=== PATIENT | male | born 1945 | race Caucasian/White ===

== ENCOUNTER → 2016-10-18 | Outpatient (CLI) | payer MEDICARE, OTHER ==
--- NOTE | 2016-10-18 14:56 | RADIOLOGY REPORT (SQ) ---
EXAM DESCRIPTION: CHEST PA/LATERAL COMPLETED DATE/TIME: 10/18/2016 2:32 pm REASON FOR STUDY: APHONIA,PRE OP COMPARISON: None. EXAM PARAMETERS: NUMBER OF VIEWS: two views TECHNIQUE: Digital Frontal and Lateral radiographic views of the chest acquired. RADIATION DOSE: NA LIMITATIONS: none FINDINGS: LUNGS AND PLEURA: Mild chronic interstitial changes are present in the lung bases. MEDIASTINUM AND HILAR STRUCTURES: No masses or contour abnormalities. HEART AND VASCULAR STRUCTURES: Heart normal size. No evidence for failure. BONES: No acute findings. HARDWARE: None in the chest. OTHER: No other significant finding. IMPRESSION: Mild chronic lung changes with no acute cardiopulmonary disease. TECHNICAL DOCUMENTATION: JOB ID: [id number] [employer]- All Rights Reserved
[2016-10-18 14:57] LABS: HEMATOCRIT 43.2 % (37.9-51.0); HEMOGLOBIN 14.9 g/dL (13.5-17.0); HGB HCT DIFFERENCE 1.5; MEAN CORPUSCULAR HEMOGLOBIN 32.4 pg (27.0-33.4); MEAN CORPUSCULAR HGB CONC 34.4 g/dL (32.0-36.0); MEAN CORPUSCULAR VOLUME 94 fl (80-97); RED BLOOD COUNT 4.59 10^6/uL (4.35-5.55); WHITE BLOOD COUNT 4.4 10^3/uL (4.0-10.5)
[2016-10-18 15:25] LABS: ANION GAP 12 (5-19); BLOOD UREA NITROGEN 9 mg/dL (7-20); CALCIUM 9.7 mg/dL (8.4-10.2); CARBON DIOXIDE 26 mmol/L (22-30); CHLORIDE 102 mmol/L (98-107); CREATININE RESULT 0.74 mg/dL (0.52-1.25); GLUCOSE 85 mg/dL (75-110); POTASSIUM 4.2 mmol/L (3.6-5.0); SODIUM 139.7 mmol/L (137-145)
--- NOTE | 2016-10-18 20:33 | EKG REPORT ---
SEVERITY:- ABNORMAL ECG - SINUS RHYTHM BORDERLINE INFERIOR Q WAVES : Confirmed by: Darrell Gudino 18-Oct-2016 20:32:00
== END ==
LOC: OD 13:30
PROVIDERS: ATTEND Otolaryngology
DX: R49.1 Aphonia (principal)
CPT/HCPCS: 36415; 71020; 80048; 85027; 93005; 93010

== ENCOUNTER → 2017-03-23 | Outpatient (CLI) | payer MEDICARE, OTHER ==
--- NOTE | 2017-03-23 08:59 | RADIOLOGY REPORT (SQ) ---
EXAM DESCRIPTION: U/S ABD AORTIC SCREENING COMPLETED DATE/TIME: 03/23/2017 8:12 am REASON FOR STUDY: ENCOUNTER FOR SCREENING FOR CARDIOVASCULAR DISORDERS (Z13.6) Z72.0 TOBACCO USE Z8 7.891 PERSONAL HISTORY OF NICOTINE DEPENDENCE Z13.6 ENCOUNTER FOR SCREENING FOR CARDIOVASCULAR DISO RDERS COMPARISON: None. TECHNIQUE: Static and dynamic grayscale images acquired of the aorta and stored on PACs. Selected co bisi Doppler and spectral images recorded. LIMITATIONS: Limited evaluation due to bowel gas. FINDINGS: AORTIC CALIBER MAXIMAL PROXIMAL: 3.2 cm. MID: 2.53 cm. DISTAL: 1.8 cm. ILIAC DIAMETER RIGHT: Nonvisualized. LEFT nonvisualized. IMPRESSION: Limited examination due to bowel gas. 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 COMMENT: Aorta screening examinations categories: Negative - less than 3 cm. TECHNICAL DOCUMENTATION: JOB ID: [id number] [employer]- All Rights Reserved
--- NOTE | 2017-03-23 10:03 | RADIOLOGY REPORT (SQ) ---
EXAM DESCRIPTION: CT LUNG CANCER SCREENING COMPLETED DATE/TIME: 03/23/2017 7:49 am REASON FOR STUDY: TOBACCO USE (Z72.0), HX OF NICOTINE DEPENDENCE (Z87.891), ENC FOR SCRN CARD Z72.0 TOBACCO USE Z87.891 PERSONAL HISTORY OF NICOTINE DEPENDENCE Z13.6 ENCOUNTER FOR SCREENING FOR CARD IOVASCULAR DISORDERS Has the patient had a Chest CT scan within the past year? No Was the patient offered tobacco cessation counseling? Yes Was the patient engaged in shared decision making for this test? Yes Does the patient have signs or symptoms of Lung Cancer? No Is the patient a smoker? Yes How many packs per year? 365. 1 pack per day. How many years since quitting smoking? NA Patients age: 71 COMPARISON: None. TECHNIQUE: Low Dose CT scan performed of the chest without intravenous contrast for purposes of scre ening for lung cancer. Images reviewed with lung, soft tissue and bone windows. Reconstructed coron al and sagittal MPR images reviewed. All images stored on PACS. All CT scanners at this facility use dose modulation, iterative reconstruction, and/or weight based d osing when appropriate to reduce radiation dose to as low as reasonably achievable (ALARA). [facility]: Dose Right [facility]: CareDose [facility]: Dose Right [facility]: Teradose 4D [facility]: [employer] RADIATION DOSE: CT Rad equipment meets quality standard of care and radiation dose reduction techniq ues were employed. CTDIvol: 2.1 mGy. DLP: 79 mGy-cm. mGy. . LIMITATIONS: None FINDINGS: LUNGS AND PLEURA: Centrilobular emphysema. Bullous disease noted right lower lobe. Fibr otic scarring both lower lobes and lingula. No pulmonary nodules identified. HILAR AND MEDIASTINAL STRUCTURES: No mediastinal or hilar adenopathy. HEART AND VASCULAR STRUCTURES: No aortic aneurysm. No pericardial effusion. No cardiac devices. CORONARY ARTERY CALCIFICATIONS: Atherosclerotic coronary artery calcification. UPPER ABDOMEN, THYROID, BONES, OTHER SOFT TISSUES: Eventration left hemidiaphragm. IMPRESSION: NO SIGNIFICANT FINDING IN THE LUNGS ON NON-CONTRASTED CHEST CT. NO OTHER CLINICALLY SIGNIFICANT/POTENTIALLY CLINICALLY SIGNIFICANT FINDINGS LUNGRADS: LUNGRADS: 1 NEGATIVE. NO NODULES, OR DEFINITELY BENIGN NODULES MODIFIER: NONE RECOMMENDATION: Continue annual screening with LDCT in 12 months. COMMENT: CRITERIA: No lung nodules. Nodules with specific calcifications: Complete, central, popcorn, concentric rings and fat containin g nodules. TECHNICAL DOCUMENTATION: JOB ID: [id number] Quality ID # [id number]: Final reports with documentation of one or more dose reduction techniques (e.g., Au tomated exposure control, adjustment of the mA and/or kV according to patient size, use of iterative reconstruction technique) 2010 [facility]
== END ==
LOC: RAD 07:31
PROVIDERS: ATTEND Family Medicine
DX: Z87.891 Personal history of nicotine dependence (principal); Z13.6 Encounter for screening for cardiovascular disorders
CPT/HCPCS: 76706; G0297

== ENCOUNTER 2017-06-03 15:12 | Inpatient (IN) | payer MEDICARE, OTHER ==
[2017-06-03] MEDS ORDERED: ACETAMINOPHEN 325 MG TABLET PO ONE ×2 (15:20→21:00)
[2017-06-03] MEDS ORDERED: CEFTRIAXONE 1 GM/D5W RTU 50 ML IV ONE ×2 (15:26→16:53)
[2017-06-03] MEDS ORDERED: CEFTRIAXONE SODIUM 1,000 MG in DEXTROSE 5%-WATER 100 ML IV ONE ×2 (16:00→17:45)
--- NOTE | 2017-06-03 16:16 | ER Document Report ---
ED Medical Screen (RME) - General Chief Complaint: Shortness Of Breath Stated Complaint: CHEST PAIN,FEVER,DIFFICULTY BRREATHING Time Seen by Provider: 06/03/17 15:25 Mode of Arrival: Ambulatory Information source: Patient, Dr. Office Notes: 72-year-old male history of trach presents with concern for pneumonia from primary care office, patient noted to be febrile in the office, he denies any new productivity to cough but admits to chest pain. I have greeted and performed a rapid initial assessment of this patient. A comprehensive ED assessment and evaluation of the patient, analysis of test results and completion of the medical decision making process will be conducted by additional ED providers. PHYSICAL EXAMINATION: GENERAL: Well-appearing, well-nourished and in no acute distress. Febrile HEAD: Atraumatic, normocephalic. EYES: Pupils equal round extraocular movements intact, conjunctiva are normal. ENT: Nares patent stoma from trach in place NECK: Normal range of motion LUNGS: No respiratory distress Musculoskeletal: Normal range of motion NEUROLOGICAL: Normal speech, normal gait. PSYCH: Normal mood, normal affect. SKIN: Warm, Dry, normal turgor, no rashes or lesions noted. TRAVEL OUTSIDE OF THE [place] IN LAST 30 DAYS: No - Related Data Allergies/Adverse Reactions: No Known Allergies Allergy (Verified 06/03/17 15:14) Past Medical History - Past Medical History Cardiac Medical History: Reports: Hx Coronary Artery Disease Denies: Hx Heart Attack, Hx Hypertension Pulmonary Medical History: Reports: Hx Asthma, Hx Bronchitis, Hx COPD Denies: Hx Pneumonia Neurological Medical History: Denies: Hx Cerebrovascular Accident, Hx Seizures Musculoskeltal Medical History: Denies Hx Arthritis Past Surgical History: Reports: Hx Oral Surgery - laynectomy 2010 - Immunizations Hx Diphtheria, Pertussis, Tetanus Vaccination: Yes Physical Exam - Vital signs Vitals: Temp Pulse Resp BP Pulse Ox 102.7 F H 94 16 132/76 H 96 06/03/17 15:21 06/03/17 15:21 06/03/17 15:21 06/03/17 15:21 06/03/17 15:21 Course - Vital Signs Vital signs: Temp Pulse Resp BP Pulse Ox 102.7 F H 94 16 132/76 H 96 06/03/17 15:21 06/03/17 15:21 06/03/17 15:21 06/03/17 15:21 06/03/17 15:21
[2017-06-03 16:53] LABS: VENOUS BLOOD BASE EXCESS -0.2 mmol/L; VENOUS BLOOD HCO3 23.6 mmol/L (20-32); VENOUS BLOOD PH 7.43 (7.30-7.42)
[2017-06-03 16:57] LABS: ABSOLUTE BASOPHILS # (AUTO) 0.1 10^3/uL (0.0-0.2); ABSOLUTE LYMPHOCYTES (AUTO) 1.8 10^3/uL (0.5-4.7); ABSOLUTE MONOCYTES (AUTO) 1.1 10^3/uL (0.1-1.4); ABSOLUTE NEUT (AUTO) 11.6 10^3/uL (1.7-8.2); BASOPHILS % (AUTO) 0.5 % (0-2); EOSINOPHILS % (AUTO) 0.2 % (0-6); HEMATOCRIT 42.1 % (37.9-51.0); HEMOGLOBIN 14.8 g/dL (13.5-17.0); LYMPHOCYTES % (AUTO) 12.3 % (13-45); MEAN CORPUSCULAR HGB CONC 35.2 g/dL (32.0-36.0); MEAN CORPUSCULAR VOLUME 91 fl (80-97); MONOCYTES % (AUTO) 7.4 % (3-13); PLATELET COUNT 233 10^3/uL (150-450); RED BLOOD COUNT 4.63 10^6/uL (4.35-5.55); RED CELL DISTRIBUTION WIDTH 12.8 % (11.5-14.0); SEGMENTED NEUTROPHILS % (AUTO) 79.6 % (42-78); TOTAL CELLS COUNTED % (AUTO) 100 %; WHITE BLOOD COUNT 14.6 10^3/uL (4.0-10.5)
[2017-06-03 17:00] LABS: INTERNATIONAL RATION (INR) 1.12
[2017-06-03] MEDS: NORMAL SALINE 1000 ML 1,000 ML IV PRN ×2 (17:08→17:09)
[2017-06-03 17:11] LABS: ALANINE AMINOTRANSFERASE 34 U/L (21-72); ALBUMIN 4.1 g/dL (3.5-5.0); ALKALINE PHOSPHATASE 83 U/L (38-126); ANION GAP 16 (5-19); ASPARTATE AMINO TRANSFERASE 24 U/L (17-59); BILIRUBIN,DIRECT 0.4 mg/dL (0.0-0.4); BILIRUBIN,TOTAL 1.9 mg/dL (0.2-1.3); BLOOD UREA NITROGEN 12 mg/dL (7-20); CALCIUM 9.3 mg/dL (8.4-10.2); CARBON DIOXIDE 22 mmol/L (22-30); CHLORIDE 103 mmol/L (98-107); GLUCOSE 111 mg/dL (75-110); POTASSIUM 4.1 mmol/L (3.6-5.0); SODIUM 140.5 mmol/L (137-145); TOTAL PROTEIN 7.2 g/dL (6.3-8.2)
[2017-06-03 17:15] LABS: APPEARANCE,URINE SLIGHTLY-CLOUDY; BILIRUBIN,URINE NEGATIVE (NEGATIVE); GLUCOSE, URINE NEGATIVE (NEGATIVE); KETONES,URINE TRACE mg/dL (NEGATIVE); LEUKOCYTE ESTERASE,URINE NEGATIVE (NEGATIVE); NITRITE,URINE NEGATIVE (NEGATIVE); PROTEIN,URINE 30 mg/dL (NEGATIVE); URINE SPECIFIC GRAVITY 1.025; UROBILINOGEN,URINE NEGATIVE mg/dL (<2.0)
[2017-06-03 17:16] LABS: COLOR,URINE YELLOW
--- NOTE | 2017-06-03 17:27 | ER Document Report ---
ED General - General Chief Complaint: Shortness Of Breath Stated Complaint: CHEST PAIN,FEVER,DIFFICULTY BRREATHING Time Seen by Provider: 06/03/17 15:25 Mode of Arrival: Ambulatory Information source: Patient, [facility] Records Notes: 72-year-old male with a history of COPD, laryngeal cancer presents with complaint of chest pain and worsening shortness of breath. Patient states chest pain started 3 days prior to arrival. He describes it as intermittent, pressure that is worse with deep breathing. Patient was sent in from his primary care physician after being found febrile. Patient states that he did not know that he had a fever. He denies any worsening cough or sputum production. 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 This was placed approximately 8 months ago. His last admission was at that time. He denies any sick contacts. Patient intermittently wears oxygen when needed. TRAVEL OUTSIDE OF THE [place] IN LAST 30 DAYS: No - HPI Onset: Other Onset/Duration: Gradual, Persistent Quality of pain: Pressure Severity: Mild Associated symptoms: Chest pain, Nonproductive cough, Fever, Hurts to breath. denies: Leg swelling, Nausea, Vomiting, Shortness of breath Exacerbated by: Movement Relieved by: Denies Similar symptoms previously: No Recently seen / treated by doctor: No - Related Data Allergies/Adverse Reactions: No Known Allergies Allergy (Verified 06/03/17 15:14) Past Medical History - General Information source: Patient, Office - Social History Smoking Status: Current Every Day Smoker Chew tobacco use (# tins/day): No Frequency of alcohol use: None Drug Abuse: None Lives with: Spouse/Significant other Family History: Reviewed & Not Pertinent Patient has suicidal ideation: No Patient has homicidal ideation: No - Past Medical History Cardiac Medical History: Reports: Hx Coronary Artery Disease Denies: Hx Heart Attack, Hx Hypertension Pulmonary Medical History: Reports: Hx Asthma, Hx Bronchitis, Hx COPD Denies: Hx Pneumonia Neurological Medical History: Denies: Hx Cerebrovascular Accident, Hx Seizures Renal/ Medical History: Denies: Hx Peritoneal Dialysis Malignancy Medical History: Reports Other - Laryngeal cancer Musculoskeltal Medical History: Denies Hx Arthritis Past Surgical History: Reports: Hx Oral Surgery - laynectomy 2010 - Immunizations Hx Diphtheria, Pertussis, Tetanus Vaccination: Yes Hx Pneumococcal Vaccination: 02/07/09 Review of Systems - Review of Systems Notes: Patient denies fever, chills, nausea, vomiting, headache, ear pain, sore throat , worsening cough, abdominal pain, back pain, dysuria, hematuria, rash, denies sick contacts. Physical Exam - Vital signs Vitals: Temp Pulse Resp BP Pulse Ox 102.7 F H 94 16 132/76 H 96 06/03/17 15:21 06/03/17 15:21 06/03/17 15:21 06/03/17 15:21 06/03/17 15:21 Interpretation: Febrile - Notes Notes: PHYSICAL EXAMINATION: GENERAL: Well-appearing, well-nourished and in no acute distress. HEAD: Atraumatic, normocephalic. EYES: Pupils equal round and reactive to light, extraocular movements intact, sclera anicteric, conjunctiva are normal. ENT: Nares patent, oropharynx clear without exudates. Moist mucous membranes. trach in place. NECK: Normal range of motion, supple without lymphadenopathy LUNGS: No Respiratory distress. Rhonchi LLL field. No accessory muscle use. HEART: Regular rate and rhythm without murmurs ABDOMEN: Soft, nontender, nondistended abdomen. No guarding, no rebound. No masses appreciated. Musculoskeletal: Normal range of motion, no pitting or edema. No cyanosis. NEUROLOGICAL: Cranial nerves grossly intact. Normal speech, normal gait. Normal sensory, motor exams PSYCH: Normal mood, normal affect. SKIN: Warm, Dry, normal turgor, no rashes or lesions noted. Course - Re-evaluation Re-evalutation: Laboratory 06/03/17 06/03/17 06/03/17 16:30 16:30 16:30 WBC 14.6 H RBC 4.63 Hgb 14.8 Hct 42.1 MCV 91 MCH 32.0 MCHC 35.2 RDW 12.8 Plt Count 233 Seg Neutrophils % 79.6 H Lymphocytes % 12.3 L Monocytes % 7.4 Eosinophils % 0.2 Basophils % 0.5 Absolute Neutrophils 11.6 H Absolute Lymphocytes 1.8 Absolute Monocytes 1.1 Absolute Eosinophils 0.0 Absolute Basophils 0.1 PT 15.0 INR 1.12 Carbonic Acid HCO3/H2CO3 Ratio ABG pH ABG pCO2 ABG pO2 ABG HCO3 ABG Total CO2 ABG O2 Saturation ABG Base Excess VBG pH VBG pCO2 VBG HCO3 VBG Base Excess FiO2 Sodium 140.5 Potassium 4.1 Chloride 103 Carbon Dioxide 22 Anion Gap 16 BUN 12 Creatinine 0.71 Est GFR ( Amer) > 60 Est GFR (Non-Af Amer) > 60 Glucose 111 H POC Glucose Lactic Acid Calcium 9.3 Total Bilirubin 1.9 H Direct Bilirubin 0.4 Neonat Total Bilirubin Not Reportable Neonat Direct Bilirubin Not Reportable Neonat Indirect Bili Not Reportable AST 24 ALT 34 Alkaline Phosphatase 83 NT-Pro-B Natriuret Pep Total Protein 7.2 Albumin 4.1 Urine Color Urine Appearance Urine pH Ur Specific [place] Urine Protein Urine Glucose (UA) Urine Ketones Urine Blood Urine Nitrite Urine Bilirubin Urine Urobilinogen Ur Leukocyte Esterase Urine WBC (Auto) Urine RBC (Auto) Squamous Epi Cells Auto Urine Mucus (Auto) Urine Ascorbic Acid 06/03/17 06/03/17 06/03/17 16:30 16:30 16:30 WBC RBC Hgb Hct MCV MCH MCHC RDW Plt Count Seg Neutrophils % Lymphocytes % Monocytes % Eosinophils % Basophils % Absolute Neutrophils Absolute Lymphocytes Absolute Monocytes Absolute Eosinophils Absolute Basophils PT INR Carbonic Acid HCO3/H2CO3 Ratio ABG pH ABG pCO2 ABG pO2 ABG HCO3 ABG Total CO2 ABG O2 Saturation ABG Base Excess VBG pH 7.43 H VBG pCO2 36.0 VBG HCO3 23.6 VBG Base Excess -0.2 FiO2 Sodium Potassium Chloride Carbon Dioxide Anion Gap BUN Creatinine Est GFR ( Amer) Est GFR (Non-Af Amer) Glucose POC Glucose Lactic Acid 0.9 Calcium Total Bilirubin Direct Bilirubin Neonat Total Bilirubin Neonat Direct Bilirubin Neonat Indirect Bili AST ALT Alkaline Phosphatase NT-Pro-B Natriuret Pep 229 Total Protein Albumin Urine Color Urine Appearance Urine pH Ur Specific [place] Urine Protein Urine Glucose (UA) Urine Ketones Urine Blood Urine Nitrite Urine Bilirubin Urine Urobilinogen Ur Leukocyte Esterase Urine WBC (Auto) Urine RBC (Auto) Squamous Epi Cells Auto Urine Mucus (Auto) Urine Ascorbic Acid 06/03/17 06/03/17 06/03/17 16:47 16:49 22:11 WBC RBC Hgb Hct MCV MCH MCHC RDW Plt Count Seg Neutrophils % Lymphocytes % Monocytes % Eosinophils % Basophils % Absolute Neutrophils Absolute Lymphocytes Absolute Monocytes Absolute Eosinophils Absolute Basophils PT INR Carbonic Acid 0.96 L HCO3/H2CO3 Ratio 22:1 ABG pH 7.44 ABG pCO2 31.9 L ABG pO2 61.2 L ABG HCO3 21.2 ABG Total CO2 22.2 L ABG O2 Saturation 92.6 L ABG Base Excess -2.0 VBG pH VBG pCO2 VBG HCO3 VBG Base Excess FiO2 21% Sodium Potassium Chloride Carbon Dioxide Anion Gap BUN Creatinine Est GFR ( Amer) Est GFR (Non-Af Amer) Glucose POC Glucose 108 Lactic Acid Calcium Total Bilirubin Direct Bilirubin Neonat Total Bilirubin Neonat Direct Bilirubin Neonat Indirect Bili AST ALT Alkaline Phosphatase NT-Pro-B Natriuret Pep Total Protein Albumin Urine Color YELLOW Urine Appearance SLIGHTLY-CLOUDY Urine pH 5.0 Ur Specific [place] 1.025 Urine Protein 30 H Urine Glucose (UA) NEGATIVE Urine Ketones TRACE H Urine Blood SMALL H Urine Nitrite NEGATIVE Urine Bilirubin NEGATIVE Urine Urobilinogen NEGATIVE Ur Leukocyte Esterase NEGATIVE Urine WBC (Auto) 2 Urine RBC (Auto) 3 Squamous Epi Cells Auto 1 Urine Mucus (Auto) MANY Urine Ascorbic Acid NEGATIVE Chest/Abdomen CTA 06/03/17 15:26 IMPRESSION: 1. There is no evidence of pulmonary emboli. 2. Multicentric pneumonia involving the right middle lobe, lower lobe, and left lower lobe. 3. Moderate centrilobular pulmonary emphysema. 4. Lower thoracic and lumbar degenerative disc changes and spondylosis. 06/03/17 18:34 Message left for covering physician. 06/03/17 19:14 Second attempt to contact covering physician for Dr. Cassidy 06/03/17 22:27 72-year-old male with history of COPD, laryngeal cancer currently in remission presents with complaint of chest pain, shortness of breath that started 3 days prior to arrival. Upon arrival patient was placed on telescope maintenance and EKG was obtained. Vital signs are reviewed and patient is febrile, not tachycardic and mildly hypertensive. Patient was seen by myself upon arrival. Patient does not appear toxic or dehydrated. They are in no acute distress. Previous medical records and nursing notes reviewed. Significant findings include CTA which shows multi lobar pneumonia. Patient received Rocephin, doxycycline. He is resting comfortably on reevaluation. He is agreeable with admission. Patient was accepted by Dr. Pierson. 06/03/17 23:03 - Vital Signs Vital signs: Temp Pulse Resp BP Pulse Ox 101.6 F H 89 20 145/67 H 95 06/03/17 22:00 06/03/17 22:00 06/03/17 22:00 06/03/17 22:00 06/03/17 22:00 - Laboratory Result Diagrams: 06/03/17 16:30 06/03/17 16:30 Laboratory results interpreted by me: 06/03/17 06/03/17 06/03/17 16:30 16:30 16:30 WBC 14.6 H Seg Neutrophils % 79.6 H Lymphocytes % 12.3 L Absolute Neutrophils 11.6 H VBG pH 7.43 H Glucose 111 H Total Bilirubin 1.9 H Urine Protein Urine Ketones Urine Blood 06/03/17 16:49 WBC Seg Neutrophils % Lymphocytes % Absolute Neutrophils VBG pH Glucose Total Bilirubin Urine Protein 30 H Urine Ketones TRACE H Urine Blood SMALL H - Diagnostic Test Radiology reviewed: Image reviewed, Reports reviewed - EKG Interpretation by Me EKG shows normal: Sinus rhythm, ST-T Waves - depression-ant Rate: Normal Rhythm: NSR Discharge - Discharge Clinical Impression: Multifocal pneumonia, Laryngeal cancer, SOB (shortness of breath) Leukocytosis Qualifiers: Leukocytosis type: unspecified Qualified Code(s): D72.829 - Elevated white blood cell count, unspecified COPD (chronic obstructive pulmonary disease) Qualifiers: COPD type: COPD with acute lower respiratory infection Qualified Code(s): J44.0 - Chronic obstructive pulmonary disease with acute lower respiratory infection Hematuria Qualifiers: Hematuria type: gross Qualified Code(s): R31.0 - Gross hematuria Condition: Good Disposition: ADMITTED INPATIENT Admitting Provider: [facility] Unit Admitted: Medical Floor
[2017-06-03] MEDS ORDERED: IPRATROPIUM/ALBUTEROL 0.5-2.5 MG/3 ML AMPUL NEB ONE (17:28)
--- NOTE | 2017-06-03 18:07 | RADIOLOGY REPORT (SQ) ---
EXAM DESCRIPTION: CTA CHEST COMPLETED DATE/TIME: 06/03/2017 5:42 pm REASON FOR STUDY: cough , fever copd COMPARISON: CT lung cancer screening 03/23/2017 TECHNIQUE: CT scan of the chest performed using helical scanning technique with dynamic intravenous contrast injection. Images reviewed with lung, soft tissue and bone windows. Reconstructed coronal and sagittal MPR images reviewed. Additional 3 dimensional post-processing performed to develop Maximal Intensity Projection images (VA P). All images stored on PACS. All CT scanners at this facility use dose modulation, iterative reconstruction, and/or weight based d osing when appropriate to reduce radiation dose to as low as reasonably achievable (ALARA). [facility]: Dose Right [facility]: CareDose [facility]: Dose Right [facility]: Teradose 4D [facility]: [employer] CONTRAST TYPE AND DOSE: contrast/concentration: Isovue 370.00 mg/ml; Total Contrast Delivered: 74.0 ml; Total Saline Delivered: 80.0 ml Contrast bolus optimized for the pulmonary arteries. Not diagnostic for the aorta. RENAL FUNCTION: BUN 12 creatinine 0.71 RADIATION DOSE: CT Rad equipment meets quality standard of care and radiation dose reduction techniq ues were employed. CTDIvol: 19.2 - 33.1 mGy. DLP: 829 mGy-cm. . LIMITATIONS: None. FINDINGS: LUNGS AND PLEURA: Moderate centrilobular emphysematous changes are present. There is patc hy opacification in the right lower lobe and left lower lobe. There is limited involvement of the ri ght middle lobe medially. AORTA AND GREAT VESSELS: No aneurysm. Contrast bolus not optimized for the aorta. HEART: No pericardial effusion. Moderate to marked coronary artery calcifications. PULMONARY ARTERIES: No emboli visualized in the main pulmonary arteries or the segmental branches. HILAR AND MEDIASTINAL STRUCTURES: No identified masses or abnormal nodes. HARDWARE: None in the chest. UPPER ABDOMEN: No significant findings. Limited exam. THYROID AND OTHER SOFT TISSUES: No masses. No adenopathy. BONES: Lower thoracic and lumbar degenerative disc changes and spondylosis. 3D MIPS: Confirm above findings. OTHER: No other significant finding. IMPRESSION: 1. There is no evidence of pulmonary emboli. 2. Multicentric pneumonia involving the right middle lobe, lower lobe, and left lower lobe. 3. Moderate centrilobular pulmonary emphysema. 4. Lower thoracic and lumbar degenerative disc changes and spondylosis. COMMENT: Quality ID # [id number]: Final reports with documentation of one or more dose reduction techniques (e.g., Automated exposure control, adjustment of the mA and/or kV according to patient size, use of iterative reconstruction technique) TECHNICAL DOCUMENTATION: JOB ID: [id number] [employer]- All Rights Reserved Reading location - IP/workstation name: [email or web address]
--- NOTE | 2017-06-03 18:22 | EKG REPORT ---
SEVERITY:- BORDERLINE ECG - SINUS RHYTHM BORDERLINE INFERIOR Q WAVES MINIMAL ST DEPRESSION, ANTEROLATERAL LEADS : Confirmed by: Rakesh uLna MD 03-Jun-2017 18:21:11
[2017-06-03] MEDS ORDERED: DOXYCYCLINE HYCLATE INJ 100 MG VIAL IV ONE (18:31)
[2017-06-03] MEDS ORDERED: ALBUTEROL SULFATE 0.083% NEB 2.5 MG/3 ML AMPUL NEB PRN (21:33)
[2017-06-03] MEDS ORDERED: ALBUTEROL SULFATE HFA (90 MCG/PUFF) 8 GM MDI (1 MDI/ER DISP) IH PRN (21:33)
[2017-06-03] MEDS ORDERED: NORMAL SALINE 1000 ML 1,000 ML IV PRN (21:34)
[2017-06-03] MEDS ORDERED: CEFEPIME 2 GM/D5W RTU 50 ML IV SCH (22:00)
[2017-06-03] MEDS ORDERED: TIOTROPIUM BROMIDE DPI 5 CAP/KIT (18 MCG/CAP) IH ONE (22:15)
[2017-06-03 22:21] LABS: ARTERIAL BLOOD H2CO3 0.96 mmol/L (1.05-1.35); ARTERIAL BLOOD HCO3 21.2 mmol/L (20-26); ARTERIAL BLOOD O2 SATURATION 92.6 % (94-98); ARTERIAL BLOOD PCO2 31.9 mmHg (35-45); ARTERIAL BLOOD PH 7.44 (7.35-7.45); ARTERIAL BLOOD PO2 61.2 mmHg (80-100); ARTERIAL BLOOD TOTAL CO2 22.2 mmol/L (23-27)
[2017-06-03 22:23] LABS: ARTERIAL BLOOD FIO2 21%
[2017-06-03] MEDS ORDERED: CEFEPIME HCL 2 GM in DEXTROSE 5%-WATER 50 ML IV ONE (22:30)
[2017-06-03] MEDS: IPRATROPIUM BROMIDE HFA 17 MCG/PUFF 200 PUFF/12.9 GM MDI IH SCH (23:14)
[2017-06-03] MEDS: FLUTICASONE/SALMETEROL DISKUS 100-50 MCG/DOSE IH SCH (23:15)
[2017-06-04 07:23] LABS: TROPONIN I < 0.012 ng/mL
[2017-06-04] MEDS: LEVOFLOXACIN 750 MG/D5W RTU 750 MG/150 ML RTUPB IV SCH (11:59)
[2017-06-04] MEDS: FLUTICASONE/SALMETEROL DISKUS 100-50 MCG/DOSE IH SCH ×2 (12:02→22:27)
[2017-06-04] MEDS: IPRATROPIUM BROMIDE HFA 17 MCG/PUFF 200 PUFF/12.9 GM MDI IH SCH ×2 (12:02→22:28)
[2017-06-04] MEDS: TIOTROPIUM BROMIDE DPI 5 CAP/KIT (18 MCG/CAP) IH SCH (12:08)
[2017-06-04] MEDS: ENOXAPARIN SODIUM INJ 40 MG/0.4 ML DISP.SYRIN SUBCUT SCH (12:10)
[2017-06-04] MEDS: CEFEPIME HCL 2 GM in DEXTROSE 5%-WATER 50 ML IV SCH ×2 (12:14→22:30)
[2017-06-04] MEDS: IPRATROPIUM/ALBUTEROL 0.5-2.5 MG/3 ML AMPUL NEB PRN ×2 (14:44→20:29)
--- NOTE | 2017-06-04 16:20 | PDOC H&P ---
History of Present Illness Admission Date/PCP: 06/03/17 19:22 MANUEL SIMS MD History of Present Illness: KAYODE DUNN is a 72 year old male, He has a history of laryngeal cancer status post laryngectomy he has a tracheostoma ,he was referred from Dr. Sims' s office to the emergency room for evaluation of fever, shortness of breath and chest pain. In the emergency room he was evaluated CTA chest was done, it showed moderate centrilobular emphysematous changes, patchy opacification in the right lower lobe and left lower lobe. There was no emboli visualized in the main pulmonary arteries, there is leukocytosis, ABG on room air pH 7.4 PCO2 61.2 bicarbonate 21 CO2 31.9 Past Medical History Cardiac Medical History: Reports: Coronary Artery Disease Pulmonary Medical History: Reports: Asthma, Bronchitis, Chronic Obstructive Pulmonary Disease (COPD) Malignancy Medical History: Reports: Other - Laryngeal cancer Musculoskeltal Medical History: Denies: Arthritis Hematology: Denies: Anemia Social History Lives with: Spouse/Significant other Smoking Status: Current Every Day Smoker Family History Family History: Reviewed & Not Pertinent Parental Family History Reviewed: Yes Children Family History Reviewed: Yes Sibling(s) Family History Reviewed.: Yes Medication/Allergy Home Medications: Albuterol Sulfate [Albuterol Sulfate 2.5mg/3 mL] 1 vial IH Q4HP PRN 06/03/17 Albuterol Sulfate [Ventolin Hfa] 2 puff IH Q4HP PRN 06/03/17 Fluticasone/Salmeterol [Advair 100-50 Diskus 14 Dose/Diskus] 1 inh IH Q12 Ipratropium [place] [Atrovent Hfa] 2 puff IH Q12 06/03/17 Tiotropium [place] [Spiriva Handihaler 5 Cap/Kit (18 Mcg/Cap)] 1 cap IH DAILY Allergies/Adverse Reactions: No Known Allergies Allergy (Verified 06/03/17 15:14) Review of Systems Constitutional: PRESENT: chills Eyes: ABSENT: visual disturbances Ears: ABSENT: hearing changes Cardiovascular: ABSENT: chest pain, dyspnea on exertion, edema, orthropnea, palpitations Respiratory: PRESENT: cough, dyspnea, sputum Gastrointestinal: ABSENT: abdominal pain, constipation, diarrhea, hematemesis, hematochezia, nausea, vomiting Genitourinary: ABSENT: dysuria, hematuria Musculoskeletal: ABSENT: joint swelling Integumentary: ABSENT: rash, wounds Neurological: ABSENT: abnormal gait, abnormal speech, confusion, dizziness, focal weakness, syncope Psychiatric: ABSENT: anxiety, depression, homidical ideation, suicidal ideation Endocrine: ABSENT: cold intolerance, heat intolerance, menstrual abnormalities, polydipsia, polyuria Hematologic/Lymphatic: ABSENT: easy bleeding, easy bruising, lymphadenopathy Physical Exam Vital Signs: Temp Pulse Resp BP Pulse Ox 99.0 F 88 20 134/67 H 98 06/04/17 11:20 06/04/17 14:47 06/04/17 14:47 06/04/17 11:20 06/04/17 14:47 Intake & Output 06/03/17 06/04/17 06/05/17 06:59 06:59 06:59 Intake Total 0 709 Output Total 0 Balance 0 709 Weight 87.2 kg General appearance: PRESENT: mild distress Head exam: PRESENT: atraumatic, normocephalic Eye exam: PRESENT: conjunctiva pink, EOMI, PERRLA Ear exam: PRESENT: normal external ear exam Mouth exam: PRESENT: moist, tongue midline Neck exam: PRESENT: full ROM, tracheostomy Respiratory exam: PRESENT: crackles, rhonchi Cardiovascular exam: PRESENT: RRR, +S1, +S2 Vascular exam: PRESENT: normal capillary refill GI/Abdominal exam: PRESENT: normal bowel sounds, soft Rectal exam: PRESENT: deferred Neurological exam: PRESENT: alert, awake, oriented to person, oriented to place , oriented to time, oriented to situation, CN II-XII grossly intact Psychiatric exam: PRESENT: appropriate affect, normal mood Skin exam: PRESENT: dry, intact, warm Results Laboratory Results: 06/03/17 22:11 Carbonic Acid 0.96 L HCO3/H2CO3 Ratio 22:1 ABG pH 7.44 ABG pCO2 31.9 L ABG pO2 61.2 L ABG HCO3 21.2 ABG O2 Saturation 92.6 L ABG Base Excess -2.0 FiO2 21% 06/04/17 06/04/17 06:06 06:06 Creatine Kinase 56 CK-MB (CK-2) 1.90 Troponin I < 0.012 Impressions: Chest/Abdomen CTA 06/03/17 15:26 IMPRESSION: 1. There is no evidence of pulmonary emboli. 2. Multicentric pneumonia involving the right middle lobe, lower lobe, and left lower lobe. 3. Moderate centrilobular pulmonary emphysema. 4. Lower thoracic and lumbar degenerative disc changes and spondylosis. Assessment & Plan - Diagnosis (1) Bilateral pneumonia Qualifiers: Pneumonia type: due to unspecified organism Lung location: unspecified part of lung Qualified Code(s): J18.9 - Pneumonia, unspecified organism Is this a current diagnosis for this admission?: Yes Plan: Patient is admitted, treated empirically with IV antibiotic, cefepime and Levaquin (2) Laryngeal cancer Is this a current diagnosis for this admission?: Yes Plan: History of laryngeal cancer diagnosis it mostly goal unfortunately, patient still continues to smoke cigarettes (3) Acute hypoxemic respiratory failure Is this a current diagnosis for this admission?: Yes Plan: Continue nasal cannula (4) COPD (chronic obstructive pulmonary disease) Qualifiers: COPD type: COPD with acute lower respiratory infection Qualified Code(s): J44.0 - Chronic obstructive pulmonary disease with acute lower respiratory infection Is this a current diagnosis for this admission?: Yes Plan: Continue DuoNeb nebulizer treatment
[2017-06-04 18:26] LABS: APPEARANCE,URINE CLEAR; BILIRUBIN,URINE NEGATIVE (NEGATIVE); COLOR,URINE YELLOW; GLUCOSE, URINE 50 mg/dL (NEGATIVE); KETONES,URINE TRACE mg/dL (NEGATIVE); LEUKOCYTE ESTERASE,URINE NEGATIVE (NEGATIVE); NITRITE,URINE NEGATIVE (NEGATIVE); PROTEIN,URINE 30 mg/dL (NEGATIVE)
[2017-06-05] MEDS: IPRATROPIUM/ALBUTEROL 0.5-2.5 MG/3 ML AMPUL NEB PRN (09:34)
[2017-06-05] MEDS: LEVOFLOXACIN 750 MG/D5W RTU 750 MG/150 ML RTUPB IV SCH (10:33)
[2017-06-05] MEDS: CEFEPIME HCL 2 GM in DEXTROSE 5%-WATER 50 ML IV SCH ×2 (10:33→22:28)
[2017-06-05] MEDS: ENOXAPARIN SODIUM INJ 40 MG/0.4 ML DISP.SYRIN SUBCUT SCH (10:34)
[2017-06-05] MEDS: IPRATROPIUM BROMIDE HFA 17 MCG/PUFF 200 PUFF/12.9 GM MDI IH SCH ×2 (10:35→22:25)
[2017-06-05] MEDS: TIOTROPIUM BROMIDE DPI 5 CAP/KIT (18 MCG/CAP) IH SCH (10:36)
[2017-06-05] MEDS: FLUTICASONE/SALMETEROL DISKUS 100-50 MCG/DOSE IH SCH ×2 (10:36→22:25)
--- NOTE | 2017-06-05 16:14 | PDOC PROGRESS REPORT ---
Subjective Progress Note for:: 06/05/17 Subjective:: He was admitted yesterday for pneumonia associated with acute hypoxemic respiratory failure seen by the bedside today, He seems to be responding to treatment Reason For Visit: PNEUMONIA Physical Exam Vital Signs: Temp Pulse Resp BP Pulse Ox 99.0 F 78 22 H 127/65 H 99 06/05/17 11:23 06/05/17 11:23 06/05/17 11:23 06/05/17 11:23 06/05/17 12:30 Intake & Output 06/04/17 06/05/17 06/06/17 06:59 06:59 06:59 Intake Total 0 2659 Output Total 0 200 Balance 0 2459 Weight 87.2 kg 86.5 kg General appearance: PRESENT: no acute distress Eye exam: PRESENT: PERRLA Respiratory exam: PRESENT: clear to auscultation jm Cardiovascular exam: PRESENT: +S1, +S2 GI/Abdominal exam: PRESENT: soft Neurological exam: PRESENT: alert Results Laboratory Results: 06/04/17 17:58 Urine Color YELLOW Urine Appearance CLEAR Urine pH 5.0 Ur Specific [place] 1.030 Urine Protein 30 H Urine Glucose (UA) 50 H Urine Ketones TRACE H Urine Blood SMALL H Urine Nitrite NEGATIVE Ur Leukocyte Esterase NEGATIVE Urine WBC (Auto) 2 Urine RBC (Auto) 5 06/04/17 06/04/17 06:06 06:06 Creatine Kinase 56 CK-MB (CK-2) 1.90 Troponin I < 0.012 Impressions: Chest/Abdomen CTA 06/03/17 15:26 IMPRESSION: 1. There is no evidence of pulmonary emboli. 2. Multicentric pneumonia involving the right middle lobe, lower lobe, and left lower lobe. 3. Moderate centrilobular pulmonary emphysema. 4. Lower thoracic and lumbar degenerative disc changes and spondylosis. Assessment & Plan - Diagnosis (1) Bilateral pneumonia Qualifiers: Pneumonia type: due to unspecified organism Lung location: unspecified part of lung Qualified Code(s): J18.9 - Pneumonia, unspecified organism Is this a current diagnosis for this admission?: Yes (2) Laryngeal cancer Is this a current diagnosis for this admission?: Yes (3) Acute hypoxemic respiratory failure Is this a current diagnosis for this admission?: Yes (4) COPD (chronic obstructive pulmonary disease) Qualifiers: COPD type: COPD with acute lower respiratory infection Qualified Code(s): J44.0 - Chronic obstructive pulmonary disease with acute lower respiratory infection Is this a current diagnosis for this admission?: Yes - Plan Summary Plan Summary: Continue antibiotic
[2017-06-06] MEDS ORDERED: ALBUTEROL SULFATE 0.083% NEB 2.5 MG/3 ML AMPUL NEB PRN (07:51)
[2017-06-06] MEDS: ENOXAPARIN SODIUM INJ 40 MG/0.4 ML DISP.SYRIN SUBCUT SCH (09:44)
[2017-06-06] MEDS: LEVOFLOXACIN 750 MG/D5W RTU 750 MG/150 ML RTUPB IV SCH (09:45)
[2017-06-06] MEDS: CEFEPIME HCL 2 GM in DEXTROSE 5%-WATER 50 ML IV SCH ×2 (09:45→20:33)
[2017-06-06] MEDS: TIOTROPIUM BROMIDE DPI 5 CAP/KIT (18 MCG/CAP) IH SCH (10:20)
[2017-06-06] MEDS: FLUTICASONE/SALMETEROL DISKUS 100-50 MCG/DOSE IH SCH ×2 (10:20→20:37)
[2017-06-06] MEDS: IPRATROPIUM BROMIDE HFA 17 MCG/PUFF 200 PUFF/12.9 GM MDI IH SCH ×2 (10:20→20:37)
--- NOTE | 2017-06-06 14:07 | PDOC PROGRESS REPORT ---
Subjective Progress Note for:: 06/06/17 Subjective:: Patient is currently doing well And was admitted for the chest pain and COPD and a pneumonia and feeling much better Reason For Visit: PNEUMONIA Physical Exam Vital Signs: Temp Pulse Resp BP Pulse Ox 98.8 F 74 18 135/74 H 97 06/06/17 12:00 06/06/17 12:00 06/06/17 12:00 06/06/17 12:00 06/06/17 12:00 Intake & Output 06/05/17 06/06/17 06/07/17 06:59 06:59 06:59 Intake Total 2659 2110 Output Total 200 500 Balance 2459 1610 Weight 86.5 kg 89.5 kg General appearance: PRESENT: no acute distress, well-developed, well-nourished Head exam: PRESENT: atraumatic, normocephalic Eye exam: PRESENT: conjunctiva pink, EOMI, PERRLA. ABSENT: scleral icterus Ear exam: PRESENT: normal external ear exam Mouth exam: PRESENT: moist, tongue midline Additional comments: Patient tracheostomy site is intact Neck exam: PRESENT: full ROM. ABSENT: carotid bruit, JVD, lymphadenopathy, thyromegaly Respiratory exam: PRESENT: clear to auscultation jm Cardiovascular exam: PRESENT: RRR. ABSENT: diastolic murmur, rubs, systolic murmur Pulses: PRESENT: normal dorsalis pedis pul, +2 pedal pulses bilateral Vascular exam: PRESENT: normal capillary refill GI/Abdominal exam: PRESENT: normal bowel sounds, soft. ABSENT: distended, guarding, mass, organolmegaly, rebound, tenderness Rectal exam: PRESENT: deferred Musculoskeletal exam: PRESENT: ambulatory Neurological exam: PRESENT: alert, awake, oriented to person, oriented to place , oriented to time, oriented to situation, CN II-XII grossly intact. ABSENT: motor sensory deficit Psychiatric exam: PRESENT: appropriate affect, normal mood. ABSENT: homicidal ideation, suicidal ideation Skin exam: PRESENT: dry, intact, warm. ABSENT: cyanosis, rash Results Laboratory Results: 06/04/17 06/04/17 06:06 06:06 Creatine Kinase 56 CK-MB (CK-2) 1.90 Troponin I < 0.012 Impressions: Chest/Abdomen CTA 06/03/17 15:26 IMPRESSION: 1. There is no evidence of pulmonary emboli. 2. Multicentric pneumonia involving the right middle lobe, lower lobe, and left lower lobe. 3. Moderate centrilobular pulmonary emphysema. 4. Lower thoracic and lumbar degenerative disc changes and spondylosis. Assessment & Plan - Diagnosis (1) Acute hypoxemic respiratory failure Is this a current diagnosis for this admission?: Yes Plan: Currently all resolving (2) Bilateral pneumonia Qualifiers: Pneumonia type: due to unspecified organism Lung location: unspecified part of lung Qualified Code(s): J18.9 - Pneumonia, unspecified organism Is this a current diagnosis for this admission?: Yes Plan: Continues IV antibiotic repeat the chest x-ray (3) COPD (chronic obstructive pulmonary disease) Qualifiers: COPD type: COPD with acute lower respiratory infection Qualified Code(s): J44.0 - Chronic obstructive pulmonary disease with acute lower respiratory infection Is this a current diagnosis for this admission?: Yes (4) Laryngeal cancer Is this a current diagnosis for this admission?: Yes - Time Time Spent with patient: 15-24 minutes Medications reviewed and adjusted accordingly: Yes Anticipated discharge: Home, Home with Homehealth Within: Other - Inpatient Certification Medical Necessity: Need Close Monitoring Due to Risk of Patient Decompensation, Need for IV Antibiotics Post Hospital Care: D/C Sound Cutter Documentation - Plan Summary Plan Summary: Continues to IV antibiotic repeat the chest x-ray
--- NOTE | 2017-06-06 16:15 | RADIOLOGY REPORT (SQ) ---
EXAM DESCRIPTION: CHEST 2 VIEWS COMPLETED DATE/TIME: 06/06/2017 3:13 pm REASON FOR STUDY: Copd/pneumonia COMPARISON: 12/02/2015 EXAM PARAMETERS: NUMBER OF VIEWS: two views TECHNIQUE: Digital Frontal and Lateral radiographic views of the chest acquired. RADIATION DOSE: NA LIMITATIONS: none FINDINGS: LUNGS AND PLEURA: Mild chronic interstitial changes are present. There is no infiltrate o r effusion. No mass is seen. MEDIASTINUM AND HILAR STRUCTURES: No masses or contour abnormalities. HEART AND VASCULAR STRUCTURES: Heart normal size. No evidence for failure. BONES: No acute findings. HARDWARE: None in the chest. OTHER: No other significant finding. IMPRESSION: Chronic lung changes with no acute cardiopulmonary disease. TECHNICAL DOCUMENTATION: JOB ID: [id number] [employer]- All Rights Reserved Reading location - IP/workstation name: [email or web address]
[2017-06-07] MEDS: IPRATROPIUM/ALBUTEROL 0.5-2.5 MG/3 ML AMPUL NEB PRN (09:26)
[2017-06-07] MEDS: CEFEPIME HCL 2 GM in DEXTROSE 5%-WATER 50 ML IV SCH (10:16)
[2017-06-07] MEDS: TIOTROPIUM BROMIDE DPI 5 CAP/KIT (18 MCG/CAP) IH SCH (10:20)
[2017-06-07] MEDS: FLUTICASONE/SALMETEROL DISKUS 100-50 MCG/DOSE IH SCH (10:21)
[2017-06-07] MEDS: IPRATROPIUM BROMIDE HFA 17 MCG/PUFF 200 PUFF/12.9 GM MDI IH SCH (10:31)
[2017-06-07] MEDS: ENOXAPARIN SODIUM INJ 40 MG/0.4 ML DISP.SYRIN SUBCUT SCH (10:32)
[2017-06-07] MEDS: LEVOFLOXACIN 750 MG/D5W RTU 750 MG/150 ML RTUPB IV SCH (11:44)
--- NOTE | 2017-06-07 12:47 | PDOC DISCHARGE SUMMARY ---
General - Admit/Disc Date/PCP Admission Date/Primary Care Provider: 06/03/17 19:22 MANUEL SIMS MD Discharge Date: 06/07/17 - Discharge Diagnosis (1) Acute hypoxemic respiratory failure Is this a current diagnosis for this admission?: Yes Summary: Currently all resolved (2) Bilateral pneumonia Is this a current diagnosis for this admission?: Yes Summary: Currently all get better continues to Levaquin for another 7 days (3) COPD (chronic obstructive pulmonary disease) Is this a current diagnosis for this admission?: Yes Summary: continue to current inhaler and nebulizer treatment (4) Laryngeal cancer Is this a current diagnosis for this admission?: Yes Summary: This post tracheostomy currently all stable - Additional Information Discharge Diet: Cardiac Discharge Activity: Activity As Tolerated Prescriptions: Levofloxacin [Levaquin 500 mg Tablet] 500 mg PO DAILY #7 tablet Home Medications: Albuterol Sulfate [Albuterol Sulfate 2.5mg/3 mL] 1 vial IH Q4HP PRN 06/03/17 Albuterol Sulfate [Ventolin Hfa] 2 puff IH Q4HP PRN 06/03/17 Ipratropium [place] [Atrovent Hfa] 2 puff IH Q12 06/03/17 Fluticasone/Salmeterol [Advair HFA 115-21 mcg Inhaler] 1 puff IH Q12 06/05/17 Tiotropium [place] [Spiriva Respimat] 1 puff IH DAILY 06/05/17 Levofloxacin [Levaquin 500 mg Tablet] 500 mg PO DAILY #7 tablet 06/07/17 History of Present Illness History of Present Illness: KAYODE DUNN is a 72 year old male Patient's present my office with the fever and the chest pain and patients was referred to the emergency department patient have a CT angiogram was done with so some pneumonia and other blood work was stable and patient admitting in the hospital for pneumonia Hospital Course Hospital Course: This is a 72-year-old male present my office because of the fever and chest pain and short of breath and patient was referred to the emergency department where patient was found the pneumonia and patient was treated with the IV antibiotic and patient's response very well Patients remain afebrile and chest x-rays all stable patient's blood work is all stable and patient's ambulating the hallway without any problems and patient 's discharge home with the stable conditions and patient's already have oxygens at home Discussed with the patient about smoking counseling and discussed with the daughter about the patient's current conditions Physical Exam Vital Signs: Temp Pulse Resp BP Pulse Ox 98.7 F 69 16 140/80 H 98 06/07/17 11:28 06/07/17 11:28 06/07/17 11:28 06/07/17 11:28 06/07/17 11:28 Intake & Output 06/06/17 06/07/17 06/08/17 06:59 06:59 06:59 Intake Total 2110 2550 Output Total 500 300 Balance 1610 2250 Weight 89.5 kg 91.7 kg General appearance: PRESENT: no acute distress, well-developed, well-nourished Head exam: PRESENT: atraumatic, normocephalic Eye exam: PRESENT: conjunctiva pink, EOMI, PERRLA. ABSENT: scleral icterus Ear exam: PRESENT: normal external ear exam Mouth exam: PRESENT: moist, tongue midline Additional comments: Tracheostomy site is all intact Neck exam: PRESENT: full ROM. ABSENT: carotid bruit, JVD, lymphadenopathy, thyromegaly Respiratory exam: PRESENT: clear to auscultation jm Cardiovascular exam: PRESENT: RRR. ABSENT: diastolic murmur, rubs, systolic murmur Pulses: PRESENT: normal dorsalis pedis pul, +2 pedal pulses bilateral Vascular exam: PRESENT: normal capillary refill GI/Abdominal exam: PRESENT: normal bowel sounds, soft. ABSENT: distended, guarding, mass, organolmegaly, rebound, tenderness Rectal exam: PRESENT: deferred Musculoskeletal exam: PRESENT: ambulatory Neurological exam: PRESENT: alert, awake, oriented to person, oriented to place , oriented to time, oriented to situation, CN II-XII grossly intact. ABSENT: motor sensory deficit Psychiatric exam: PRESENT: appropriate affect, normal mood. ABSENT: homicidal ideation, suicidal ideation Skin exam: PRESENT: dry, intact, warm. ABSENT: cyanosis, rash Results Laboratory Results: 06/04/17 06/04/17 06:06 06:06 Creatine Kinase 56 CK-MB (CK-2) 1.90 Troponin I < 0.012 Impressions: Chest/Abdomen CTA 06/03/17 15:26 IMPRESSION: 1. There is no evidence of pulmonary emboli. 2. Multicentric pneumonia involving the right middle lobe, lower lobe, and left lower lobe. 3. Moderate centrilobular pulmonary emphysema. 4. Lower thoracic and lumbar degenerative disc changes and spondylosis. Chest X-Ray 06/06/17 00:00 IMPRESSION: Chronic lung changes with no acute cardiopulmonary disease. Qualifiers - * PATIENT BEING DISCHARGED WITH ANY OF THE FOLLOWING DIAGNOSIS: No VTE patient discharged on overlapping Therapy?: Yes Plan Time Spent: Greater than 30 Minutes - Patient's discharge home with the oral antibiotic Following a one-week in office
[2017-06-07 14:14] LABS: ABSOLUTE EOSINOPHILS # (AUTO) 0.2 10^3/uL (0.0-0.6); ABSOLUTE LYMPHOCYTES (AUTO) 1.4 10^3/uL (0.5-4.7); ABSOLUTE MONOCYTES (AUTO) 0.5 10^3/uL (0.1-1.4); ABSOLUTE NEUT (AUTO) 2.9 10^3/uL (1.7-8.2); BASOPHILS % (AUTO) 0.8 % (0-2); EOSINOPHILS % (AUTO) 4.4 % (0-6); HEMATOCRIT 37.7 % (37.9-51.0); HEMOGLOBIN 13.1 g/dL (13.5-17.0); MEAN CORPUSCULAR HEMOGLOBIN 31.5 pg (27.0-33.4); MEAN CORPUSCULAR HGB CONC 34.7 g/dL (32.0-36.0); MEAN CORPUSCULAR VOLUME 91 fl (80-97); MONOCYTES % (AUTO) 9.8 % (3-13); PLATELET COUNT 253 10^3/uL (150-450); RED BLOOD COUNT 4.16 10^6/uL (4.35-5.55); RED CELL DISTRIBUTION WIDTH 12.7 % (11.5-14.0); TOTAL CELLS COUNTED % (AUTO) 100 %
[2017-06-07 14:30] LABS: ANION GAP 11 (5-19); BLOOD UREA NITROGEN 12 mg/dL (7-20); CALCIUM 9.3 mg/dL (8.4-10.2); CARBON DIOXIDE 30 mmol/L (22-30); CHLORIDE 104 mmol/L (98-107); GLUCOSE 94 mg/dL (75-110); POTASSIUM 3.8 mmol/L (3.6-5.0); SODIUM 144.6 mmol/L (137-145)
[2017-06-07 15:04] VITALS: BP 145/67
[2017-06-08] MEDS ORDERED: LEVOFLOXACIN 750 MG TABLET PO SCH (10:00)
== END 2017-06-07 15:35 | disposition home or self-care (01) | DRG 189 ==
LOC: ER 15:12 → EH 19:22 → 4S 21:57
PROVIDERS: ADMIT Family Medicine; ATTEND Family Medicine
DX: J96.01 Acute respiratory failure with hypoxia (principal); J18.9 Pneumonia, unspecified organism; J44.0 Chronic obstructive pulmonary disease with (acute) lower respiratory infection; Z93.0 Tracheostomy status; C32.9 Malignant neoplasm of larynx, unspecified; I25.10 Atherosclerotic heart disease of native coronary artery without angina pectoris; R31.0 Gross hematuria; F17.210 Nicotine dependence, cigarettes, uncomplicated
CPT/HCPCS: 36415; 36600; 71046; 71275; 80048; 80053; 81001; 82550; 82553; 82803; 82962; 83036; 83605; 83880; 84484; 85025; 85610; 87040; 87077; 87086; 87088; 87186; 93005; 93010; 94640; 96361; 96365; 99285; J0692; J0696; J1650; J1956; J3490; J7030; J7620

== ENCOUNTER → 2017-06-28 | Outpatient (CLI) | payer MEDICARE, OTHER ==
--- NOTE | 2017-06-28 16:59 | RADIOLOGY REPORT (SQ) ---
EXAM DESCRIPTION: FOREARM RIGHT COMPLETED DATE/TIME: 06/28/2017 3:12 pm REASON FOR STUDY: UNSP INJURY OF RIGHT WRIST, HAND AND FINGER(S), INIT ENCNTR S69.91XA UNSP INJURY OF RIGHT WRIST, HAND AND FINGER(S), INI COMPARISON: Right hand films three views NUMBER OF VIEWS: Two views. TECHNIQUE: Two radiographic images acquired of the right forearm, including elbow and wrist in at le ast one projection. LIMITATIONS: None. FINDINGS: MINERALIZATION: Normal. BONES: No acute fracture. No worrisome bone lesions. SOFT TISSUES: There is dorsal distal forearm and dorsal wrist soft tissue swelling without radiopaque foreign body or soft tissue gas. OTHER: Osteoarthritis is present with joint space narrowing and bony spurring at the radiocarpal join t and at the radiohumeral joint. IMPRESSION: No acute fracture. Dorsal soft tissue swelling. TECHNICAL DOCUMENTATION: JOB ID: [id number] [employer]- All Rights Reserved Reading location - IP/workstation name: [email or web address]
--- NOTE | 2017-06-28 17:00 | RADIOLOGY REPORT (SQ) ---
EXAM DESCRIPTION: HAND RIGHT 3 VIEWS COMPLETED DATE/TIME: 06/28/2017 3:12 pm REASON FOR STUDY: UNSP INJURY OF RIGHT WRIST, HAND AND FINGER(S), INIT ENCNTR S69.91XA UNSP INJURY OF RIGHT WRIST, HAND AND FINGER(S), INI COMPARISON: Right forearm two views EXAM PARAMETERS: NUMBER OF VIEWS: Three views. TECHNIQUE: AP, lateral and oblique radiographic images acquired of the right hand. LIMITATIONS: None. FINDINGS: MINERALIZATION: Normal. BONES: No acute fracture or dislocation. No worrisome bone lesions. JOINTS: There is multifocal osteoarthritis with joint space narrowing and mild bony spurring involvin g the radiocarpal joint, 1st 2nd and 3rd metacarpophalangeal joints, and the 2nd finger distal interp halangeal joint. SOFT TISSUES: 2nd finger soft tissue swelling. Dorsal right hand soft tissue swelling. No soft tiss ue gas. No foreign body. OTHER: No other significant finding. IMPRESSION: No acute fracture TECHNICAL DOCUMENTATION: JOB ID: [id number] [employer]- All Rights Reserved Reading location - IP/workstation name: [email or web address]
== END ==
LOC: OD 14:59
PROVIDERS: ATTEND Family Medicine
DX: S69.91XA Unspecified injury of right wrist, hand and finger(s), initial encounter (principal); X58.XXXA Exposure to other specified factors, initial encounter; Y93.9 Activity, unspecified; Y92.9 Unspecified place or not applicable

== ENCOUNTER → 2017-07-05 | Outpatient (CLI) | payer MEDICARE, OTHER ==
[2017-07-05 09:50] LABS: ABSOLUTE BASOPHILS # (AUTO) 0.1 10^3/uL (0.0-0.2); ABSOLUTE EOSINOPHILS # (AUTO) 0.5 10^3/uL (0.0-0.6); ABSOLUTE LYMPHOCYTES (AUTO) 1.6 10^3/uL (0.5-4.7); ABSOLUTE MONOCYTES (AUTO) 0.5 10^3/uL (0.1-1.4); ABSOLUTE NEUT (AUTO) 2.5 10^3/uL (1.7-8.2); LYMPHOCYTES % (AUTO) 30.7 % (13-45); MEAN CORPUSCULAR HEMOGLOBIN 31.5 pg (27.0-33.4); MEAN CORPUSCULAR VOLUME 90 fl (80-97); MONOCYTES % (AUTO) 9.2 % (3-13); PLATELET COUNT 230 10^3/uL (150-450); RED BLOOD COUNT 4.45 10^6/uL (4.35-5.55); RED CELL DISTRIBUTION WIDTH 13.1 % (11.5-14.0); SEGMENTED NEUTROPHILS % (AUTO) 49.1 % (42-78); TOTAL CELLS COUNTED % (AUTO) 100 %; WHITE BLOOD COUNT 5.1 10^3/uL (4.0-10.5)
[2017-07-05 10:27] LABS: ERYTHROCYTE SEDIMENTATION RATE 16 mm/hr (0-20)
[2017-07-05 10:32] LABS: C-REACTIVE PROTEIN 6.9 mg/L (<10.0); URIC ACID 4.8 mg/dL (3.5-8.5)
== END ==
LOC: LAB 09:31
PROVIDERS: ATTEND Orthopaedic Surgery
DX: M79.641 Pain in right hand (principal)
CPT/HCPCS: 36415; 84550; 85025; 85652; 86140

== ENCOUNTER 2017-08-06 19:34 | Inpatient (IN) | payer MEDICARE, OTHER ==
[2017-08-06] MEDS ORDERED: ALBUTEROL SULFATE 0.083% NEB 2.5 MG/3 ML AMPUL NEB ONE ×3 (19:40→19:57)
[2017-08-06] MEDS ORDERED: NITROGLYCERIN/D5W 50 MG/250 ML RTUINJ IV ONE (19:47)
[2017-08-06] MEDS ORDERED: NITROGLYCERIN/D5W 50 MG/250 ML RTUINJ IV PRN (19:56)
[2017-08-06] MEDS ORDERED: LEVOFLOXACIN 750 MG/D5W RTU 750 MG/150 ML RTUPB IV ONE (19:57)
[2017-08-06] MEDS ORDERED: LORAZEPAM INJ 2 MG/1 ML VIAL IV ONE (19:57)
--- NOTE | 2017-08-06 20:02 | ER Document Report ---
ED General - General Stated Complaint: TROUBLE BREATHING Time Seen by Provider: 08/06/17 19:56 Cannot obtain history due to: Unstable vital signs, Other - Tracheostomy Notes: Patient is a 72 year old male with a history of COPD, laryngectomy with a tracheostomy in place but no use of a trach or a collar who presents by EMS in severe respiratory distress. Per EMS report the patient has been having progressively worsening shortness of breath for the past 2-3 days that became abruptly much worse today. EMS found his saturations initially be in the low 80s and for him to be profoundly hypertensive with systolic blood pressures in the 220s. Patient was also noted to be severely tachypneic and retracting. History is limited secondary to the acuity of the patient's presentation as well as his inability to speak with the tracheostomy in the setting of respiratory distress. TRAVEL OUTSIDE OF THE [place] IN LAST 30 DAYS: No - Related Data Allergies/Adverse Reactions: No Known Allergies Allergy (Verified 06/03/17 15:14) Past Medical History - General Information source: Emergency Med Personnel Cannot obtain history due to: Unstable vital signs, Other - Social History Smoking Status: Current Every Day Smoker Frequency of alcohol use: None Drug Abuse: None Lives with: Family Family History: Reviewed & Not Pertinent - Past Medical History Cardiac Medical History: Reports: Hx Coronary Artery Disease Denies: Hx Heart Attack, Hx Hypertension Pulmonary Medical History: Reports: Hx Asthma, Hx Bronchitis, Hx COPD Denies: Hx Pneumonia Neurological Medical History: Denies: Hx Cerebrovascular Accident, Hx Seizures Renal/ Medical History: Denies: Hx Peritoneal Dialysis Musculoskeltal Medical History: Denies Hx Arthritis Past Surgical History: Reports: Hx Oral Surgery - laynectomy 2010 - Immunizations Hx Diphtheria, Pertussis, Tetanus Vaccination: Yes Hx Pneumococcal Vaccination: 02/07/09 Review of Systems - Review of Systems Notes: Constitutional: Negative for fever. HENT: Negative for sore throat. Eyes: Negative for visual changes. Cardiovascular: Negative for chest pain. Respiratory: Positive for shortness of breath and cough Gastrointestinal: Negative for abdominal pain, vomiting or diarrhea. Genitourinary: Negative for dysuria. Musculoskeletal: Negative for back pain. Skin: Negative for rash. Neurological: Negative for headaches, weakness or numbness. 10 point ROS negative except as marked above and in HPI. Physical Exam - Vital signs Vitals: Resp Pulse Ox 28 H 98 08/06/17 19:42 08/06/17 19:42 Interpretation: Hypertensive, Tachycardic, Tachypneic Notes: PHYSICAL EXAMINATION: GENERAL: Appears older than stated age, in moderate to severe respiratory distress HEAD: Atraumatic, normocephalic. EYES: Pupils equal round and reactive to light, extraocular movements intact, sclera anicteric, conjunctiva are normal. ENT: nares patent, oropharynx clear without exudates. Moderately dry mucous membranes. NECK: Tracheostomy stoma present without a Shiley in place. supple without lymphadenopathy LUNGS: Severe tachypnea, 42 breaths per minute. Retracting the intercostal and supraclavicular spaces. Scattered wheezing both in the inspiratory next Tory phase in all lung donaldson as well as diminished air movement at the bases bilaterally. Scattered rales throughout. HEART: Regular tachycardia without murmurs ABDOMEN: Soft, nontender, normoactive bowel sounds. No guarding, no rebound. No masses appreciated. EXTREMITIES: Normal range of motion, no pitting or edema. No cyanosis. NEUROLOGICAL: No focal neurological deficits. Moves all extremities spontaneously and on command. PSYCH: Moderately anxious SKIN: Warm, Dry, normal turgor, no rashes or lesions noted. Course - Re-evaluation Re-evalutation: 08/06/17 19:58 Documentation is necessarily delayed as I have been at this patient's bedside continuously for the past 25 minutes. The patient presents in severe respiratory distress, history of a tracheostomy but does not have a trach in place present with severe shortness of breath. On initial presentation per EMS he was saturating in the low 80s, severely tachypneic and tachycardic with profound hypertension. Initial pressures for EMS were in the 220 systolic. At time of presentation patient is in respiratory distress, breathing 32 times per minute, scattered wheezing and rales throughout. Pleural ultrasound does show scattered B-lines although with no evidence of cardiomegaly on bedside echocardiogram. Patient does not appear overtly volume overloaded. He denies any chest pain. He has already most recently Solu-Medrol by EMS as well as 2 g of magnesium. He has been placed on continuous nebulizers by EMS via a trach collar and these are being continued here in the emergency department. The patient was also given a 1 mg push dose of nitroglycerin and has subsequently been started on infusion of nitroglycerin at 80 mcg/min to target a systolic blood pressure less than 160. Patient is also quite anxious so a small dose of lorazepam 1 mg will be administered. Patient's chest x-ray does not show any overt cardiomegaly, trace vascular congestion, no focal consolidation. Labs are pending. If patient deteriorates he has apparently no connection between his oropharynx and his trachea per his report. I would have to place a trach into his stoma which she states that has not been in place for over 7 years and use a ventilator to assist. However at this time will continue on continuous nebulizers and continue to monitor the patient. He remains critically ill in very guarded condition. 08/06/17 20:33 Patient nitroglycerin infusion has been able to wean down to 30 minute grams per minute as his blood pressure is currently 139 on 114. Patient is currently saturating 35% on trach collar. Continuous nebs are ongoing. I have discussed placing a Shiley trach with the patient and he is extraordinarily resistant to this. He states he has not had one in 6-7 years. I did contact Dr. Caceres surgeon compensation business partner who states that it would be safe and appropriate to place a Shiley catheter through the existing tracheostomy stoma. The patient however states that he cannot tolerate this, stating when he has secretions he feels like he is choking and strongly prefers to not have one placed. I have emphasized the patient that he continues to have moderate respiratory distress and that I am unable to place him on BiPAP as there is no connection between his oropharynx and his trachea. Informed him that the only additional option other than continuing our current management would be to insert a Shiley and begin ventilating him. Will continue to monitor at this time point as the patient declined this intervention at this time point. 08/06/17 21:04 Patient has had significant improvement in his work of breathing. his blood pressure has normalized to the point where we are able to discontinue his nitroglycerin infusion. I no longer believe that the patient will Shiley placement for ventilator assistance. I have discussed with the physician on- call for Dr. Cassidy, Dr. Pierson who is excepted the patient for admission. - Vital Signs Vital signs: Temp Pulse Resp BP Pulse Ox 98.2 F 95 20 130/71 H 96 08/07/17 03:06 08/07/17 03:06 08/07/17 03:06 08/07/17 03:06 08/07/17 03:06 - Laboratory Result Diagrams: 08/07/17 01:50 08/07/17 01:50 Laboratory results interpreted by me: 08/06/17 08/06/17 08/06/17 19:47 19:47 19:47 Eosinophils % 8.3 H Absolute Eosinophils 0.8 H APTT 36.8 H Glucose 115 H Phosphorus Magnesium Direct Bilirubin 0.5 H Lipase 08/06/17 19:47 Eosinophils % Absolute Eosinophils APTT Glucose Phosphorus 4.7 H Magnesium 2.8 H Direct Bilirubin Lipase 11.8 L - Diagnostic Test Radiology reviewed: Image reviewed, Reports reviewed Radiology results interpreted by me: 08/06/17 21:07 Chest x-ray: No acute infiltrate, possible trace vascular congestion, hyperinflation consistent with COPD. Critical Care Note - Critical Care Note Total time excluding time spent on procedures (mins): 38 Comments: Critical care time spent obtaining history from patient or surrogate, discussions with consultants, development of treatment plan with patient or surrogate, evaluation of patient's response to treatment, examination of patient , ordering and performing treatments and interventions, ordering and review of laboratory studies, re-evaluation of patient's condition, ordering and review of radiographic studies and review of old charts Discharge - Discharge Clinical Impression: Tracheostomy dependence, Respiratory distress, COPD exacerbation Condition: Fair Disposition: ADMITTED INPATIENT Admitting Provider: Kenna Unit Admitted: [facility]
--- NOTE | 2017-08-06 20:07 | RADIOLOGY REPORT (SQ) ---
EXAM DESCRIPTION: CHEST SINGLE VIEW COMPLETED DATE/TIME: 08/06/2017 7:59 pm REASON FOR STUDY: sob COMPARISON: 06/06/2017 EXAM PARAMETERS: NUMBER OF VIEWS: One view. TECHNIQUE: Single frontal radiographic view of the chest acquired. RADIATION DOSE: NA LIMITATIONS: None. FINDINGS: LUNGS AND PLEURA: Stable radiographic appearance of the lungs demonstrating mild chronic i nterstitial changes. No focal consolidation. No pneumothorax. No effusion. MEDIASTINUM AND HILAR STRUCTURES: No masses. Contour normal. HEART AND VASCULAR STRUCTURES: Heart normal in size. Normal vasculature. BONES: No acute findings. HARDWARE: None in the chest. OTHER: No other significant finding. IMPRESSION: Stable radiographic appearance of the chest. No evidence of acute cardiopulmonary abnor mality. TECHNICAL DOCUMENTATION: JOB ID: [id number] [employer]- All Rights Reserved Reading location - IP/workstation name: [email or web address]
[2017-08-06 20:15] LABS: ABSOLUTE BASOPHILS # (AUTO) 0.1 10^3/uL (0.0-0.2); ABSOLUTE EOSINOPHILS # (AUTO) 0.8 10^3/uL (0.0-0.6); ABSOLUTE LYMPHOCYTES (AUTO) 2.9 10^3/uL (0.5-4.7); ABSOLUTE MONOCYTES (AUTO) 0.8 10^3/uL (0.1-1.4); ABSOLUTE NEUT (AUTO) 5.1 10^3/uL (1.7-8.2); BASOPHILS % (AUTO) 0.9 % (0-2); EOSINOPHILS % (AUTO) 8.3 % (0-6); HEMATOCRIT 46.4 % (37.9-51.0); HEMOGLOBIN 16.2 g/dL (13.5-17.0); LYMPHOCYTES % (AUTO) 29.9 % (13-45); MEAN CORPUSCULAR HEMOGLOBIN 31.7 pg (27.0-33.4); MEAN CORPUSCULAR VOLUME 91 fl (80-97); MONOCYTES % (AUTO) 7.8 % (3-13); PLATELET COUNT 265 10^3/uL (150-450); RED BLOOD COUNT 5.12 10^6/uL (4.35-5.55); RED CELL DISTRIBUTION WIDTH 13.3 % (11.5-14.0); SEGMENTED NEUTROPHILS % (AUTO) 53.1 % (42-78); TOTAL CELLS COUNTED % (AUTO) 100 %; WHITE BLOOD COUNT 9.7 10^3/uL (4.0-10.5)
[2017-08-06] MEDS ORDERED: LEVALBUTEROL HCL NEB 1.25 MG/3 ML AMPUL NEB ONE (20:35)
[2017-08-06] MEDS ORDERED: IPRATROPIUM/ALBUTEROL 0.5-2.5 MG/3 ML AMPUL NEB ONE (20:41)
[2017-08-06 20:45] LABS: ALANINE AMINOTRANSFERASE 36 U/L (21-72); ALBUMIN 4.7 g/dL (3.5-5.0); ALKALINE PHOSPHATASE 93 U/L (38-126); ANION GAP 11 (5-19); ASPARTATE AMINO TRANSFERASE 30 U/L (17-59); BILIRUBIN,DIRECT 0.5 mg/dL (0.0-0.4); BILIRUBIN,TOTAL 0.9 mg/dL (0.2-1.3); BLOOD UREA NITROGEN 8 mg/dL (7-20); CALCIUM 9.5 mg/dL (8.4-10.2); CARBON DIOXIDE 30 mmol/L (22-30); CHLORIDE 101 mmol/L (98-107); GLUCOSE 115 mg/dL (75-110); POTASSIUM 4.2 mmol/L (3.6-5.0); SODIUM 142.3 mmol/L (137-145); TOTAL PROTEIN 7.8 g/dL (6.3-8.2)
[2017-08-06] MEDS ORDERED: NORMAL SALINE 1000 ML 1,000 ML IV ONE (21:07)
[2017-08-06 21:32] LABS: VENOUS BLOOD BASE EXCESS -1.6 mmol/L; VENOUS BLOOD HCO3 26.5 mmol/L (20-32); VENOUS BLOOD PH 7.28 (7.30-7.42)
[2017-08-06 22:20] LABS: INTERNATIONAL RATION (INR) 0.98; PROTHROMBIN TIME 13.5 SEC (11.4-15.4)
[2017-08-06 22:21] LABS: PARTIAL THROMBOPLASTIN TIME 36.8 SEC (23.5-35.8)
[2017-08-06 22:29] LABS: LIPASE 11.8 U/L (23-300); PHOSPHORUS 4.7 mg/dL (2.5-4.5)
[2017-08-06 22:39] LABS: ARTERIAL BLOOD BASE EXCESS -3.1 mmol/L; ARTERIAL BLOOD H2CO3 1.23 mmol/L (1.05-1.35); ARTERIAL BLOOD HCO3 22.2 mmol/L (20-26); ARTERIAL BLOOD O2 SATURATION 96.8 % (94-98); ARTERIAL BLOOD PCO2 40.9 mmHg (35-45); ARTERIAL BLOOD PH 7.35 (7.35-7.45); ARTERIAL BLOOD TOTAL CO2 23.5 mmol/L (23-27)
[2017-08-06 22:42] LABS: CREATINE KINASE MB 3.56 ng/mL (<4.55)
[2017-08-06 22:43] LABS: TROPONIN I < 0.012 ng/mL
[2017-08-06 22:44] LABS: ARTERIAL BLOOD FIO2 50%
[2017-08-06 22:48] LABS: FREE T4 (FREE THYROXINE) 1.32 ng/dL (0.78-2.19)
[2017-08-06 23:01] LABS: THYROID STIMULATING HORMONE 4.4 uIU/mL (0.47-4.68)
[2017-08-07 02:16] LABS: ABSOLUTE LYMPHOCYTES (AUTO) 0.4 10^3/uL (0.5-4.7); ABSOLUTE MONOCYTES (AUTO) 0.1 10^3/uL (0.1-1.4); ABSOLUTE NEUT (AUTO) 6.2 10^3/uL (1.7-8.2); BASOPHILS % (AUTO) 0.3 % (0-2); EOSINOPHILS % (AUTO) 0.5 % (0-6); HEMATOCRIT 44.2 % (37.9-51.0); HEMOGLOBIN 15.7 g/dL (13.5-17.0); LYMPHOCYTES % (AUTO) 5.7 % (13-45); MEAN CORPUSCULAR HGB CONC 35.6 g/dL (32.0-36.0); MEAN CORPUSCULAR VOLUME 90 fl (80-97); MONOCYTES % (AUTO) 1.2 % (3-13); PLATELET COUNT 219 10^3/uL (150-450); RED BLOOD COUNT 4.91 10^6/uL (4.35-5.55); RED CELL DISTRIBUTION WIDTH 13.4 % (11.5-14.0); SEGMENTED NEUTROPHILS % (AUTO) 92.3 % (42-78); TOTAL CELLS COUNTED % (AUTO) 100 %; WHITE BLOOD COUNT 6.7 10^3/uL (4.0-10.5)
[2017-08-07 02:22] LABS: ALANINE AMINOTRANSFERASE 36 U/L (21-72); ALBUMIN 4.4 g/dL (3.5-5.0); ALKALINE PHOSPHATASE 82 U/L (38-126); ANION GAP 14 (5-19); ASPARTATE AMINO TRANSFERASE 27 U/L (17-59); BILIRUBIN,DIRECT 0.4 mg/dL (0.0-0.4); BILIRUBIN,TOTAL 0.8 mg/dL (0.2-1.3); BLOOD UREA NITROGEN 13 mg/dL (7-20); CALCIUM 9.5 mg/dL (8.4-10.2); CARBON DIOXIDE 25 mmol/L (22-30); CHLORIDE 103 mmol/L (98-107); GLUCOSE 164 mg/dL (75-110); POTASSIUM 4.1 mmol/L (3.6-5.0); SODIUM 141.9 mmol/L (137-145); TOTAL PROTEIN 7.3 g/dL (6.3-8.2)
[2017-08-07 02:40] LABS: CREATINE KINASE MB 4.72 ng/mL (<4.55); TROPONIN I 0.015 ng/mL
[2017-08-07] MEDS: METHYLPREDNISOLONE INJ 125 MG/2 ML SDV IV SCH ×3 (05:59→21:32)
[2017-08-07 07:02] LABS: APPEARANCE,URINE CLEAR; BILIRUBIN,URINE NEGATIVE (NEGATIVE); COLOR,URINE YELLOW; GLUCOSE, URINE 50 mg/dL (NEGATIVE); KETONES,URINE TRACE mg/dL (NEGATIVE); LEUKOCYTE ESTERASE,URINE TRACE (NEGATIVE); NITRITE,URINE NEGATIVE (NEGATIVE); PROTEIN,URINE NEGATIVE (NEGATIVE); URINE SPECIFIC GRAVITY 1.015; UROBILINOGEN,URINE NEGATIVE mg/dL (<2.0)
[2017-08-07 07:30] LABS: URINE AMPHETAMINES SCREEN NEGATIVE; URINE BARBITURATES SCREEN NEGATIVE; URINE BENZODIAZEPINES SCREEN NEGATIVE; URINE COCAINE SCREEN NEGATIVE; URINE MARIJUANA (THC) SCREEN NEGATIVE; URINE METHADONE SCREEN NEGATIVE; URINE PHENCYCLIDINE SCREEN NEGATIVE
[2017-08-07 08:30] LABS: CREATINE KINASE MB 6.86 ng/mL (<4.55)
[2017-08-07 08:36] LABS: TROPONIN I < 0.012 ng/mL
[2017-08-07] MEDS: LEVOFLOXACIN 750 MG/D5W RTU 750 MG/150 ML RTUPB IV SCH ×2 (09:20→21:29)
[2017-08-07] MEDS: IPRATROPIUM/ALBUTEROL 0.5-2.5 MG/3 ML AMPUL NEB PRN ×4 (09:55→20:13)
--- NOTE | 2017-08-07 13:18 | PDOC H&P ---
History of Present Illness Admission Date/PCP: 08/06/17 21:13 MANUEL SIMS MD History of Present Illness: KAYODE DUNN is a 72 year old male he has a history of chronic obstructive pulmonary disease, laryngeal cancer status post laryngectomy with a stoma in the trachea he came to the emergency room last night for evaluation of severe shortness of breath for the past 2-3 days. In the emergency room he was found to have hypercapnic respiratory acidosis there was no focal consolidation on the chest x-ray or any diffuse interstitial lung disease, she was audibly wheezing also found was severe hypertension in the hypertensive urgency range. In the emergency room he was treated with IV nitroglycerin infusion for the blood pressure and also treated with bronchodilators, DuoNeb with Solu-Medrol after stabilization in the emergency room it was felt that he needed to be admitted to the hospital for continuity of care. Patient continued to smoke cigarettes despite laryngeal cancer with laryngectomy, he is on Advair and Spiriva, I am not sure how effective this regimen is, he has a stoma in the trachea that is open to the environment obviously losing the medication. I saw patient by the bedside, on auscultation of the chest there is diffuse scattered wheeze in both lung donaldson Past Medical History Cardiac Medical History: Reports: Coronary Artery Disease Pulmonary Medical History: Reports: Asthma, Bronchitis, Chronic Obstructive Pulmonary Disease (COPD) Social History Lives with: Family Smoking Status: Current Every Day Smoker Number of Years Smokin Frequency of Alcohol Use: Occasional Hx Recreational Drug Use: No Hx Prescription Drug Abuse: No Family History Family History: Reviewed & Not Pertinent Parental Family History Reviewed: Yes Children Family History Reviewed: Yes Sibling(s) Family History Reviewed.: Yes Medication/Allergy Home Medications: Albuterol Sulfate [Albuterol Sulfate 2.5mg/3 mL] 2.5 mg NEB RTBIDP PRN 06/03/17 Albuterol Sulfate [Ventolin Hfa] 2 puff IH Q4HP PRN 06/03/17 Fluticasone/Salmeterol [Advair HFA 115-21 mcg Inhaler] 2 puff IH Q12 06/05/17 Tiotropium [place] [Spiriva Respimat] 1 puff IH Q12 06/05/17 Atorvastatin Calcium [Lipitor 10 mg Tablet] 10 mg PO QHS 08/07/17 Ipratropium [place] [Atrovent 0.02% Neb 0.5 mg/2.5 ml Ampul] 0.5 mg NEB RTBIDP PRN 08/07/17 Allergies/Adverse Reactions: No Known Allergies Allergy (Verified 06/03/17 15:14) Review of Systems Eyes: ABSENT: visual disturbances Ears: ABSENT: hearing changes Cardiovascular: ABSENT: chest pain, dyspnea on exertion, edema, orthropnea, palpitations Respiratory: PRESENT: cough, dyspnea Gastrointestinal: ABSENT: abdominal pain, constipation, diarrhea, hematemesis, hematochezia, nausea, vomiting Genitourinary: ABSENT: dysuria, hematuria Musculoskeletal: ABSENT: joint swelling Integumentary: ABSENT: rash, wounds Neurological: ABSENT: abnormal gait, abnormal speech, confusion, dizziness, focal weakness, syncope Psychiatric: ABSENT: anxiety, depression, homidical ideation, suicidal ideation Endocrine: ABSENT: cold intolerance, heat intolerance, menstrual abnormalities, polydipsia, polyuria Hematologic/Lymphatic: ABSENT: easy bleeding, easy bruising, lymphadenopathy Physical Exam Vital Signs: Temp Pulse Resp BP Pulse Ox 98.8 F 90 18 133/96 H 94 08/07/17 07:36 08/07/17 09:55 08/07/17 09:55 08/07/17 07:36 08/07/17 09:55 Intake & Output 08/06/17 08/07/17 08/08/17 06:59 06:59 06:59 Intake Total 437 Output Total 0 Balance 437 Weight 82.1 kg General appearance: PRESENT: mild distress Head exam: PRESENT: atraumatic, normocephalic Eye exam: PRESENT: PERRLA Neck exam: PRESENT: tracheostomy - stoma Respiratory exam: PRESENT: wheezes Cardiovascular exam: PRESENT: RRR, +S1, +S2 Vascular exam: PRESENT: normal capillary refill GI/Abdominal exam: PRESENT: soft Rectal exam: PRESENT: deferred Neurological exam: PRESENT: alert, CN II-XII grossly intact Skin exam: PRESENT: dry, intact, warm Results Laboratory Results: 08/07/17 01:50 08/07/17 01:50 08/06/17 08/06/17 08/06/17 21:15 22:20 22:20 WBC RBC Hgb Hct MCV MCH MCHC RDW Plt Count Seg Neutrophils % Lymphocytes % Monocytes % Eosinophils % Basophils % Absolute Neutrophils Absolute Lymphocytes Absolute Monocytes Absolute Eosinophils Absolute Basophils Carbonic Acid 1.23 HCO3/H2CO3 Ratio 18:1 ABG pH 7.35 ABG pCO2 40.9 ABG pO2 93.0 ABG HCO3 22.2 ABG O2 Saturation 96.8 ABG Base Excess -3.1 VBG pH 7.28 L VBG pCO2 58.0 VBG HCO3 26.5 VBG Base Excess -1.6 FiO2 50% Sodium Potassium Chloride Carbon Dioxide Anion Gap BUN Creatinine Est GFR ( Amer) Est GFR (Non-Af Amer) Glucose Calcium Total Bilirubin AST ALT Alkaline Phosphatase Ammonia < 8.7 L Total Protein Albumin Urine Color Urine Appearance Urine pH Ur Specific Carriere Urine Protein Urine Glucose (UA) Urine Ketones Urine Blood Urine Nitrite Ur Leukocyte Esterase Urine WBC (Auto) Urine RBC (Auto) 08/07/17 08/07/17 08/07/17 01:50 01:50 06:45 WBC 6.7 RBC 4.91 Hgb 15.7 Hct 44.2 MCV 90 MCH 32.0 MCHC 35.6 RDW 13.4 Plt Count 219 Seg Neutrophils % 92.3 H Lymphocytes % 5.7 L Monocytes % 1.2 L Eosinophils % 0.5 Basophils % 0.3 Absolute Neutrophils 6.2 Absolute Lymphocytes 0.4 L Absolute Monocytes 0.1 Absolute Eosinophils 0.0 Absolute Basophils 0.0 Carbonic Acid HCO3/H2CO3 Ratio ABG pH ABG pCO2 ABG pO2 ABG HCO3 ABG O2 Saturation ABG Base Excess VBG pH VBG pCO2 VBG HCO3 VBG Base Excess FiO2 Sodium 141.9 Potassium 4.1 Chloride 103 Carbon Dioxide 25 Anion Gap 14 BUN 13 Creatinine 0.64 Est GFR ( Amer) > 60 Est GFR (Non-Af Amer) > 60 Glucose 164 H Calcium 9.5 Total Bilirubin 0.8 AST 27 ALT 36 Alkaline Phosphatase 82 Ammonia Total Protein 7.3 Albumin 4.4 Urine Color YELLOW Urine Appearance CLEAR Urine pH 5.0 Ur Specific Carriere 1.015 Urine Protein NEGATIVE Urine Glucose (UA) 50 H Urine Ketones TRACE H Urine Blood SMALL H Urine Nitrite NEGATIVE Ur Leukocyte Esterase TRACE H Urine WBC (Auto) 5 Urine RBC (Auto) 0 08/07/17 08/07/17 08/07/17 01:50 01:50 07:41 Creatine Kinase 71 90 CK-MB (CK-2) 4.72 H Troponin I 0.015 08/07/17 07:41 Creatine Kinase CK-MB (CK-2) 6.86 H Troponin I < 0.012 Impressions: Chest X-Ray 08/06/17 19:57 IMPRESSION: Stable radiographic appearance of the chest. No evidence of acute cardiopulmonary abnormality. Assessment & Plan - Diagnosis (1) COPD exacerbation Is this a current diagnosis for this admission?: Yes Plan: Patient will continue IV Solu-Medrol, bronchodilators with DuoNeb, IV antibiotic (2) Acute hypercapnic respiratory failure Is this a current diagnosis for this admission?: Yes Plan: Patient not presently requiring noninvasive ventilation on trach collar (3) Personal history of malignant neoplasm of larynx Is this a current diagnosis for this admission?: Yes Plan: Patient was advised of the need to stop smoking
[2017-08-07] MEDS: ENOXAPARIN SODIUM INJ 40 MG/0.4 ML DISP.SYRIN SUBCUT SCH (14:33)
--- NOTE | 2017-08-07 19:08 | EKG REPORT ---
SEVERITY:- ABNORMAL ECG - SINUS TACHYCARDIA INFERIOR INFARCT, AGE INDETERMINATE CONSIDER POSTERIOR WALL INVOLVEMENT ST DEPRESSION, CONSIDER ISCHEMIA, ANT-LAT LDS : Confirmed by: Mariposa Bansal MD 07-Aug-2017 19:07:35
[2017-08-07] MEDS: ATORVASTATIN CALCIUM 10 MG TABLET PO SCH (21:28)
[2017-08-08] MEDS: METHYLPREDNISOLONE INJ 125 MG/2 ML SDV IV SCH ×3 (05:38→21:10)
[2017-08-08 06:46] LABS: ABSOLUTE LYMPHOCYTES (AUTO) 0.7 10^3/uL (0.5-4.7); ABSOLUTE MONOCYTES (AUTO) 0.4 10^3/uL (0.1-1.4); ABSOLUTE NEUT (AUTO) 6.3 10^3/uL (1.7-8.2); BASOPHILS % (AUTO) 0.3 % (0-2); HEMOGLOBIN 14.8 g/dL (13.5-17.0); LYMPHOCYTES % (AUTO) 8.9 % (13-45); MEAN CORPUSCULAR HEMOGLOBIN 31.4 pg (27.0-33.4); MEAN CORPUSCULAR HGB CONC 34.5 g/dL (32.0-36.0); MEAN CORPUSCULAR VOLUME 91 fl (80-97); MONOCYTES % (AUTO) 5.2 % (3-13); PLATELET COUNT 217 10^3/uL (150-450); RED BLOOD COUNT 4.72 10^6/uL (4.35-5.55); RED CELL DISTRIBUTION WIDTH 13.5 % (11.5-14.0); SEGMENTED NEUTROPHILS % (AUTO) 85.6 % (42-78); TOTAL CELLS COUNTED % (AUTO) 100 %; WHITE BLOOD COUNT 7.4 10^3/uL (4.0-10.5)
[2017-08-08 07:11] LABS: ALANINE AMINOTRANSFERASE 37 U/L (21-72); ALKALINE PHOSPHATASE 65 U/L (38-126); ANION GAP 11 (5-19); ASPARTATE AMINO TRANSFERASE 33 U/L (17-59); BILIRUBIN,DIRECT 0.4 mg/dL (0.0-0.4); BILIRUBIN,TOTAL 0.6 mg/dL (0.2-1.3); BLOOD UREA NITROGEN 15 mg/dL (7-20); CALCIUM 9.6 mg/dL (8.4-10.2); CARBON DIOXIDE 28 mmol/L (22-30); CHLORIDE 104 mmol/L (98-107); GLUCOSE 147 mg/dL (75-110); POTASSIUM 4.6 mmol/L (3.6-5.0); SODIUM 142.6 mmol/L (137-145); TOTAL PROTEIN 6.8 g/dL (6.3-8.2)
[2017-08-08] MEDS: IPRATROPIUM/ALBUTEROL 0.5-2.5 MG/3 ML AMPUL NEB PRN ×3 (08:05→19:46)
--- NOTE | 2017-08-08 08:11 | PDOC PROGRESS REPORT ---
Subjective Progress Note for:: 08/08/17 Subjective:: Patient was admitted because of the COPD acute exacerbation possible pneumonia Patient still continues to smoke Patients feel better but still short of breath when patients move aroundPatient is denied any chest pain denied any shortness of the breathWhile in the sitting and resting conditions Reason For Visit: ACUTE RESPIRATORY ACIDOSIS, COPD EXACERBATION Physical Exam Vital Signs: Temp Pulse Resp BP Pulse Ox 98.2 F 77 16 133/73 H 99 08/08/17 03:40 08/08/17 07:00 08/08/17 03:40 08/08/17 03:40 08/08/17 03:40 Intake & Output 08/07/17 08/08/17 08/09/17 06:59 06:59 06:59 Intake Total 437 1403 Output Total 0 Balance 437 1403 Weight 82.1 kg 82.1 kg General appearance: PRESENT: no acute distress, well-developed, well-nourished Head exam: PRESENT: atraumatic, normocephalic Eye exam: PRESENT: conjunctiva pink, EOMI, PERRLA. ABSENT: scleral icterus Ear exam: PRESENT: normal external ear exam Mouth exam: PRESENT: moist, tongue midline Additional comments: Tracheostomy site is intact Neck exam: PRESENT: full ROM. ABSENT: carotid bruit, JVD, lymphadenopathy, thyromegaly Respiratory exam: PRESENT: decreased breath sounds Cardiovascular exam: PRESENT: RRR. ABSENT: diastolic murmur, rubs, systolic murmur Pulses: PRESENT: normal dorsalis pedis pul, +2 pedal pulses bilateral Vascular exam: PRESENT: normal capillary refill GI/Abdominal exam: PRESENT: normal bowel sounds, soft. ABSENT: distended, guarding, mass, organolmegaly, rebound, tenderness Rectal exam: PRESENT: deferred Extremities exam: ABSENT: pedal edema Musculoskeletal exam: PRESENT: ambulatory Neurological exam: PRESENT: alert, awake, oriented to person, oriented to place , oriented to time, oriented to situation, CN II-XII grossly intact. ABSENT: motor sensory deficit Psychiatric exam: PRESENT: appropriate affect, normal mood. ABSENT: homicidal ideation, suicidal ideation Skin exam: PRESENT: dry, intact, warm. ABSENT: cyanosis, rash Results Laboratory Results: 08/08/17 05:37 08/08/17 05:37 08/08/17 08/08/17 05:37 05:37 WBC 7.4 RBC 4.72 Hgb 14.8 Hct 43.0 MCV 91 MCH 31.4 MCHC 34.5 RDW 13.5 Plt Count 217 Seg Neutrophils % 85.6 H Lymphocytes % 8.9 L Monocytes % 5.2 Eosinophils % 0.0 Basophils % 0.3 Absolute Neutrophils 6.3 Absolute Lymphocytes 0.7 Absolute Monocytes 0.4 Absolute Eosinophils 0.0 Absolute Basophils 0.0 Sodium 142.6 Potassium 4.6 Chloride 104 Carbon Dioxide 28 Anion Gap 11 BUN 15 Creatinine 0.58 Est GFR ( Amer) > 60 Est GFR (Non-Af Amer) > 60 Glucose 147 H Calcium 9.6 Total Bilirubin 0.6 AST 33 ALT 37 Alkaline Phosphatase 65 Total Protein 6.8 Albumin 4.0 08/07/17 08/07/17 08/07/17 01:50 01:50 07:41 Creatine Kinase 71 90 CK-MB (CK-2) 4.72 H Troponin I 0.015 08/07/17 07:41 Creatine Kinase CK-MB (CK-2) 6.86 H Troponin I < 0.012 Impressions: Chest X-Ray 08/06/17 19:57 IMPRESSION: Stable radiographic appearance of the chest. No evidence of acute cardiopulmonary abnormality. Assessment & Plan - Diagnosis (1) Acute hypercapnic respiratory failure Is this a current diagnosis for this admission?: Yes (2) COPD exacerbation Is this a current diagnosis for this admission?: Yes (3) Personal history of malignant neoplasm of larynx Is this a current diagnosis for this admission?: Yes (4) Tracheostomy dependence Is this a current diagnosis for this admission?: Yes (5) Laryngeal cancer Is this a current diagnosis for this admission?: Yes (6) Multifocal pneumonia Is this a current diagnosis for this admission?: Yes - Time Time Spent with patient: 15-24 minutes Medications reviewed and adjusted accordingly: Yes Anticipated discharge: Home Within: Other - Inpatient Certification Medical Necessity: Need Close Monitoring Due to Risk of Patient Decompensation, Need for IV Antibiotics Post Hospital Care: D/C Rn Heart Documentation - Plan Summary Plan Summary: Continues IV antibiotics and reduce the steroid
[2017-08-08] MEDS: ENOXAPARIN SODIUM INJ 40 MG/0.4 ML DISP.SYRIN SUBCUT SCH (09:56)
[2017-08-08] MEDS ORDERED: (PENDING PHARMACY ID) (Tiotropium Bromide [Spiriva Respimat] 1 PUFF) IH SCH (10:00)
[2017-08-08] MEDS ORDERED: (PENDING PHARMACY ID) (Fluticasone/Salmeterol [Advair Hfa 115-21 Mcg Inhaler] 2 PUFF) IH SCH (10:00)
[2017-08-08] MEDS: ATORVASTATIN CALCIUM 10 MG TABLET PO SCH (21:10)
[2017-08-08] MEDS: LEVOFLOXACIN 750 MG/D5W RTU 750 MG/150 ML RTUPB IV SCH (21:10)
[2017-08-09] MEDS: METHYLPREDNISOLONE INJ 125 MG/2 ML SDV IV SCH (05:32)
[2017-08-09 05:44] LABS: ABSOLUTE LYMPHOCYTES (AUTO) 0.6 10^3/uL (0.5-4.7); ABSOLUTE MONOCYTES (AUTO) 0.5 10^3/uL (0.1-1.4); ABSOLUTE NEUT (AUTO) 6.6 10^3/uL (1.7-8.2); BASOPHILS % (AUTO) 0.1 % (0-2); HEMATOCRIT 43.3 % (37.9-51.0); HEMOGLOBIN 15.1 g/dL (13.5-17.0); MEAN CORPUSCULAR HEMOGLOBIN 31.7 pg (27.0-33.4); MEAN CORPUSCULAR HGB CONC 34.9 g/dL (32.0-36.0); MEAN CORPUSCULAR VOLUME 91 fl (80-97); MONOCYTES % (AUTO) 6.2 % (3-13); PLATELET COUNT 216 10^3/uL (150-450); RED BLOOD COUNT 4.78 10^6/uL (4.35-5.55); RED CELL DISTRIBUTION WIDTH 13.5 % (11.5-14.0); SEGMENTED NEUTROPHILS % (AUTO) 85.7 % (42-78); TOTAL CELLS COUNTED % (AUTO) 100 %; WHITE BLOOD COUNT 7.7 10^3/uL (4.0-10.5)
[2017-08-09 06:01] LABS: ALANINE AMINOTRANSFERASE 47 U/L (21-72); ALKALINE PHOSPHATASE 69 U/L (38-126); ANION GAP 9 (5-19); ASPARTATE AMINO TRANSFERASE 38 U/L (17-59); BILIRUBIN,DIRECT 0.3 mg/dL (0.0-0.4); BILIRUBIN,TOTAL 0.4 mg/dL (0.2-1.3); BLOOD UREA NITROGEN 17 mg/dL (7-20); CALCIUM 9.6 mg/dL (8.4-10.2); CARBON DIOXIDE 29 mmol/L (22-30); CHLORIDE 104 mmol/L (98-107); GLUCOSE 139 mg/dL (75-110); POTASSIUM 4.2 mmol/L (3.6-5.0); SODIUM 142.3 mmol/L (137-145); TOTAL PROTEIN 6.6 g/dL (6.3-8.2)
[2017-08-09] MEDS ORDERED: METHYLPREDNISOLONE INJ 125 MG/2 ML SDV IV SCH (07:39)
--- NOTE | 2017-08-09 08:46 | PDOC PROGRESS REPORT ---
Subjective Progress Note for:: 08/09/17 Subjective:: Patient is currently doing well Patient's denied any chest pain denied any shortness of the breath Patient's otherwise denied any other symptoms Reason For Visit: ACUTE RESPIRATORY ACIDOSIS, COPD EXACERBATION Physical Exam Vital Signs: Temp Pulse Resp BP Pulse Ox 98.3 F 65 18 153/69 H 93 08/09/17 07:49 08/09/17 07:49 08/09/17 07:49 08/09/17 07:49 08/09/17 07:49 Intake & Output 08/08/17 08/09/17 08/10/17 06:59 06:59 06:59 Intake Total 1403 1323 Output Total 0 Balance 1403 1323 Weight 82.1 kg 82.7 kg General appearance: PRESENT: no acute distress, well-developed, well-nourished Head exam: PRESENT: atraumatic, normocephalic Eye exam: PRESENT: conjunctiva pink, EOMI, PERRLA. ABSENT: scleral icterus Ear exam: PRESENT: normal external ear exam Mouth exam: PRESENT: moist, tongue midline Neck exam: PRESENT: full ROM. ABSENT: carotid bruit, JVD, lymphadenopathy, thyromegaly Respiratory exam: PRESENT: clear to auscultation jm Cardiovascular exam: PRESENT: RRR. ABSENT: diastolic murmur, rubs, systolic murmur Pulses: PRESENT: normal dorsalis pedis pul, +2 pedal pulses bilateral Vascular exam: PRESENT: normal capillary refill GI/Abdominal exam: PRESENT: normal bowel sounds, soft. ABSENT: distended, guarding, mass, organolmegaly, rebound, tenderness Rectal exam: PRESENT: deferred Musculoskeletal exam: PRESENT: ambulatory Neurological exam: PRESENT: alert, awake, oriented to person, oriented to place , oriented to time, oriented to situation, CN II-XII grossly intact. ABSENT: motor sensory deficit Psychiatric exam: PRESENT: appropriate affect, normal mood. ABSENT: homicidal ideation, suicidal ideation Skin exam: PRESENT: dry, intact, warm. ABSENT: cyanosis, rash Results Laboratory Results: 08/09/17 04:47 08/09/17 04:47 08/09/17 08/09/17 04:47 04:47 WBC 7.7 RBC 4.78 Hgb 15.1 Hct 43.3 MCV 91 MCH 31.7 MCHC 34.9 RDW 13.5 Plt Count 216 Seg Neutrophils % 85.7 H Lymphocytes % 8.0 L Monocytes % 6.2 Eosinophils % 0.0 Basophils % 0.1 Absolute Neutrophils 6.6 Absolute Lymphocytes 0.6 Absolute Monocytes 0.5 Absolute Eosinophils 0.0 Absolute Basophils 0.0 Sodium 142.3 Potassium 4.2 Chloride 104 Carbon Dioxide 29 Anion Gap 9 BUN 17 Creatinine 0.54 Est GFR ( Amer) > 60 Est GFR (Non-Af Amer) > 60 Glucose 139 H Calcium 9.6 Total Bilirubin 0.4 AST 38 ALT 47 Alkaline Phosphatase 69 Total Protein 6.6 Albumin 4.0 08/07/17 06:45 Clean Catch Midstream Urine Culture - Final Mixed Urogenital Lynne 08/07/17 08/07/17 08/07/17 01:50 01:50 07:41 Creatine Kinase 71 90 CK-MB (CK-2) 4.72 H Troponin I 0.015 08/07/17 07:41 Creatine Kinase CK-MB (CK-2) 6.86 H Troponin I < 0.012 Impressions: Chest X-Ray 08/06/17 19:57 IMPRESSION: Stable radiographic appearance of the chest. No evidence of acute cardiopulmonary abnormality. Assessment & Plan - Diagnosis (1) Acute hypercapnic respiratory failure Is this a current diagnosis for this admission?: Yes Plan: Currently doing well (2) COPD exacerbation Is this a current diagnosis for this admission?: Yes Plan: Reduce the IV steroids (3) Personal history of malignant neoplasm of larynx Is this a current diagnosis for this admission?: Yes (4) Tracheostomy dependence Is this a current diagnosis for this admission?: Yes (5) Laryngeal cancer Is this a current diagnosis for this admission?: Yes (6) Multifocal pneumonia Is this a current diagnosis for this admission?: Yes Plan: Will change the Bactrim p.o. - Time Time Spent with patient: 15-24 minutes Medications reviewed and adjusted accordingly: Yes Anticipated discharge: Home Within: within 24 hours - Inpatient Certification Medical Necessity: Need Close Monitoring Due to Risk of Patient Decompensation Post Hospital Care: D/C Assistant Front Desk Manager Documentation - Plan Summary Plan Summary: Patient is currently doing well and very anxious to go home we will try to switch over the n.p.o.
[2017-08-09] MEDS: IPRATROPIUM/ALBUTEROL 0.5-2.5 MG/3 ML AMPUL NEB PRN (09:48)
[2017-08-09] MEDS: ENOXAPARIN SODIUM INJ 40 MG/0.4 ML DISP.SYRIN SUBCUT SCH (09:54)
[2017-08-09] MEDS: SULFAMETHOXAZOLE/TRIMETHOPRIM 800-160 MG TABLET PO SCH ×2 (11:46→21:53)
[2017-08-09] MEDS: METHYLPREDNISOLONE INJ 40 MG/1 ML SDV IV SCH ×2 (15:09→21:54)
[2017-08-09] MEDS: ATORVASTATIN CALCIUM 10 MG TABLET PO SCH (21:53)
[2017-08-09] MEDS ORDERED: LEVOFLOXACIN 750 MG TABLET PO SCH (22:00)
[2017-08-10] MEDS: IPRATROPIUM/ALBUTEROL 0.5-2.5 MG/3 ML AMPUL NEB PRN ×2 (03:59→09:43)
[2017-08-10 05:09] LABS: ABSOLUTE LYMPHOCYTES (AUTO) 0.8 10^3/uL (0.5-4.7); ABSOLUTE MONOCYTES (AUTO) 0.4 10^3/uL (0.1-1.4); ABSOLUTE NEUT (AUTO) 6.3 10^3/uL (1.7-8.2); BASOPHILS % (AUTO) 0.3 % (0-2); HEMATOCRIT 46.3 % (37.9-51.0); HEMOGLOBIN 16.2 g/dL (13.5-17.0); LYMPHOCYTES % (AUTO) 10.5 % (13-45); MEAN CORPUSCULAR HEMOGLOBIN 31.5 pg (27.0-33.4); MEAN CORPUSCULAR HGB CONC 34.9 g/dL (32.0-36.0); MEAN CORPUSCULAR VOLUME 90 fl (80-97); MONOCYTES % (AUTO) 5.4 % (3-13); PLATELET COUNT 250 10^3/uL (150-450); RED BLOOD COUNT 5.13 10^6/uL (4.35-5.55); RED CELL DISTRIBUTION WIDTH 13.6 % (11.5-14.0); SEGMENTED NEUTROPHILS % (AUTO) 83.8 % (42-78); TOTAL CELLS COUNTED % (AUTO) 100 %; WHITE BLOOD COUNT 7.6 10^3/uL (4.0-10.5)
[2017-08-10] MEDS: METHYLPREDNISOLONE INJ 40 MG/1 ML SDV IV SCH (05:23)
[2017-08-10 05:34] LABS: ANION GAP 11 (5-19); BLOOD UREA NITROGEN 19 mg/dL (7-20); CALCIUM 9.6 mg/dL (8.4-10.2); CARBON DIOXIDE 27 mmol/L (22-30); CHLORIDE 104 mmol/L (98-107); GLUCOSE 134 mg/dL (75-110); POTASSIUM 4.6 mmol/L (3.6-5.0); SODIUM 142.1 mmol/L (137-145)
[2017-08-10 05:54] VITALS: BP 148/78
[2017-08-10] MEDS: SULFAMETHOXAZOLE/TRIMETHOPRIM 800-160 MG TABLET PO SCH (10:06)
[2017-08-10] MEDS: ENOXAPARIN SODIUM INJ 40 MG/0.4 ML DISP.SYRIN SUBCUT SCH (10:07)
--- NOTE | 2017-08-10 10:22 | PDOC DISCHARGE SUMMARY ---
General - Admit/Disc Date/PCP Admission Date/Primary Care Provider: 08/06/17 21:13 MANUEL SIMS MD Discharge Date: 08/10/17 - Discharge Diagnosis (1) Acute hypercapnic respiratory failure Is this a current diagnosis for this admission?: Yes Summary: Currently all resolved patients use the oxygen at Home (2) COPD exacerbation Is this a current diagnosis for this admission?: Yes Summary: Currently all resolving (3) Personal history of malignant neoplasm of larynx Is this a current diagnosis for this admission?: Yes Summary: Patient see ENT as an outpatient (4) Tracheostomy dependence Is this a current diagnosis for this admission?: Yes Summary: Patient see ENT (5) Laryngeal cancer Is this a current diagnosis for this admission?: Yes Summary: Currently all stable (6) Multifocal pneumonia Is this a current diagnosis for this admission?: Yes Summary: Continues to antibiotic - Additional Information Discharge Diet: As Tolerated Discharge Activity: Activity As Tolerated Prescriptions: Prednisone 10 mg PO DAILY #20 tablet Sulfamethoxazole/Trimethoprim [Septra-Ds 800-160 mg Tablet] 1 tab PO Q12 #14 tablet Home Medications: Albuterol Sulfate [Albuterol Sulfate 2.5mg/3 mL] 2.5 mg NEB RTBIDP PRN 06/03/17 Albuterol Sulfate [Ventolin Hfa] 2 puff IH Q4HP PRN 06/03/17 Fluticasone/Salmeterol [Advair HFA 115-21 mcg Inhaler] 2 puff IH Q12 06/05/17 Tiotropium [place] [Spiriva Respimat] 1 puff IH Q12 06/05/17 Atorvastatin Calcium [Lipitor 10 mg Tablet] 10 mg PO QHS 08/07/17 Ipratropium [place] [Atrovent 0.02% Neb 0.5 mg/2.5 ml Ampul] 0.5 mg NEB RTBIDP PRN 08/07/17 Prednisone 10 mg PO DAILY #20 tablet 08/10/17 Sulfamethoxazole/Trimethoprim [Septra-Ds 800-160 mg Tablet] 1 tab PO Q12 #14 tablet 08/10/17 History of Present Illness History of Present Illness: KAYODE DUNN is a 72 year old male Patients admitted for the shortness of the breath and COPD acute exacerbations and possible underlying pneumonia and treated with IV antibiotic IV steroid Hospital Course Hospital Course: This is a 72-year-old male's with a significant history of the COPD with a history of the laryngeal cancer status post tracheostomy and is still continues to smoke basically came because of the shortness of breath and patients diagnosed with a COPD acute episode appearance of underlying possible pneumonia patients treated with the IV antibiotic IV steroid and the patient's response very well Patient's p.o. intake is good Patients walk in the hallway without any problems Patient's steroid was all temporal and patients was put on the p.o. medications Patients expressed to go homes and discussed with the family and patients have a good support at [facility] but the patient on a p.o. steroid and p.o. antibiotic and continues to nebulizer and oxygen at [facility] and following a one-week Physical Exam Vital Signs: Temp Pulse Resp BP Pulse Ox 98.1 F 61 16 148/78 H 96 08/10/17 10:08 08/10/17 10:08 08/10/17 10:08 08/10/17 05:21 08/10/17 10:08 Intake & Output 08/09/17 08/10/17 08/11/17 06:59 06:59 06:59 Intake Total 1323 840 Output Total 0 Balance 1323 840 Weight 82.7 kg 83.3 kg General appearance: PRESENT: no acute distress, well-developed, well-nourished Head exam: PRESENT: atraumatic, normocephalic Eye exam: PRESENT: conjunctiva pink, EOMI, PERRLA. ABSENT: scleral icterus Ear exam: PRESENT: normal external ear exam Mouth exam: PRESENT: moist, tongue midline Additional comments: Tracheostomy site intact Neck exam: PRESENT: full ROM. ABSENT: carotid bruit, JVD, lymphadenopathy, thyromegaly Respiratory exam: PRESENT: clear to auscultation jm Cardiovascular exam: PRESENT: RRR. ABSENT: diastolic murmur, rubs, systolic murmur Pulses: PRESENT: normal dorsalis pedis pul, +2 pedal pulses bilateral Vascular exam: PRESENT: normal capillary refill GI/Abdominal exam: PRESENT: normal bowel sounds, soft. ABSENT: distended, guarding, mass, organolmegaly, rebound, tenderness Rectal exam: PRESENT: deferred Extremities exam: ABSENT: pedal edema Musculoskeletal exam: PRESENT: ambulatory Neurological exam: PRESENT: alert, awake, oriented to person, oriented to place , oriented to time, oriented to situation, CN II-XII grossly intact. ABSENT: motor sensory deficit Psychiatric exam: PRESENT: appropriate affect, normal mood. ABSENT: homicidal ideation, suicidal ideation Skin exam: PRESENT: dry, intact, warm. ABSENT: cyanosis, rash Results Laboratory Results: 08/10/17 04:32 08/10/17 04:32 08/10/17 08/10/17 04:32 04:32 WBC 7.6 RBC 5.13 Hgb 16.2 Hct 46.3 MCV 90 MCH 31.5 MCHC 34.9 RDW 13.6 Plt Count 250 Seg Neutrophils % 83.8 H Lymphocytes % 10.5 L Monocytes % 5.4 Eosinophils % 0.0 Basophils % 0.3 Absolute Neutrophils 6.3 Absolute Lymphocytes 0.8 Absolute Monocytes 0.4 Absolute Eosinophils 0.0 Absolute Basophils 0.0 Sodium 142.1 Potassium 4.6 Chloride 104 Carbon Dioxide 27 Anion Gap 11 BUN 19 Creatinine 0.55 Est GFR ( Amer) > 60 Est GFR (Non-Af Amer) > 60 Glucose 134 H Calcium 9.6 08/07/17 08/07/17 08/07/17 01:50 01:50 07:41 Creatine Kinase 71 90 CK-MB (CK-2) 4.72 H Troponin I 0.015 08/07/17 07:41 Creatine Kinase CK-MB (CK-2) 6.86 H Troponin I < 0.012 Impressions: Chest X-Ray 08/06/17 19:57 IMPRESSION: Stable radiographic appearance of the chest. No evidence of acute cardiopulmonary abnormality. Qualifiers - * PATIENT BEING DISCHARGED WITH ANY OF THE FOLLOWING DIAGNOSIS: No VTE patient discharged on overlapping Therapy?: Yes Plan Time Spent: Greater than 30 Minutes - Discharge home with the stable conditions following a one-week
== END 2017-08-10 10:56 | disposition home or self-care (01) | DRG 189 ==
LOC: ER 19:34 → EH 21:13 → 3W 08-07 00:29
PROVIDERS: ADMIT Internal Medicine; ATTEND Family Medicine
DX: J96.02 Acute respiratory failure with hypercapnia (principal); J18.9 Pneumonia, unspecified organism; J44.1 Chronic obstructive pulmonary disease with (acute) exacerbation; I10 Essential (primary) hypertension; F17.210 Nicotine dependence, cigarettes, uncomplicated; Z90.02 Acquired absence of larynx; Z93.0 Tracheostomy status
CPT/HCPCS: 36415; 71045; 80048; 80053; 80076; 80307; 81001; 82140; 82150; 82550; 82553; 82803; 83605; 83690; 83735; 84100; 84439; 84443; 84484; 85025; 85610; 85730; 87040; 87077; 87086; 87186; 93005; 93010; 94640; 96365; 99291; J1650; J1956; J2060; J2920; J2930; J7030; J7620

== ENCOUNTER → 2018-12-29 | Outpatient (CLI) | payer MEDICARE, OTHER ==
--- NOTE | 2018-12-29 14:24 | RADIOLOGY REPORT (SQ) ---
EXAM DESCRIPTION: WRIST RIGHT 3 VIEWS COMPLETED DATE/TIME: 12/29/2018 10:23 am REASON FOR STUDY: RT WRIST PAIN M25.531 PAIN IN RIGHT WRIST COMPARISON: None. NUMBER OF VIEWS: Three views. TECHNIQUE: AP, lateral, and oblique radiographic images acquired of the right wrist. LIMITATIONS: None. FINDINGS: MINERALIZATION: Osteopenia. BONES: There is no fracture. The radiolunate joint is narrowed. On the radiograph the scapholunate interval is less than 3 mm. SOFT TISSUES: There is no soft tissue swelling or radiopaque foreign body OTHER: No other finding. IMPRESSION: Narrowing of the radiolunate joint without definite widening of the scapholunate interva l. Correlate clinically to exclude a scaffold lunate ligament injury. There is no acute fracture. TECHNICAL DOCUMENTATION: JOB ID: [id number] [employer]- All Rights Reserved Reading location - IP/workstation name: [email or web address]
== END ==
LOC: OD 10:10
PROVIDERS: ATTEND Physician Assistant
DX: M25.531 Pain in right wrist (principal)

== ENCOUNTER 2019-03-15 18:07 | Emergency (ER) | payer MEDICARE | END 2019-03-15 19:15 | disposition left against medical advice (07) | LOC: ER 18:07 | DX: Z53.21 Procedure and treatment not carried out due to patient leaving prior to being seen by health care provider (principal) ==

== ENCOUNTER 2019-03-20 16:32 | Inpatient (IN) | payer MEDICARE, OTHER ==
[2019-03-20] MEDS ORDERED: ACETAMINOPHEN 325 MG TABLET PO ONE (16:56)
[2019-03-20] MEDS ORDERED: RINGERS SOLUTION,LACTATED 1,000 ML IV ONE (16:57)
--- NOTE | 2019-03-20 17:00 | ER Document Report ---
ED Medical Screen (RME) - General Chief Complaint: Fever Stated Complaint: FEVER,BODY PAIN Time Seen by Provider: 03/20/19 16:48 Primary Care Provider: HODAN WILBURN PA-C [Primary Care Provider] - Follow up as needed Mode of Arrival: Wheelchair Information source: Patient, Relative Notes: Patient presents complaining of cough for the past 3 to 4 weeks. Patient states that he fell 5 days ago injuring his right side. Patient was seen at [facility] after the fall. Family denies any known rib fractures. Patient has had worsening cough with fever. Patient complains of right sided back and right- sided chest discomfort. hx: Throat cancer with tracheostomy, COPD, aneurysm with repair I have greeted and performed a rapid initial assessment of this patient. A comprehensive ED assessment and evaluation of the patient, analysis of test results and completion of the medical decision making process will be conducted by additional ED providers. TRAVEL OUTSIDE OF THE [place] IN LAST 30 DAYS: No - Related Data Allergies/Adverse Reactions: No Known Allergies Allergy (Verified 03/20/19 16:48) Past Medical History - Past Medical History Cardiac Medical History: Reports: Hx Coronary Artery Disease Denies: Hx Heart Attack, Hx Hypertension Pulmonary Medical History: Reports: Hx Asthma, Hx Bronchitis, Hx COPD Denies: Hx Pneumonia Neurological Medical History: Denies: Hx Cerebrovascular Accident, Hx Seizures Renal/ Medical History: Denies: Hx Peritoneal Dialysis Musculoskeltal Medical History: Denies Hx Arthritis Past Surgical History: Reports: Hx Oral Surgery - laynectomy 2010 - Immunizations Hx Diphtheria, Pertussis, Tetanus Vaccination: Yes Physical Exam - Respiratory Respiratory status: Labored, Tachypnea Chest status: Pain on movement, Pain with cough Breath sounds: Productive cough Doctor's Discharge - Discharge Referrals: HODAN WILBURN PA-C [Primary Care Provider] - Follow up as needed
--- NOTE | 2019-03-20 17:17 | RADIOLOGY REPORT (SQ) ---
EXAM DESCRIPTION: CHEST 2 VIEWS COMPLETED DATE/TIME: 03/20/2019 5:07 pm REASON FOR STUDY: fever, cough, cp COMPARISON: 06/06/2017 EXAM PARAMETERS: NUMBER OF VIEWS: two views TECHNIQUE: Digital Frontal and Lateral radiographic views of the chest acquired. RADIATION DOSE: NA LIMITATIONS: none FINDINGS: LUNGS AND PLEURA: Increased opacification in the left base and posteriorly and inferiorly on the lateral view. MEDIASTINUM AND HILAR STRUCTURES: No masses or contour abnormalities. HEART AND VASCULAR STRUCTURES: Heart normal size. No evidence for failure. BONES: No acute findings. HARDWARE: None in the chest. OTHER: No other significant finding. IMPRESSION: Left lower lobe pneumonia. TECHNICAL DOCUMENTATION: JOB ID: [id number] [employer]- All Rights Reserved Reading location - IP/workstation name: [email or web address]
[2019-03-20] MEDS ORDERED: CEFEPIME 2 GM/D5W RTU 2 GM/50 ML RTUPB IV ONE (17:27)
[2019-03-20 18:14] LABS: ABSOLUTE LYMPHOCYTES (AUTO) 0.9 10^3/uL (0.5-4.7); ABSOLUTE MONOCYTES (AUTO) 0.9 10^3/uL (0.1-1.4); ABSOLUTE NEUT (AUTO) 8.5 10^3/uL (1.7-8.2); BASOPHILS % (AUTO) 0.3 % (0-2); EOSINOPHILS % (AUTO) 0.3 % (0-6); HEMATOCRIT 43.1 % (37.9-51.0); HEMOGLOBIN 15.2 g/dL (13.5-17.0); LYMPHOCYTES % (AUTO) 8.4 % (13-45); MEAN CORPUSCULAR HEMOGLOBIN 32.6 pg (27.0-33.4); MEAN CORPUSCULAR HGB CONC 35.3 g/dL (32.0-36.0); MEAN CORPUSCULAR VOLUME 92 fl (80-97); MONOCYTES % (AUTO) 8.3 % (3-13); PLATELET COUNT 243 10^3/uL (150-450); RED BLOOD COUNT 4.67 10^6/uL (4.35-5.55); RED CELL DISTRIBUTION WIDTH 13.9 % (11.5-14.0); SEGMENTED NEUTROPHILS % (AUTO) 82.7 % (42-78); TOTAL CELLS COUNTED % (AUTO) 100 %; WHITE BLOOD COUNT 10.3 10^3/uL (4.0-10.5)
[2019-03-20 18:29] LABS: BLOOD UREA NITROGEN 16 mg/dL (7-20); CALCIUM 9.5 mg/dL (8.4-10.2); CARBON DIOXIDE 28 mmol/L (22-30); CHLORIDE 96 mmol/L (98-107); GLUCOSE 114 mg/dL (75-110); POTASSIUM 3.8 mmol/L (3.6-5.0)
[2019-03-20 18:30] LABS: ALBUMIN 4.2 g/dL (3.5-5.0); ALKALINE PHOSPHATASE 103 U/L (38-126); ANION GAP 13 (5-19); ASPARTATE AMINO TRANSFERASE 21 U/L (17-59); BILIRUBIN,DIRECT 0.4 mg/dL (0.0-0.4); BILIRUBIN,TOTAL 1.2 mg/dL (0.2-1.3); TOTAL PROTEIN 7.7 g/dL (6.3-8.2)
[2019-03-20] MEDS ORDERED: NORMAL SALINE 1000 ML 1,000 ML IV PRN (18:50)
--- NOTE | 2019-03-20 18:57 | ER Document Report ---
ED Fever - General Chief Complaint: Fever Stated Complaint: FEVER,BODY PAIN Time Seen by Provider: 03/20/19 16:48 Primary Care Provider: HODAN WILBURN PA-C [[facility] [employer]] - Follow up as needed Mode of Arrival: Wheelchair Information source: Patient TRAVEL OUTSIDE OF THE [place] IN LAST 30 DAYS: No - HPI Notes: Patient presents with fever and shortness of breath. Patient states that he was recently discharged from [facility] 3 to 4 days ago. Since that time he has had increasing shortness of breath and weakness with some right-sided pain. The right-sided pain is from a fall he had 3 to 4 days ago. This pain is constant. It is moderate. Is worse with movement. It radiates up and down the right side of his body. Patient has a constant trach due to a history of cancer. He has not appreciated increased secretions from the trach. He has however had a fever. - Related Data Allergies/Adverse Reactions: No Known Allergies Allergy (Verified 03/20/19 16:48) Past Medical History - General Information source: Patient, Relative - Social History Smoking Status: Former Smoker Frequency of alcohol use: None Drug Abuse: None Family History: Reviewed & Not Pertinent Patient has suicidal ideation: No Patient has homicidal ideation: No - Past Medical History Cardiac Medical History: Reports: Hx Coronary Artery Disease Denies: Hx Heart Attack, Hx Hypertension Pulmonary Medical History: Reports: Hx Asthma, Hx Bronchitis, Hx COPD Denies: Hx Pneumonia Neurological Medical History: Denies: Hx Cerebrovascular Accident, Hx Seizures Renal/ Medical History: Denies: Hx Peritoneal Dialysis Musculoskeletal Medical History: Denies Hx Arthritis Past Surgical History: Reports: Hx Oral Surgery - laynectomy 2010 - Immunizations Hx Diphtheria, Pertussis, Tetanus Vaccination: Yes Hx Pneumococcal Vaccination: 02/07/09 Review of Systems - Review of Systems Constitutional: Chills, Fever, Malaise Cardiovascular: Chest pain. denies: Palpitations Respiratory: Cough, Short of breath -: Yes All other systems reviewed and negative Physical Exam - Vital signs Vitals: Resp Pulse Ox 26 H 94 03/20/19 17:19 03/20/19 17:19 Interpretation: Tachypneic, Febrile - General General appearance: Alert - HEENT Head: Normocephalic, Atraumatic Eyes: Normal Pupils: PERRL Neck: Other - Patient has a tracheostomy in place. - Respiratory Respiratory status: No respiratory distress Chest status: Nontender Breath sounds: Rhonchi Chest palpation: Normal - Cardiovascular Rhythm: Regular Heart sounds: Normal auscultation Murmur: No - Abdominal Inspection: Normal Distension: No distension Bowel sounds: Normal Tenderness: Nontender Organomegaly: No organomegaly - Back Back: Normal, Nontender - Extremities General upper extremity: Normal inspection, Nontender, Normal color, Normal ROM, Normal temperature General lower extremity: Normal inspection, Nontender, Normal color, Normal ROM, Normal temperature, Normal weight bearing. No: Cayla's sign - Neurological Neuro grossly intact: Yes Cognition: Normal Orientation: AAOx4 Cornelius Coma Scale Eye Opening: Spontaneous Cornelius Coma Scale Verbal: Oriented Cornelius Coma Scale Motor: Obeys Commands Aggie Coma Scale Total: 15 Speech: Normal Motor strength normal: LUE, RUE, LLE, RLE Sensory: Normal - Psychological Associated symptoms: Normal affect, Normal mood - Skin Skin Temperature: Warm Skin Moisture: Dry Skin Color: Normal Course - Re-evaluation Re-evalutation: 03/20/19 18:56 Patient presents with shortness of breath and fever. Patient has a chronic tracheostomy secondary to cancer. Patient has a pneumonia on x-ray. Patient will be treated with fluids and antibiotics. His lactate is normal. He is not hypotensive or tachycardic. I have discussed the case with the patient's primary physician who will admit the patient. - Vital Signs Vital signs: Temp Pulse Resp BP Pulse Ox 102.0 F H 40 H 155/84 H 96 03/20/19 18:03 03/20/19 18:03 03/20/19 18:03 03/20/19 18:03 - Laboratory Result Diagrams: 03/20/19 17:47 03/20/19 17:47 Laboratory results interpreted by me: 03/20/19 03/20/19 17:47 17:47 Lymph % (Auto) 8.4 L Absolute Neuts (auto) 8.5 H Seg Neutrophils % 82.7 H Sodium 136.8 L Chloride 96 L Glucose 114 H - Diagnostic Test Radiology reviewed: Image reviewed, Reports reviewed - EKG Interpretation by De EKG shows normal: Sinus rhythm Rate: Normal - 90 Rhythm: NSR Cornish/QRS: No: Right axis deviation, Left axis deviation Discharge - Discharge Clinical Impression: Pneumonia Qualifiers: Pneumonia type: due to unspecified organism Laterality: left Lung location: lower lobe of lung Qualified Code(s): J18.9 - Pneumonia, unspecified organism Condition: Fair Disposition: ADMITTED INPATIENT Admitting Provider: [facility] Unit Admitted: IMCU Referrals: HODAN WILBURN PA-C [[facility] [employer]] - Follow up as needed
[2019-03-20 19:01] LABS: A TYPE INFLUENZA AG NEGATIVE (NEGATIVE); B INFLUENZA AG NEGATIVE (NEGATIVE)
[2019-03-20 19:16] LABS: VENOUS BLOOD BASE EXCESS 2.5 mmol/L; VENOUS BLOOD HCO3 27.5 mmol/L (20-32); VENOUS BLOOD PCO2 43.8 mmHg (35-63); VENOUS BLOOD PH 7.42 (7.30-7.42)
[2019-03-20] MEDS ORDERED: LEVOFLOXACIN 750 MG/D5W RTU 750 MG/150 ML RTUPB IV SCH (20:00)
[2019-03-20] MEDS: IPRATROPIUM/ALBUTEROL 0.5-2.5 MG/3 ML AMPUL NEB SCH (20:24)
[2019-03-20 20:51] LABS: APPEARANCE,URINE SLIGHTLY-CLOUDY; BILIRUBIN,URINE NEGATIVE (NEGATIVE); COLOR,URINE AMBER; GLUCOSE, URINE 50 mg/dL (NEGATIVE); KETONES,URINE 20 mg/dL (NEGATIVE); PROTEIN,URINE 100 mg/dL (NEGATIVE); URINE SPECIFIC GRAVITY 1.035
[2019-03-20] MEDS ORDERED: CEFEPIME 2 GM/D5W RTU 50 ML IV SCH (22:00)
[2019-03-20] MEDS: FAMOTIDINE 20 MG TABLET PO SCH (22:13)
[2019-03-20] MEDS: GUAIFENESIN 600 MG TABLET.SA PO SCH (22:14)
--- NOTE | 2019-03-20 22:21 | EKG REPORT ---
SEVERITY:- ABNORMAL ECG - SINUS RHYTHM BORDERLINE INFERIOR Q WAVES PROBABLE ANTEROLATERAL INFARCT, OLD : Confirmed by: Rakesh Luna MD 20-Mar-2019 22:20:52
--- NOTE | 2019-03-21 00:41 | RADIOLOGY REPORT (SQ) ---
EXAM: XR Bilateral Hips With Pelvis When Performed, 2 Views EXAM DATE/TIME: 03/20/2019 7:31 PM CLINICAL HISTORY: The patient is 73 years old and is Male; hip pain TECHNIQUE: 2 views of the bilateral hips with pelvis when performed. COMPARISON: No relevant prior studies available. FINDINGS: BONES/JOINTS: Degenerative changes of the lower lumbar spine. No obvious acute fracture. No dislocation. The bilateral hip joints are well-maintained. SOFT TISSUES: No significant soft tissue abnormalities visualized. IMPRESSION: No acute findings.
[2019-03-21] MEDS: IPRATROPIUM/ALBUTEROL 0.5-2.5 MG/3 ML AMPUL NEB SCH ×6 (00:57→20:31)
[2019-03-21] MEDS ORDERED: INFLUENZA QUAD (6MOS+) 2019-20 VAC 0.5 ML SYR IM ONE (04:53)
[2019-03-21 05:31] LABS: ABSOLUTE EOSINOPHILS # (AUTO) 0.1 10^3/uL (0.0-0.6); ABSOLUTE LYMPHOCYTES (AUTO) 0.9 10^3/uL (0.5-4.7); ABSOLUTE MONOCYTES (AUTO) 0.7 10^3/uL (0.1-1.4); ABSOLUTE NEUT (AUTO) 5.4 10^3/uL (1.7-8.2); BASOPHILS % (AUTO) 0.2 % (0-2); EOSINOPHILS % (AUTO) 0.9 % (0-6); HEMATOCRIT 36.3 % (37.9-51.0); LYMPHOCYTES % (AUTO) 12.7 % (13-45); MEAN CORPUSCULAR HEMOGLOBIN 32.9 pg (27.0-33.4); MEAN CORPUSCULAR HGB CONC 35.9 g/dL (32.0-36.0); MEAN CORPUSCULAR VOLUME 92 fl (80-97); PLATELET COUNT 185 10^3/uL (150-450); RED BLOOD COUNT 3.96 10^6/uL (4.35-5.55); RED CELL DISTRIBUTION WIDTH 13.7 % (11.5-14.0); SEGMENTED NEUTROPHILS % (AUTO) 76.2 % (42-78); TOTAL CELLS COUNTED % (AUTO) 100 %; WHITE BLOOD COUNT 7.1 10^3/uL (4.0-10.5)
[2019-03-21 05:59] LABS: ALBUMIN 3.4 g/dL (3.5-5.0); ALKALINE PHOSPHATASE 80 U/L (38-126); ANION GAP 7 (5-19); ASPARTATE AMINO TRANSFERASE 20 U/L (17-59); BILIRUBIN,DIRECT 0.3 mg/dL (0.0-0.4); BILIRUBIN,TOTAL 1.1 mg/dL (0.2-1.3); BLOOD UREA NITROGEN 13 mg/dL (7-20); CALCIUM 8.6 mg/dL (8.4-10.2); CARBON DIOXIDE 28 mmol/L (22-30); CHLORIDE 100 mmol/L (98-107); CREATINE KINASE 35 U/L (55-170); GLUCOSE 111 mg/dL (75-110); POTASSIUM 3.4 mmol/L (3.6-5.0); TOTAL PROTEIN 6.4 g/dL (6.3-8.2)
[2019-03-21 06:06] LABS: CREATINE KINASE MB 1.83 ng/mL (<4.55)
[2019-03-21 06:12] LABS: TROPONIN I < 0.012 ng/mL
[2019-03-21] MEDS ORDERED: NORMAL SALINE 1000 ML 1,000 ML IV PRN (07:56)
[2019-03-21] MEDS ORDERED: POTASSIUM CHLORIDE 20 MEQ PACKET PO ONE (08:30)
--- NOTE | 2019-03-21 08:35 | PDOC H&P ---
History of Present Illness Admission Date/PCP: 03/20/19 19:09 MANUEL SIMS MD Patient complains of: Fever and not feeling well History of Present Illness: KAYODE DUNN is a 73 year old male This is a 73-year-old male with a history of the COPD history of the throat cancer status post tracheostomy and history of the hypertensions recently have a fall syncopal type [facility] the head and CT of the spine CT of the chest and x-ray all negative Patient's blood work was all stable and echocardiogram was also performed was all stable Patients came yesterday's to the office with the fever was 101 patient was complaining of more cough not feeling well and decided to send to the emergency department initially try to admit directly but there is no bed available in the hospitals and in the emergency department patient is found a left lower lobe pneumonia Start on IV antibiotics when I saw the patient on the floor feeling better no chest pain no short of breath anymore Still having some pain on the right side of the chest with contusion Past Medical History Cardiac Medical History: Reports: Hypertension Denies: Myocardial Infarction Pulmonary Medical History: Reports: Asthma, Bronchitis, Chronic Obstructive Pulmonary Disease (COPD) Denies: Pneumonia Neurological Medical History: Denies: Seizures Malignancy History Note: Throat cancer Musculoskeltal Medical History: Denies: Arthritis Hematology: Denies: Anemia Past Surgical History Past Surgical History: Reports: Other - Tracheostomy Social History Information Source: Patient Smoking Status: Former Smoker Frequency of Alcohol Use: Occasional Hx Recreational Drug Use: No Hx Prescription Drug Abuse: No Family History Family History: Reviewed & Not Pertinent Parental Family History Reviewed: Yes Children Family History Reviewed: Yes Sibling(s) Family History Reviewed.: Yes Medication/Allergy Home Medications: Albuterol Sulfate [Ventolin Hfa 8 gm Mdi (1 Mdi/ER Disp)] 1 puff IH Q6HP PRN 03/20/19 Fluticasone Propion/Salmeterol [Advair HFA 115-21 mcg Inhaler] 2 puff IH BID 03/20/19 Ibuprofen [Motrin 600 mg Tablet] 600 mg PO BIDP PRN 03/20/19 Ipratropium Cope [Atrovent 0.02% Neb 0.5 mg/2.5 ml Ampul] 1 vial IH RTBIDP PRN 03/20/19 Losartan Potassium [Cozaar 50 mg Tablet] 50 mg PO Q12 03/20/19 Tiotropium Cope [Spiriva Respimat] 2 puff IH DAILY 03/20/19 Allergies/Adverse Reactions: No Known Allergies Allergy (Verified 03/20/19 16:48) Review of Systems Constitutional: PRESENT: chills, fever(s), weakness. ABSENT: headache(s), weight gain, weight loss Eyes: ABSENT: visual disturbances Ears: ABSENT: hearing changes Cardiovascular: ABSENT: chest pain, dyspnea on exertion, edema, orthropnea, palpitations Respiratory: PRESENT: cough, dyspnea. ABSENT: hemoptysis Gastrointestinal: ABSENT: abdominal pain, constipation, diarrhea, hematemesis, hematochezia, nausea, vomiting Genitourinary: ABSENT: dysuria, hematuria Musculoskeletal: ABSENT: joint swelling Integumentary: ABSENT: rash, wounds Neurological: ABSENT: abnormal gait, abnormal speech, confusion, dizziness, focal weakness, syncope Psychiatric: ABSENT: anxiety, depression, homidical ideation, suicidal ideation Endocrine: ABSENT: cold intolerance, heat intolerance, menstrual abnormalities, polydipsia, polyuria Hematologic/Lymphatic: ABSENT: easy bleeding, easy bruising, lymphadenopathy Physical Exam Vital Signs: Temp Pulse Resp BP Pulse Ox 99.6 F 82 18 110/80 90 L 03/21/19 07:19 03/21/19 08:02 03/21/19 08:02 03/21/19 07:19 03/21/19 08:02 Intake & Output 03/20/19 03/21/19 03/22/19 06:59 06:59 06:59 Intake Total 1050 Balance 1050 Weight 87.6 kg General appearance: PRESENT: no acute distress, well-developed, well-nourished Head exam: PRESENT: atraumatic, normocephalic Eye exam: PRESENT: conjunctiva pink, EOMI, PERRLA. ABSENT: scleral icterus Ear exam: PRESENT: normal external ear exam Mouth exam: PRESENT: moist, tongue midline Additional comments: Tracheostomy status intact Neck exam: PRESENT: full ROM. ABSENT: carotid bruit, JVD, lymphadenopathy, thyromegaly Respiratory exam: PRESENT: decreased breath sounds Cardiovascular exam: PRESENT: RRR. ABSENT: diastolic murmur, rubs, systolic murmur Pulses: PRESENT: normal dorsalis pedis pul, +2 pedal pulses bilateral Vascular exam: PRESENT: normal capillary refill GI/Abdominal exam: PRESENT: normal bowel sounds, soft. ABSENT: distended, guarding, mass, organolmegaly, rebound, tenderness Rectal exam: PRESENT: deferred Musculoskeletal exam: PRESENT: ambulatory Neurological exam: PRESENT: alert, awake, oriented to person, oriented to place, oriented to time, oriented to situation, CN II-XII grossly intact. ABSENT: motor sensory deficit Psychiatric exam: PRESENT: appropriate affect, normal mood. ABSENT: homicidal ideation, suicidal ideation Skin exam: PRESENT: dry, intact, warm. ABSENT: cyanosis, rash Results Laboratory Results: 03/21/19 05:00 03/21/19 05:00 03/20/19 03/20/19 03/20/19 17:47 17:47 17:47 WBC 10.3 RBC 4.67 Hgb 15.2 Hct 43.1 MCV 92 MCH 32.6 MCHC 35.3 RDW 13.9 Plt Count 243 Seg Neutrophils % 82.7 H VBG pH VBG pCO2 VBG HCO3 VBG Base Excess Sodium 136.8 L Potassium 3.8 Chloride 96 L Carbon Dioxide 28 Anion Gap 13 BUN 16 Creatinine 0.67 Est GFR ( Amer) > 60 Glucose 114 H Lactic Acid 1.4 Calcium 9.5 Total Bilirubin 1.2 AST 21 Alkaline Phosphatase 103 Total Protein 7.7 Albumin 4.2 Urine Color Urine Appearance Urine pH Ur Specific [place] Urine Protein Urine Glucose (UA) Urine Ketones Urine Blood Urine RBC (Auto) 03/20/19 03/20/19 03/20/19 19:05 20:27 21:05 WBC RBC Hgb Hct MCV MCH MCHC RDW Plt Count Seg Neutrophils % VBG pH 7.42 VBG pCO2 43.8 VBG HCO3 27.5 VBG Base Excess 2.5 Sodium Potassium Chloride Carbon Dioxide Anion Gap BUN Creatinine Est GFR ( Amer) Glucose Lactic Acid 1.2 Calcium Total Bilirubin AST Alkaline Phosphatase Total Protein Albumin Urine Color ROMERO Urine Appearance SLIGHTLY-CLOUDY Urine pH 5.0 Ur Specific [place] 1.035 Urine Protein 100 H Urine Glucose (UA) 50 H Urine Ketones 20 H Urine Blood SMALL H Urine RBC (Auto) 7 03/21/19 03/21/19 03/21/19 00:24 05:00 05:00 WBC 7.1 RBC 3.96 L Hgb 13.0 L D Hct 36.3 L MCV 92 MCH 32.9 MCHC 35.9 RDW 13.7 Plt Count 185 Seg Neutrophils % 76.2 VBG pH VBG pCO2 VBG HCO3 VBG Base Excess Sodium 134.7 L Potassium 3.4 L Chloride 100 Carbon Dioxide 28 Anion Gap 7 BUN 13 Creatinine 0.50 L Est GFR ( Amer) > 60 Glucose 111 H Lactic Acid 1.2 Calcium 8.6 Total Bilirubin 1.1 AST 20 Alkaline Phosphatase 80 Total Protein 6.4 Albumin 3.4 L Urine Color Urine Appearance Urine pH Ur Specific [place] Urine Protein Urine Glucose (UA) Urine Ketones Urine Blood Urine RBC (Auto) 03/21/19 05:00 WBC RBC Hgb Hct MCV MCH MCHC RDW Plt Count Seg Neutrophils % VBG pH VBG pCO2 VBG HCO3 VBG Base Excess Sodium Potassium Chloride Carbon Dioxide Anion Gap BUN Creatinine Est GFR ( Amer) Glucose Lactic Acid 0.9 Calcium Total Bilirubin AST Alkaline Phosphatase Total Protein Albumin Urine Color Urine Appearance Urine pH Ur Specific [place] Urine Protein Urine Glucose (UA) Urine Ketones Urine Blood Urine RBC (Auto) 03/20/19 03/21/19 03/21/19 17:47 05:00 05:00 Creatine Kinase 35 L CK-MB (CK-2) 1.83 Troponin I < 0.012 < 0.012 Impressions: Hip X-Ray 03/20/19 00:00 IMPRESSION: No acute findings. Chest X-Ray 03/20/19 16:57 IMPRESSION: Left lower lobe pneumonia. Assessment & Plan - Diagnosis (1) Pneumonia Qualifiers: Pneumonia type: due to unspecified organism Laterality: left Lung location: lower lobe of lung Qualified Code(s): J18.9 - Pneumonia, unspecified organism Is this a current diagnosis for this admission?: Yes Plan: Continues the IV antibiotics (2) COPD (chronic obstructive pulmonary disease) Qualifiers: COPD type: unspecified COPD Qualified Code(s): J44.9 - Chronic obstructive pulmonary disease, unspecified Is this a current diagnosis for this admission?: Yes Plan: Continues to nebulizer treatments (3) Laryngeal cancer Is this a current diagnosis for this admission?: Yes Plan: Status post surgery currently on tracheostomy (4) Tracheostomy dependence Is this a current diagnosis for this admission?: Yes Plan: Due to the above conditions (5) Syncopal episodes Qualifiers: Syncope type: unspecified Qualified Code(s): R55 - Syncope and collapse Is this a current diagnosis for this admission?: Yes Plan: Patient recently admitting in the [facility] with the all the imaging study was negative's echocardiogram was all stable's patients probably need a outpatient Holter monitor and will do the carotid Dopplers - Time Time Spent: 30 to 50 Minutes Medications reviewed and adjusted accordingly: Yes Anticipated discharge: Home Within: Other - Inpatient Certification Based on my medical assessment, after consideration of the patient's comorbidities, presenting symptoms, or acuity I expect that the services needed warrant INPATIENT care.: Yes I certify that my determination is in accordance with my understanding of Medicare's requirements for reasonable and necessary INPATIENT services [42 CFR 412.3e].: Yes Medical Necessity: Failure to Improve With Outpatient Therapy, Significant Comorbidiites Make Outpatient Treatment Too Risky, Need For IV Fluids, Need for IV Antibiotics Post Hospital Care: D/C [facility] Documentation - Plan Summary Plan Summary: Admit the patient's in the IMCU for the pneumonia protocol Discuss with the patient and the daughter regarding the patient's current conditions
[2019-03-21] MEDS: LEVOFLOXACIN 500 MG/D5W RTU 500 MG/100 ML RTUPB IV SCH (09:15)
[2019-03-21] MEDS: ENOXAPARIN SODIUM INJ 40 MG/0.4 ML DISP.SYRIN SUBCUT SCH (09:16)
[2019-03-21] MEDS: GUAIFENESIN 600 MG TABLET.SA PO SCH ×2 (09:16→21:37)
[2019-03-21] MEDS: OXYCODONE-ACETAMINOPHEN 5-325 MG TABLET PO PRN (09:17)
[2019-03-21] MEDS: FAMOTIDINE 20 MG TABLET PO SCH ×2 (09:18→21:37)
[2019-03-21] MEDS: CEFEPIME HCL 2 GM in DEXTROSE 5%-WATER 50 ML IV SCH ×2 (09:53→21:37)
[2019-03-21] MEDS ORDERED: LEVOFLOXACIN 750 MG/D5W RTU 750 MG/150 ML RTUPB IV SCH (10:00)
[2019-03-21] MEDS ORDERED: CEFEPIME 2 GM/D5W RTU 2 GM/50 ML RTUPB IV SCH (10:00)
--- NOTE | 2019-03-21 19:43 | PDOC CONSULTATION ---
Consultation-Blank Consultation: CARDIOLOGY consultation by Dr. Mariposa Bansal on 03/21/2019. Patient seen at 9 AM. 60 minutes spent on the patient with more than 50% of time spent in direct patient care. REASON FOR CONSULTATION: History of syncope. Cardiological evaluation. CONSULT REQUESTING PHYSICIAN: Dr. Cassidy: HISTORY OF PRESENT ILLNESS:: The patient was admitted by Dr. Cassidy for history of fever and the patient was found to have left lower lobe pneumonia. The patient gives a history that the previously short time before the patient was admitted to [facility] for history of syncope. The patient states he got up and walked and became syncopal. He had a work-up with [facility] and as per patient his carotids, head CT, and his echocardiogram were all negative. He stated that they did not find anything wrong cardiac parrish that could have caused the syncope. But the patient has not had a stress test or a 30-day event monitor. We are awaiting records from [facility]. The patient does complain of cough and slightly increased shortness of breath. There is no PND or orthopnea. The patient has a history of COPD hypertension and history of throat cancer status post tracheostomy. The patient able to talk with his closing the tracheostomy small stoma. There is no signs of infection of the ostomies cystoma. He denies any chest pain discomfort. There is no history of seizures. The patient during the and prior to the syncopal episode had no shortness of breath or or while palpitations or chest pain or discomfort. He denies history of coronary artery disease. He denies any palpitations.. There is no prior history of syncope and there is the first syncopal episode. Past Medical History Cardiac Medical History: Reports: Hypertension Denies: Myocardial Infarction Pulmonary Medical History: Reports: Asthma, Bronchitis, Chronic Obstructive Pulmonary Disease (COPD) Denies: Pneumonia Neurological Medical History: Denies: Seizures Malignancy History Note: Throat cancer Musculoskeltal Medical History: Denies: Arthritis Hematology: Denies: Anemia. RESUSCITATION STATUS: The patient is a full code. His daughter is her surrogate healthcare decision maker. Past Surgical History Past Surgical History: Reports: Other - Tracheostomy Social History Information Source: Patient Smoking Status: Former Smoker Frequency of Alcohol Use: Occasional Hx Recreational Drug Use: No Hx Prescription Drug Abuse: No Family History Family History: Reviewed & Not Pertinent Parental Family History Reviewed: Yes Children Family History Reviewed: Yes Sibling(s) Family History Reviewed.: Yes Medication/Allergy Home Medications: Albuterol Sulfate [Ventolin Hfa 8 gm Mdi (1 Mdi/ER Disp)] 1 puff IH Q6HP PRN 03/20/19 Fluticasone Propion/Salmeterol [Advair HFA 115-21 mcg Inhaler] 2 puff IH BID 03/20/19 Ibuprofen [Motrin 600 mg Tablet] 600 mg PO BIDP PRN 03/20/19 Ipratropium [place] [Atrovent 0.02% Neb 0.5 mg/2.5 ml Ampul] 1 vial IH RTBIDP MS N 03/20/19 Losartan Potassium [Cozaar 50 mg Tablet] 50 mg PO Q12 03/20/19 Tiotropium [place] [Spiriva Respimat] 2 puff IH DAILY 03/20/19 Allergies/Adverse Reactions: No Known Allergies Allergy (Verified 03/20/19 16:48) Current Medications Acetaminophen (Tylenol 325 Mg Tablet) 650 mg PO Q4HP PRN PRN Reason: pain or temp greater than 101F Stop: 04/19/19 18:49 Albuterol/Ipratropium (Duoneb 3 Ml Ampul) 3 ml NEB RTQ4 LORENA Stop: 04/19/19 19:59 Last Admin: 03/21/19 20:31 Dose: 3 ml Documented by: Enoxaparin Sodium (Lovenox Inj 40 Mg/0.4 Ml Disp.Syrin) 40 mg SUBCUT DAILY LORENA Stop: 04/20/19 09:59 Last Admin: 03/21/19 09:16 Dose: 40 mg Documented by: Famotidine (Pepcid 20 Mg Tablet) 20 mg PO Q12 LORENA Stop: 04/19/19 21:59 Last Admin: 03/21/19 21:37 Dose: 20 mg Documented by: Guaifenesin (Mucinex Sr 600 Mg Tablet.Sa) 600 mg PO Q12 LORENA Stop: 04/19/19 21:59 Last Admin: 03/21/19 21:37 Dose: 600 mg Documented by: Levofloxacin/Dextrose (Levaquin Rtu 500mg/D5w 100 Ml Premix) 500 mg in 100 mls @ 100 mls/hr IV DAILY [facility] Stop: 03/28/19 09:59 Last Infusion: 03/21/19 10:15 Dose: Infused Documented by: Cefepime HCl 2 gm/ Dextrose 50 mls @ 100 mls/hr IV Q12 LORENA Stop: 03/28/19 09:59 Last Admin: 03/21/19 21:37 Dose: 100 mls/hr, 100 mls/hr Documented by: Sodium Chloride (Nacl 0.9% 1000 Ml Iv Soln) 1,000 mls @ 60 mls/hr IV CONTINUOUS PRN PRN Reason: THIS MED IS NOT "PRN" Stop: 04/19/19 18:49 Last Admin: 03/21/19 21:47 Dose: 60 mls/hr Documented by: Oxycodone/Acetaminophen (Percocet 5-325 Mg Tablet) 1 tab PO Q6HP PRN PRN Reason: FOR PAIN Stop: 03/27/19 18:58 Last Admin: 03/21/19 09:17 Dose: 1 tab Documented by: Sodium Chloride (Saline Flush 2.5 Ml Monoject Prefil Syrin) 2.5 ml IV Q8 LORENA Stop: 04/19/19 21:59 Last Admin: 03/21/19 21:37 Dose: 2.5 ml Documented by: Discontinued Medications Acetaminophen (Tylenol 325 Mg Tablet) 975 mg PO NOW ONE Stop: 03/20/19 16:57 Last Admin: 03/20/19 17:56 Dose: 975 mg Documented by: Lactated Ringer's (Lactated Ringers 1000 Ml Iv Soln) 1,000 mls @ 0 mls/hr IV BOLUS ONE Stop: 03/20/19 16:58 Last Infusion: 03/20/19 19:34 Dose: Infused Documented by: Cefepime HCl (Maxipime Rtu 2 Gm-D5w 50 Ml Premix Bag) 2 gm in 50 mls @ 100 mls/hr IV NOW ONE Stop: 03/20/19 17:56 Last Infusion: 03/20/19 18:42 Dose: Infused Documented by: Sodium Chloride (Nacl 0.9% 1000 Ml Iv Soln) 1,000 mls @ 75 mls/hr IV CONTINUOUS PRN PRN Reason: THIS MED IS NOT "PRN" Stop: 04/19/19 18:49 Last Infusion: 03/21/19 14:19 Dose: Infused Documented by: Levofloxacin/Dextrose (Levaquin Rtu 750 Mg/D5w 150 Ml Premix) 750 mg in 150 mls @ 100 mls/hr IV Q2D LORENA Stop: 03/27/19 19:59 Influenza Virus Vaccine Quadrival (Flulaval Quad Vac 0.5 Ml Syr) 0.5 ml IM .ONCE ONE Stop: 03/21/19 04:54 Potassium Chloride (Potassium Chloride 20 Meq Packet) 40 meq PO NOW ONE Stop: 03/21/19 08:31 Last Admin: 03/21/19 08:27 Dose: 40 meq Documented by: Review of Systems Constitutional: PRESENT: chills, fever(s), weakness. ABSENT: headache(s), weight gain, weight loss Eyes: ABSENT: visual disturbances Ears: ABSENT: hearing changes Cardiovascular: ABSENT: chest pain, dyspnea on exertion, edema, orthropnea, palpitations Respiratory: PRESENT: cough, dyspnea. ABSENT: hemoptysis Gastrointestinal: ABSENT: abdominal pain, constipation, diarrhea, hematemesis, hematochezia, nausea, vomiting Genitourinary: ABSENT: dysuria, hematuria Musculoskeletal: ABSENT: joint swelling Integumentary: ABSENT: rash, wounds Neurological: ABSENT: abnormal gait, abnormal speech, confusion, dizziness, focal weakness, syncope Psychiatric: ABSENT: anxiety, depression, homidical ideation, suicidal ideation Endocrine: ABSENT: cold intolerance, heat intolerance, menstrual abnormalities, polydipsia, polyuria Hematologic/Lymphatic: ABSENT: easy bleeding, easy bruising, lymphadenopathy PHYSICAL EXAMINATION: The patient's frail build. But in no acute distress. Selected Entries 03/21/19 03/21/19 11:25 11:44 Temperature 98.2 F Temperature Oral Source Pulse Rate 72 Respiratory 18 Rate Blood Pressure 121/66 Blood Pressure 84 Mean BP Location Left Arm BP Position Sitting O2 Sat by Pulse 99 Oximetry Fraction of 21 Inspired Oxygen (FIO2) Oxygen Delivery Room Air Method HEAD: Is atraumatic normocephalic. EYES: Pupils are equal round regular reactive light accommodation. Extraocular movements are normal. There is no conjunctival pallor. There is no scleral icterus. EARS: Tympanic membranes are intact. External auditory canals are clear. NOSE: There is no deviated nasal septum. There is no inflammation nasal mucous membrane. MOUTH: Mucous membranes of mouth are moist. Tongue is moist. There is no ulcers. There is no bleeding from the gums. THROAT: There is no redness of the oropharynx. There is no exudates. The patient patient has a tracheostomy stoma which is clean and without signs of any infection. NECK: Is supple. There is no JVD. Carotids are equal there is no bruit there is no lymphadenopathy. There is no accessory muscle respiration use. There is no goiter. Trachea central. SKIN: There is no skin rashes. There is no skin lesions. There is no petechia or ecchymosis. LUNGS: There is diminished air entry prolonged expiration. There is a few dry crackles in the left base. There is hyperresonance on percussion. HEART: S1-S2 is heard. There is no S3 gallop. There is no S4 gallop. There is systolic murmur left sternal border and the apex there is no rub. ABDOMEN: Soft. Nontender. There is no hepatosplenomegaly bowel sounds well heard. EXTREMITIES: Femorals is well felt. There is no femoral bruits. There is no leg edema there is no pedal edema. There is no DVT or cellulitis. There is no calf tenderness. There is no cyanosis or clubbing. VENOUS: The patient is conscious awake alert oriented x3 with no focal deficits. PSYCHIATRIC: Patient judgment insight are intact his affect is normal. Labs- Entire Visit 03/20/19 03/20/19 03/20/19 17:47 17:47 17:47 WBC 10.3 RBC 4.67 Hgb 15.2 Hct 43.1 MCV 92 MCH 32.6 MCHC 35.3 RDW 13.9 Plt Count 243 Lymph % (Auto) 8.4 L [place] % (Auto) 8.3 Eos % (Auto) 0.3 Baso % (Auto) 0.3 Absolute Neuts (auto) 8.5 H Absolute Lymphs (auto) 0.9 Absolute Monos (auto) 0.9 Absolute Eos (auto) 0.0 Absolute Basos (auto) 0.0 Seg Neutrophils % 82.7 H VBG pH VBG pCO2 VBG HCO3 VBG Base Excess Sodium 136.8 L Potassium 3.8 Chloride 96 L Carbon Dioxide 28 Anion Gap 13 BUN 16 Creatinine 0.67 Est GFR ( Amer) > 60 Est GFR (MDRD) Non-Af > 60 Glucose 114 H Lactic Acid Calcium 9.5 Total Bilirubin 1.2 Direct Bilirubin 0.4 Neonat Total Bilirubin Not Reportable Neonat Direct Bilirubin Not Reportable Neonat Indirect Bili Not Reportable AST 21 ALT 23 Alkaline Phosphatase 103 Creatine Kinase CK-MB (CK-2) Troponin I < 0.012 Total Protein 7.7 Albumin 4.2 Urine Color Urine Appearance Urine pH Ur Specific [place] Urine Protein Urine Glucose (UA) Urine Ketones Urine Blood Urine Nitrite (Reflex) Urine Bilirubin Urine Urobilinogen Leukocyte Esterase Rfl Urine RBC (Auto) Urine WBC (Reflex) Squamous Epi Cells Auto Urine Mucus (Auto) Urine Ascorbic Acid Influenza A (Rapid) Influenza B (Rapid) 03/20/19 03/20/19 03/20/19 17:47 18:00 19:05 WBC RBC Hgb Hct MCV MCH MCHC RDW Plt Count Lymph % (Auto) [place] % (Auto) Eos % (Auto) Baso % (Auto) Absolute Neuts (auto) Absolute Lymphs (auto) Absolute Monos (auto) Absolute Eos (auto) Absolute Basos (auto) Seg Neutrophils % VBG pH 7.42 VBG pCO2 43.8 VBG HCO3 27.5 VBG Base Excess 2.5 Sodium Potassium Chloride Carbon Dioxide Anion Gap BUN Creatinine Est GFR ( Amer) Est GFR (MDRD) Non-Af Glucose Lactic Acid 1.4 Calcium Total Bilirubin Direct Bilirubin Neonat Total Bilirubin Neonat Direct Bilirubin Neonat Indirect Bili AST ALT Alkaline Phosphatase Creatine Kinase CK-MB (CK-2) Troponin I Total Protein Albumin Urine Color Urine Appearance Urine pH Ur Specific [place] Urine Protein Urine Glucose (UA) Urine Ketones Urine Blood Urine Nitrite (Reflex) Urine Bilirubin Urine Urobilinogen Leukocyte Esterase Rfl Urine RBC (Auto) Urine WBC (Reflex) Squamous Epi Cells Auto Urine Mucus (Auto) Urine Ascorbic Acid Influenza A (Rapid) NEGATIVE Influenza B (Rapid) NEGATIVE 03/20/19 03/20/19 03/21/19 20:27 21:05 00:24 WBC RBC Hgb Hct MCV MCH MCHC RDW Plt Count Lymph % (Auto) [place] % (Auto) Eos % (Auto) Baso % (Auto) Absolute Neuts (auto) Absolute Lymphs (auto) Absolute Monos (auto) Absolute Eos (auto) Absolute Basos (auto) Seg Neutrophils % VBG pH VBG pCO2 VBG HCO3 VBG Base Excess Sodium Potassium Chloride Carbon Dioxide Anion Gap BUN Creatinine Est GFR ( Amer) Est GFR (MDRD) Non-Af Glucose Lactic Acid 1.2 1.2 Calcium Total Bilirubin Direct Bilirubin Neonat Total Bilirubin Neonat Direct Bilirubin Neonat Indirect Bili AST ALT Alkaline Phosphatase Creatine Kinase CK-MB (CK-2) Troponin I Total Protein Albumin Urine Color ROMERO Urine Appearance SLIGHTLY-CLOUDY Urine pH 5.0 Ur Specific [place] 1.035 Urine Protein 100 H Urine Glucose (UA) 50 H Urine Ketones 20 H Urine Blood SMALL H Urine Nitrite (Reflex) NEGATIVE Urine Bilirubin NEGATIVE Urine Urobilinogen 4.0 H Leukocyte Esterase Rfl NEGATIVE Urine RBC (Auto) 7 Urine WBC (Reflex) 4 Squamous Epi Cells Auto 1 Urine Mucus (Auto) MANY Urine Ascorbic Acid NEGATIVE Influenza A (Rapid) Influenza B (Rapid) 03/21/19 03/21/19 03/21/19 05:00 05:00 05:00 WBC 7.1 RBC 3.96 L Hgb 13.0 L D Hct 36.3 L MCV 92 MCH 32.9 MCHC 35.9 RDW 13.7 Plt Count 185 Lymph % (Auto) 12.7 L [place] % (Auto) 10.0 Eos % (Auto) 0.9 Baso % (Auto) 0.2 Absolute Neuts (auto) 5.4 Absolute Lymphs (auto) 0.9 Absolute Monos (auto) 0.7 Absolute Eos (auto) 0.1 Absolute Basos (auto) 0.0 Seg Neutrophils % 76.2 VBG pH VBG pCO2 VBG HCO3 VBG Base Excess Sodium 134.7 L Potassium 3.4 L Chloride 100 Carbon Dioxide 28 Anion Gap 7 BUN 13 Creatinine 0.50 L Est GFR ( Amer) > 60 Est GFR (MDRD) Non-Af > 60 Glucose 111 H Lactic Acid Calcium 8.6 Total Bilirubin 1.1 Direct Bilirubin 0.3 Neonat Total Bilirubin Not Reportable Neonat Direct Bilirubin Not Reportable Neonat Indirect Bili Not Reportable AST 20 ALT 19 Alkaline Phosphatase 80 Creatine Kinase 35 L CK-MB (CK-2) 1.83 Troponin I < 0.012 Total Protein 6.4 Albumin 3.4 L Urine Color Urine Appearance Urine pH Ur Specific [place] Urine Protein Urine Glucose (UA) Urine Ketones Urine Blood Urine Nitrite (Reflex) Urine Bilirubin Urine Urobilinogen Leukocyte Esterase Rfl Urine RBC (Auto) Urine WBC (Reflex) Squamous Epi Cells Auto Urine Mucus (Auto) Urine Ascorbic Acid Influenza A (Rapid) Influenza B (Rapid) 03/21/19 05:00 WBC RBC Hgb Hct MCV MCH MCHC RDW Plt Count Lymph % (Auto) [place] % (Auto) Eos % (Auto) Baso % (Auto) Absolute Neuts (auto) Absolute Lymphs (auto) Absolute Monos (auto) Absolute Eos (auto) Absolute Basos (auto) Seg Neutrophils % VBG pH VBG pCO2 VBG HCO3 VBG Base Excess Sodium Potassium Chloride Carbon Dioxide Anion Gap BUN Creatinine Est GFR ( Amer) Est GFR (MDRD) Non-Af Glucose Lactic Acid 0.9 Calcium Total Bilirubin Direct Bilirubin Neonat Total Bilirubin Neonat Direct Bilirubin Neonat Indirect Bili AST ALT Alkaline Phosphatase Creatine Kinase CK-MB (CK-2) Troponin I Total Protein Albumin Urine Color Urine Appearance Urine pH Ur Specific [place] Urine Protein Urine Glucose (UA) Urine Ketones Urine Blood Urine Nitrite (Reflex) Urine Bilirubin Urine Urobilinogen Leukocyte Esterase Rfl Urine RBC (Auto) Urine WBC (Reflex) Squamous Epi Cells Auto Urine Mucus (Auto) Urine Ascorbic Acid Influenza A (Rapid) Influenza B (Rapid) Hip X-Ray 03/20/19 00:00 IMPRESSION: No acute findings. Chest X-Ray 03/20/19 16:57 IMPRESSION: Left lower lobe pneumonia. EKG: Interpreted by me self shows sinus rhythm. No acute changes. IMPRESSION/RECOMMENDATION: 1. History of syncope: Etiology not clear. Await records from [facility]. The patient most likely will require a 30-day event monitor. 2. Lower lobe pneumonia: Continue antibiotics. 3. History of chronic obstructive pulmonary disease: No acute exacerbation. Continue current treatment. 4. History of hypertension: Blood pressure well controlled. 5. History of throat cancer status post tracheostomy: Patient claims that there is no recurrence of the throat cancer. Medications reviewed. Medical regimen and management plan and future diagnostics tests discussed with Dr. Cassidy medical decision making is of moderate to high complexity. 60 minutes spent as patient more than 50% time spent in direct patient care. Will follow.
--- NOTE | 2019-03-22 00:39 | RADIOLOGY REPORT (SQ) ---
EXAM: US Duplex Bilateral Extracranial Arteries EXAM DATE/TIME: 03/21/2019 7:41 PM CLINICAL HISTORY: The patient is 73 years old and is Male; syncopal episode TECHNIQUE: Real-time duplex ultrasound scan of the extracranial arteries integrating B-mode two-dimensional vascular structure, Doppler spectral analysis and color flow Doppler imaging. COMPARISON: No relevant prior studies available. FINDINGS: RIGHT COMMON CAROTID ARTERY: Velocity in the distal aspect of the right common carotid artery is 70 cm/s. Small amount of shadowing plaque noted in the distal aspect. RIGHT INTERNAL CAROTID ARTERY: Velocity in the proximal aspect of the right internal carotid artery is 37 cm/s. Velocity in the distal right internal carotid artery is 91 cm/s. Small amount of shadowing plaque noted in the proximal aspect. RIGHT EXTERNAL CAROTID ARTERY: Velocity in the right external carotid artery is 102 cm/s. Small amount of soft plaque in the proximal aspect. RIGHT VERTEBRAL ARTERY: Velocity in the right vertebral artery is 70 cm/s with antegrade flow. RIGHT ICA/CCA RATIO: Right ICA/CCA ratio is 1.3. LEFT COMMON CAROTID ARTERY: Velocity in the distal aspect of the left common carotid artery is 87 cm/s. LEFT INTERNAL CAROTID ARTERY: Velocities in the left internal carotid artery measure 61 cm/s proximally and 108 cm/s distally. Small amount of soft plaque. LEFT EXTERNAL CAROTID ARTERY: Left external carotid artery velocity is 93 cm/s. LEFT VERTEBRAL ARTERY: Velocity in the left vertebral artery 62 cm/s with antegrade flow. LEFT ICA/CCA RATIO: Left ICA/CCA ratio is 1.2. LYMPH NODES: No lymphadenopathy identified on the available images. CAROTID STENOSIS REFERENCE USING SRU CRITERIA: Mild - <50% stenosis. ICA PSV is less than 125 cm/second and plaque or intimal thickening is visible. Moderate - 50-69% stenosis. ICA PSV is 125 to 230 cm/second and plaque is visible. Severe - 70-94% stenosis. ICA PSV is more than 230 cm/second and visible plaque with lumen narrowing is seen. Near occlusion - 95-99% stenosis. ICA PSV is variable and significant plaque with luminal narrowing is seen. Occluded - 100% stenosis. No flow identified. IMPRESSION: Findings compatible with less than 50% stenosis of the bilateral internal carotid arteries.
[2019-03-22] MEDS: IPRATROPIUM/ALBUTEROL 0.5-2.5 MG/3 ML AMPUL NEB SCH ×6 (02:04→19:51)
[2019-03-22 05:00] LABS: ABSOLUTE EOSINOPHILS # (AUTO) 0.2 10^3/uL (0.0-0.6); ABSOLUTE LYMPHOCYTES (AUTO) 0.8 10^3/uL (0.5-4.7); ABSOLUTE MONOCYTES (AUTO) 0.8 10^3/uL (0.1-1.4); ABSOLUTE NEUT (AUTO) 4.6 10^3/uL (1.7-8.2); BASOPHILS % (AUTO) 0.5 % (0-2); EOSINOPHILS % (AUTO) 3.2 % (0-6); HEMATOCRIT 34.3 % (37.9-51.0); HEMOGLOBIN 12.4 g/dL (13.5-17.0); LYMPHOCYTES % (AUTO) 12.2 % (13-45); MEAN CORPUSCULAR HEMOGLOBIN 33.1 pg (27.0-33.4); MEAN CORPUSCULAR HGB CONC 36.2 g/dL (32.0-36.0); MEAN CORPUSCULAR VOLUME 92 fl (80-97); MONOCYTES % (AUTO) 12.7 % (3-13); PLATELET COUNT 191 10^3/uL (150-450); RED BLOOD COUNT 3.75 10^6/uL (4.35-5.55); RED CELL DISTRIBUTION WIDTH 13.5 % (11.5-14.0); SEGMENTED NEUTROPHILS % (AUTO) 71.4 % (42-78); TOTAL CELLS COUNTED % (AUTO) 100 %; WHITE BLOOD COUNT 6.4 10^3/uL (4.0-10.5)
[2019-03-22 05:29] LABS: ALBUMIN 2.9 g/dL (3.5-5.0); ALKALINE PHOSPHATASE 71 U/L (38-126); ANION GAP 7 (5-19); ASPARTATE AMINO TRANSFERASE 20 U/L (17-59); BILIRUBIN,TOTAL 0.6 mg/dL (0.2-1.3); BLOOD UREA NITROGEN 11 mg/dL (7-20); CALCIUM 8.2 mg/dL (8.4-10.2); CARBON DIOXIDE 24 mmol/L (22-30); CHLORIDE 102 mmol/L (98-107); GLUCOSE 117 mg/dL (75-110); POTASSIUM 3.3 mmol/L (3.6-5.0); TOTAL PROTEIN 5.5 g/dL (6.3-8.2)
[2019-03-22] MEDS ORDERED: POTASSIUM CHLORIDE 20 MEQ PACKET PO ONE ×2 (06:33→10:30)
[2019-03-22 08:08] LABS: ARTERIAL BLOOD BASE EXCESS -3.5 mmol/L; ARTERIAL BLOOD H2CO3 1.67 mmol/L (1.05-1.35); ARTERIAL BLOOD HCO3 24.4 mmol/L (20-24); ARTERIAL BLOOD O2 SATURATION 97.2 % (94-98); ARTERIAL BLOOD PCO2 55.4 mmHg (35-45); ARTERIAL BLOOD PH 7.26 (7.35-7.45); ARTERIAL BLOOD PO2 108.2 mmHg (80-100); ARTERIAL BLOOD TOTAL CO2 26.1 mmol/L (23-27)
[2019-03-22 08:18] LABS: ARTERIAL BLOOD FIO2 15L
--- NOTE | 2019-03-22 08:40 | RADIOLOGY REPORT (SQ) ---
EXAM DESCRIPTION: CHEST SINGLE VIEW COMPLETED DATE/TIME: 03/22/2019 8:27 am REASON FOR STUDY: respiratory distress COMPARISON: 03/20/2019. EXAM PARAMETERS: NUMBER OF VIEWS: One view. TECHNIQUE: Single frontal radiographic view of the chest acquired. RADIATION DOSE: NA LIMITATIONS: None. FINDINGS: LUNGS AND PLEURA: Airspace disease in the left lung base. Focal density in the retrocardi ac region. Right lung clear. MEDIASTINUM AND HILAR STRUCTURES: No masses. Contour normal. HEART AND VASCULAR STRUCTURES: Heart normal in size. Normal vasculature. BONES: No acute findings. HARDWARE: None in the chest. OTHER: No other significant finding. IMPRESSION: AIRSPACE DISEASE IN THE LEFT LUNG BASE, CONCERNING FOR PNEUMONIA. SLIGHTLY WORSE COMPAR ED TO THE PRIOR STUDY. FOCAL DENSITY IN THE RETROCARDIAC REGION MAY BE RELATED TO INFILTRATE ALTHOUG H CANNOT EXCLUDE UNDERLYING MASS. TECHNICAL DOCUMENTATION: JOB ID: [id number] [employer]- All Rights Reserved Reading location - IP/workstation name: [email or web address]
[2019-03-22 09:25] LABS: ABSOLUTE EOSINOPHILS # (AUTO) 0.2 10^3/uL (0.0-0.6); ABSOLUTE LYMPHOCYTES (AUTO) 0.6 10^3/uL (0.5-4.7); ABSOLUTE MONOCYTES (AUTO) 0.8 10^3/uL (0.1-1.4); ABSOLUTE NEUT (AUTO) 5.1 10^3/uL (1.7-8.2); BASOPHILS % (AUTO) 0.3 % (0-2); EOSINOPHILS % (AUTO) 2.3 % (0-6); HEMATOCRIT 36.2 % (37.9-51.0); HEMOGLOBIN 12.8 g/dL (13.5-17.0); LYMPHOCYTES % (AUTO) 9.1 % (13-45); MEAN CORPUSCULAR HEMOGLOBIN 32.5 pg (27.0-33.4); MEAN CORPUSCULAR HGB CONC 35.4 g/dL (32.0-36.0); MEAN CORPUSCULAR VOLUME 92 fl (80-97); PLATELET COUNT 221 10^3/uL (150-450); RED BLOOD COUNT 3.93 10^6/uL (4.35-5.55); RED CELL DISTRIBUTION WIDTH 13.8 % (11.5-14.0); SEGMENTED NEUTROPHILS % (AUTO) 76.3 % (42-78); TOTAL CELLS COUNTED % (AUTO) 100 %; WHITE BLOOD COUNT 6.7 10^3/uL (4.0-10.5)
[2019-03-22 09:38] LABS: ANION GAP 11 (5-19); BLOOD UREA NITROGEN 10 mg/dL (7-20); CALCIUM 8.4 mg/dL (8.4-10.2); CARBON DIOXIDE 25 mmol/L (22-30); CHLORIDE 99 mmol/L (98-107); CREATINE KINASE 39 U/L (55-170); GLUCOSE 157 mg/dL (75-110); POTASSIUM 3.5 mmol/L (3.6-5.0)
--- NOTE | 2019-03-22 09:47 | PDOC CONSULTATION ---
Consultation Consult Date: 03/22/19 Attending physician:: MANUEL CASSIDY Provider Consulted: LINO WANG Consult reason:: Respiratory distress History of Present Illness Admission Date/PCP: 03/20/19 19:09 MANUEL CASSIDY MD History of Present Illness: KAYODE DUNN is a 73 year old male Admitted to the hospital 24 hours ago for respiratory function. Patient has a history of laryngectomy, and permanent tracheostomy, and was admitted to the floor for management of pneumonia. Early this morning he developed respiratory distress and a rapid response team activation was initiated. Respiratory therapy provide appropriate support, and a large semi-fleshy, inspissated mucoid mass was expelled from the patient's airway. Patient saturations improved. No code was called. When I arrived on the floor per Dr. Cassidy's request, patient was following commands, with saturations in 99% range. Per nursing staff, there was no report of hemoptysis. Past Medical History Cardiac Medical History: Reports: Coronary Artery Disease, Hypertension Denies: Myocardial Infarction Pulmonary Medical History: Reports: Asthma, Bronchitis, Chronic Obstructive Pulmonary Disease (COPD) Denies: Pneumonia Neurological Medical History: Denies: Seizures Musculoskeltal Medical History: Denies: Arthritis Hematology: Denies: Anemia Past Surgical History Past Surgical History: Permanent tracheostomy status post laryngectomy Past Surgical History: Reports: Other - Tracheostomy Social History Smoking Status: Former Smoker Frequency of Alcohol Use: Occasional Hx Recreational Drug Use: No Hx Prescription Drug Abuse: No Family History Family History: None, Reviewed & Not Pertinent Parental Family History Reviewed: No Children Family History Reviewed: No Sibling(s) Family History Reviewed.: No Medication/Allergy Home Medications: Albuterol Sulfate [Ventolin Hfa 8 gm Mdi (1 Mdi/ER Disp)] 1 puff IH Q6HP PRN 03/20/19 Fluticasone Propion/Salmeterol [Advair HFA 115-21 mcg Inhaler] 2 puff IH BID Ibuprofen [Motrin 600 mg Tablet] 600 mg PO BIDP PRN 03/20/19 Ipratropium [place] [Atrovent 0.02% Neb 0.5 mg/2.5 ml Ampul] 1 vial IH RTBIDP PRN 03/20/19 Losartan Potassium [Cozaar 50 mg Tablet] 50 mg PO Q12 03/20/19 Tiotropium [place] [Spiriva Respimat] 2 puff IH DAILY 03/20/19 Allergies/Adverse Reactions: No Known Allergies Allergy (Verified 03/20/19 16:48) Review of Systems ROS unobtainable: Other - Due to rapid response and progress Physical Exam Vital Signs: Temp Pulse Resp BP Pulse Ox 98.2 F 99 22 H 118/53 L 99 03/22/19 07:19 03/22/19 08:06 03/22/19 08:06 03/22/19 07:19 03/22/19 08:06 Intake & Output 03/21/19 03/22/19 03/23/19 06:59 06:59 06:59 Intake Total 1050 2320 Balance 1050 2320 Weight 87.6 kg 87 kg General appearance: PRESENT: mild distress, other - Patient color pink; breathing with a minified collar over the permanent tracheostomy Eye exam: PRESENT: conjunctiva pink Neck exam: PRESENT: other - The permanent tracheostomy site is examined. There is no evidence of erythema, bleeding, cellulitis or obstruction. The stoma is wide open. There is no mucus being expelled currently Respiratory exam: PRESENT: rhonchi Cardiovascular exam: PRESENT: RRR Rectal exam: PRESENT: deferred Extremities exam: PRESENT: +2 edema Musculoskeletal exam: PRESENT: other - Unable to completely assess Neurological exam: PRESENT: awake Psychiatric exam: PRESENT: anxious Results Laboratory Results: 03/22/19 08:40 03/22/19 03/22/19 03/22/19 04:19 04:19 08:00 WBC 6.4 RBC 3.75 L Hgb 12.4 L Hct 34.3 L MCV 92 MCH 33.1 MCHC 36.2 H RDW 13.5 Plt Count 191 Seg Neutrophils % 71.4 Carbonic Acid 1.67 H HCO3/H2CO3 Ratio 14:1 ABG pH 7.26 L ABG pCO2 55.4 H ABG pO2 108.2 H ABG HCO3 24.4 H ABG O2 Saturation 97.2 ABG Base Excess -3.5 FiO2 15L Sodium 133.3 L Potassium 3.3 L Chloride 102 Carbon Dioxide 24 Anion Gap 7 BUN 11 Creatinine 0.43 L Est GFR ( Amer) > 60 Glucose 117 H Calcium 8.2 L Total Bilirubin 0.6 AST 20 Alkaline Phosphatase 71 Total Protein 5.5 L Albumin 2.9 L 03/22/19 08:40 WBC 6.7 RBC 3.93 L Hgb 12.8 L Hct 36.2 L MCV 92 MCH 32.5 MCHC 35.4 RDW 13.8 Plt Count 221 Seg Neutrophils % 76.3 Carbonic Acid HCO3/H2CO3 Ratio ABG pH ABG pCO2 ABG pO2 ABG HCO3 ABG O2 Saturation ABG Base Excess FiO2 Sodium Potassium Chloride Carbon Dioxide Anion Gap BUN Creatinine Est GFR ( Amer) Glucose Calcium Total Bilirubin AST Alkaline Phosphatase Total Protein Albumin 03/20/19 19:37 Blood Blood Culture (PCR) - Final Staphylococcus Aureus 03/20/19 03/21/19 03/21/19 17:47 05:00 05:00 Creatine Kinase 35 L CK-MB (CK-2) 1.83 Troponin I < 0.012 < 0.012 Impressions: Hip X-Ray 03/20/19 00:00 IMPRESSION: No acute findings. Carotid Doppler Study 03/21/19 00:00 IMPRESSION: Findings compatible with less than 50% stenosis of the bilateral internal carotid arteries. Chest X-Ray 03/22/19 00:00 IMPRESSION: AIRSPACE DISEASE IN THE LEFT LUNG BASE, CONCERNING FOR PNEUMONIA. SLIGHTLY WORSE COMPARED TO THE PRIOR STUDY. FOCAL DENSITY IN THE RETROCARDIAC REGION MAY BE RELATED TO INFILTRATE ALTHOUGH CANNOT EXCLUDE UNDERLYING MASS. Assessment & Plan - Diagnosis (1) Status post laryngectomy Is this a current diagnosis for this admission?: Yes Plan: Impression: Respiratory distress, with transient decompensation, now resolved after expelling lower airway obstructive mass consistent with inspissated mucus and fibrin; cannot rule out pathologic tissue. Patient doing much better with appropriate respiratory support. Recommendations: 1. No indication for emergent intervention. My clinical suspicion is this tissue was not pathologic, based on a single episode and finding of the expelled matter. I suggested close observation, if the patient continues to produce usual appearing liquid plugs, then histologic analysis may be indicated. 2. I do not see an indication for bronchoscopy at this time. Patient saturations are satisfactory. Follow-up chest x-ray may be useful to document stability of the lung donaldson. 3. Surgery will sign off; reconsult if clinically indicated. (2) Pneumonia Qualifiers: Pneumonia type: due to unspecified organism Laterality: left Lung location: lower lobe of lung Qualified Code(s): J18.9 - Pneumonia, unspecified organism Is this a current diagnosis for this admission?: Yes (3) COPD (chronic obstructive pulmonary disease) Qualifiers: COPD type: unspecified COPD Qualified Code(s): J44.9 - Chronic obstructive pulmonary disease, unspecified Is this a current diagnosis for this admission?: Yes (4) Tracheostomy dependence Is this a current diagnosis for this admission?: Yes - Time Time Spent: 30 to 50 Minutes Smoking Cessation Education: 3 to 10 minutes Medications reviewed and adjusted accordingly: Yes Anticipated discharge: Home - Inpatient Certification Based on my medical assessment, after consideration of the patient's comorbidities, presenting symptoms, or acuity I expect that the services needed warrant INPATIENT care.: Yes I certify that my determination is in accordance with my understanding of Medicare's requirements for reasonable and necessary INPATIENT services [42 CFR 412.3e].: Yes
[2019-03-22 09:49] LABS: CREATINE KINASE MB 2.25 ng/mL (<4.55)
[2019-03-22 09:57] LABS: TROPONIN I < 0.012 ng/mL
--- NOTE | 2019-03-22 10:14 | PDOC PROGRESS REPORT ---
Subjective Progress Note for:: 03/22/19 Subjective:: When I was rounding this morning with the patient's the room patient was alert awake but patient was complaining of Tracheal site something stuckAnd unable to breathe and respiratory and me suctioning we found to be junk with reticulocyte and patient's was is suddenly get blue and rapid response team was called and the patient the mucous plug or the tissue was removed and patients feel better Patient was not otherwise corded patient seen by the general surgery on the bedside and weapons officer patient is back to the baseline's Patient's daughter Sylvia was informed regarding the patient's events Patients when I left the rooms denied any chest pain no short of breath EKG chest x-ray blood work is all stable with ongoing pneumonia Reason For Visit: PNEUMONIA Physical Exam Vital Signs: Temp Pulse Resp BP Pulse Ox 98.2 F 99 22 H 118/53 L 99 03/22/19 07:19 03/22/19 08:06 03/22/19 08:06 03/22/19 07:19 03/22/19 08:06 Intake & Output 03/21/19 03/22/19 03/23/19 06:59 06:59 06:59 Intake Total 1050 2320 Balance 1050 2320 Weight 87.6 kg 87 kg General appearance: PRESENT: no acute distress, well-developed, well-nourished Head exam: PRESENT: atraumatic, normocephalic Eye exam: PRESENT: conjunctiva pink, EOMI, PERRLA. ABSENT: scleral icterus Ear exam: PRESENT: normal external ear exam Mouth exam: PRESENT: moist, tongue midline Additional comments: Tracheal site tissue piece was removed Neck exam: PRESENT: full ROM. ABSENT: carotid bruit, JVD, lymphadenopathy, thyromegaly Respiratory exam: PRESENT: clear to auscultation jm Cardiovascular exam: PRESENT: RRR. ABSENT: diastolic murmur, rubs, systolic murmur Pulses: PRESENT: normal dorsalis pedis pul, +2 pedal pulses bilateral Vascular exam: PRESENT: normal capillary refill GI/Abdominal exam: PRESENT: normal bowel sounds, soft. ABSENT: distended, guarding, mass, organolmegaly, rebound, tenderness Rectal exam: PRESENT: deferred Neurological exam: PRESENT: alert, awake, oriented to person, oriented to place, oriented to time, oriented to situation, CN II-XII grossly intact. ABSENT: motor sensory deficit Psychiatric exam: PRESENT: appropriate affect, normal mood. ABSENT: homicidal ideation, suicidal ideation Skin exam: PRESENT: dry, intact, warm. ABSENT: cyanosis, rash Results Laboratory Results: 03/22/19 08:40 03/22/19 08:40 03/22/19 03/22/19 03/22/19 04:19 04:19 08:00 WBC 6.4 RBC 3.75 L Hgb 12.4 L Hct 34.3 L MCV 92 MCH 33.1 MCHC 36.2 H RDW 13.5 Plt Count 191 Seg Neutrophils % 71.4 Carbonic Acid 1.67 H HCO3/H2CO3 Ratio 14:1 ABG pH 7.26 L ABG pCO2 55.4 H ABG pO2 108.2 H ABG HCO3 24.4 H ABG O2 Saturation 97.2 ABG Base Excess -3.5 FiO2 15L Sodium 133.3 L Potassium 3.3 L Chloride 102 Carbon Dioxide 24 Anion Gap 7 BUN 11 Creatinine 0.43 L Est GFR ( Amer) > 60 Glucose 117 H Calcium 8.2 L Magnesium Total Bilirubin 0.6 AST 20 Alkaline Phosphatase 71 Total Protein 5.5 L Albumin 2.9 L 03/22/19 03/22/19 08:40 08:40 WBC 6.7 RBC 3.93 L Hgb 12.8 L Hct 36.2 L MCV 92 MCH 32.5 MCHC 35.4 RDW 13.8 Plt Count 221 Seg Neutrophils % 76.3 Carbonic Acid HCO3/H2CO3 Ratio ABG pH ABG pCO2 ABG pO2 ABG HCO3 ABG O2 Saturation ABG Base Excess FiO2 Sodium 134.7 L Potassium 3.5 L Chloride 99 Carbon Dioxide 25 Anion Gap 11 BUN 10 Creatinine 0.40 L Est GFR ( Amer) > 60 Glucose 157 H Calcium 8.4 Magnesium 2.1 Total Bilirubin AST Alkaline Phosphatase Total Protein Albumin 03/20/19 19:37 Blood Blood Culture (PCR) - Final Staphylococcus Aureus 03/20/19 03/21/19 03/21/19 17:47 05:00 05:00 Creatine Kinase 35 L CK-MB (CK-2) 1.83 Troponin I < 0.012 < 0.012 03/22/19 03/22/19 08:40 08:40 Creatine Kinase 39 L CK-MB (CK-2) 2.25 Troponin I < 0.012 Impressions: Hip X-Ray 03/20/19 00:00 IMPRESSION: No acute findings. Carotid Doppler Study 03/21/19 00:00 IMPRESSION: Findings compatible with less than 50% stenosis of the bilateral internal carotid arteries. Chest X-Ray 03/22/19 00:00 IMPRESSION: AIRSPACE DISEASE IN THE LEFT LUNG BASE, CONCERNING FOR PNEUMONIA. SLIGHTLY WORSE COMPARED TO THE PRIOR STUDY. FOCAL DENSITY IN THE RETROCARDIAC REGION MAY BE RELATED TO INFILTRATE ALTHOUGH CANNOT EXCLUDE UNDERLYING MASS. Assessment & Plan - Diagnosis (1) Pneumonia Qualifiers: Pneumonia type: due to unspecified organism Laterality: left Lung locati on: lower lobe of lung Qualified Code(s): J18.9 - Pneumonia, unspecified organism Is this a current diagnosis for this admission?: Yes Plan: IV antibiotic (2) COPD (chronic obstructive pulmonary disease) Qualifiers: COPD type: unspecified COPD Qualified Code(s): J44.9 - Chronic obstructive pulmonary disease, unspecified Is this a current diagnosis for this admission?: Yes Plan: Continues the DuoNeb nebulizers will add the Pulmicort (3) Laryngeal cancer Is this a current diagnosis for this admission?: Yes (4) Tracheostomy dependence Is this a current diagnosis for this admission?: Yes Plan: With the events this morning we consult the ENT to further evaluation general surgery injury already evaluated says no need for any intervention at this point (5) Syncopal episodes Qualifiers: Syncope type: unspecified Qualified Code(s): R55 - Syncope and collapse Is this a current diagnosis for this admission?: Yes Plan: Patient's most likely respiratory issue patient seen by the cardiology - Time Time Spent with patient: 25-34 minutes Total Critical Time (Minutes): 30 Level of Care: IMCU Medications reviewed and adjusted accordingly: Yes Anticipated discharge: Home with Homehealth Within: Other - Plan Summary Plan Summary: Continues to IV antibiotic continues respiratory treatments discussed with the patient and the family and the daughter Sylvia regarding the patient's current conditions
[2019-03-22] MEDS: CEFEPIME HCL 2 GM in DEXTROSE 5%-WATER 50 ML IV SCH ×2 (11:02→22:10)
[2019-03-22] MEDS: LEVOFLOXACIN 500 MG/D5W RTU 500 MG/100 ML RTUPB IV SCH (11:05)
[2019-03-22] MEDS: ENOXAPARIN SODIUM INJ 40 MG/0.4 ML DISP.SYRIN SUBCUT SCH (11:05)
--- NOTE | 2019-03-22 11:55 | CDI QUERY ---
CDI Query CDI Review: Dear Provider: To better reflect your patients severity of illness, morbidity, and resource utilization Please specify and document in the Progress Notes and Discharge Summary if you are monitoring / treating / evaluating any of the following conditions: Query Clinical indicators Gram negative elena pneumonia Aspiration pneumonia Unable to determine Other Staphylococcus Aureus Bacteremia Gram Positive Cocci Bacteremia Likely Contaminant Unable to determine Other Patient admitted with Pneumonia. Tracheostomy dependent Microbiology 03/20/2019 Tracheal Aspirate Sputum Culture: Gram negative rods Blood Culture: Staphylococcus Aureus Gram positive cocci clusters Meds: IV antibiotic : Levaquin RTU Maxipime The terms probable, suspected, likely, possible or still to be ruled out may be used if you are unable to determine the exact nature of a condition. Thank you, Clinical Documentation Physician Advisors ANTHONY Adam RN, BSN RN Office [phone] Office [phone]
[2019-03-22] MEDS: BUDESONIDE NEB 0.5 MG/2 ML AMPUL NEB SCH ×2 (12:04→19:51)
[2019-03-22 12:56] LABS: ARTERIAL BLOOD BASE EXCESS 0.3 mmol/L; ARTERIAL BLOOD H2CO3 1.09 mmol/L (1.05-1.35); ARTERIAL BLOOD HCO3 24.2 mmol/L (20-24); ARTERIAL BLOOD O2 SATURATION 98.2 % (94-98); ARTERIAL BLOOD PCO2 36.3 mmHg (35-45); ARTERIAL BLOOD PH 7.44 (7.35-7.45); ARTERIAL BLOOD PO2 110.3 mmHg (80-100); ARTERIAL BLOOD TOTAL CO2 25.3 mmol/L (23-27)
[2019-03-22 13:00] LABS: ARTERIAL BLOOD FIO2 ROOM AIR
--- NOTE | 2019-03-22 13:28 | EKG REPORT ---
SEVERITY:- BORDERLINE ECG - SINUS RHYTHM PROBABLE LEFT ATRIAL ABNORMALITY BORDERLINE INFERIOR Q WAVES MINIMAL ST DEPRESSION, LATERAL LEADS, UNCHANGED FROM 03/20/19 EKG : Confirmed by: Rakesh Luna MD 22-Mar-2019 13:27:59
[2019-03-22] MEDS: FAMOTIDINE 20 MG TABLET PO SCH ×2 (13:33→22:10)
[2019-03-22] MEDS: GUAIFENESIN 600 MG TABLET.SA PO SCH ×2 (13:33→22:10)
[2019-03-22 15:51] LABS: TROPONIN I < 0.012 ng/mL
--- NOTE | 2019-03-22 17:44 | Progress Note ---
Provider Note Provider Note: CARDIOLOGY PROGRESS NOTE by Dr. Mariposa Bansal on 03/22/2019. SUBJECTIVE: The patient earlier this morning had respiratory distress due to obstruction of tracheostomy ostium with a semi-fleshy inspissated cell mass. With respiratory therapy and BARREL REPAIRER was called and the patient with the treatments expel the mass and the respiratory distress resolved. The patient denies any chest pain or discomfort. He does have some shortness of breath and he could hear him wheezing a little bit on auscultation. He has no PND orthopnea. There is no palpitations. There is no recurrence of syncope. There is no TIA CVA symptoms. There is no palpitations. There is no arrhythmia seen on the monitor. PHYSICAL EXAMINATION: The patient is a frail build and appears to be at present in no acute distress. Selected Entries 03/22/19 16:00 Temperature 99.2 F Temperature Oral Source Pulse Rate 83 Respiratory 20 Rate Blood Pressure 104/82 Blood Pressure 89 Mean BP Location Right Arm BP Position Supine O2 Sat by Pulse 97 Oximetry Oxygen Delivery Room Air Method HEAD: Is atraumatic normocephalic. EYES: Pupils are equal round regular reactive light accommodation. Extraocular movements are normal. There is no conjunctival pallor. There is no scleral icterus. EARS: Tympanic membranes are intact. External auditory canals are clear. NOSE: There is no deviated nasal septum. There is no inflammation nasal mucous membrane. MOUTH: Mucous membranes of mouth are moist. Tongue is moist. There is no ulcers. There is no bleeding from the gums. THROAT: There is no redness of the oropharynx. There is no exudates. The patient patient has a tracheostomy stoma which is clean and without signs of any infection. NECK: Is supple. There is no JVD. Carotids are equal there is no bruit there is no lymphadenopathy. There is no accessory muscle respiration use. There is no goiter. Trachea central. SKIN: There is no skin rashes. There is no skin lesions. There is no petechia or ecchymosis. LUNGS: There is diminished air entry prolonged expiration. There is a few dry crackles in the left base. There is a few end expiratory wheezing present bilaterally. There is no rhonchi. There is no rales of CHF. There is hyperresonance on percussion. HEART: S1-S2 is heard. There is no S3 gallop. There is no S4 gallop. There is systolic murmur left sternal border and the apex there is no rub. ABDOMEN: Soft. Nontender. There is no hepatosplenomegaly bowel sounds well heard. EXTREMITIES: Femorals is well felt. There is no femoral bruits. There is no leg edema there is no pedal edema. There is no DVT or cellulitis. There is no calf tenderness. There is no cyanosis or clubbing. VENOUS: The patient is conscious awake alert oriented x3 with no focal deficits. PSYCHIATRIC: Patient judgment insight are intact his affect is normal. Labs- All tests 24 hr 03/22/19 03/22/19 03/22/19 04:19 04:19 07:46 WBC 6.4 RBC 3.75 L Hgb 12.4 L Hct 34.3 L MCV 92 MCH 33.1 MCHC 36.2 H RDW 13.5 Plt Count 191 Lymph % (Auto) 12.2 L Waldo % (Auto) 12.7 Eos % (Auto) 3.2 Baso % (Auto) 0.5 Absolute Neuts (auto) 4.6 Absolute Lymphs (auto) 0.8 Absolute Monos (auto) 0.8 Absolute Eos (auto) 0.2 Absolute Basos (auto) 0.0 Seg Neutrophils % 71.4 Carbonic Acid HCO3/H2CO3 Ratio ABG pH ABG pCO2 ABG pO2 ABG HCO3 ABG Total CO2 ABG O2 Saturation ABG Base Excess FiO2 Sodium 133.3 L Potassium 3.3 L Chloride 102 Carbon Dioxide 24 Anion Gap 7 BUN 11 Creatinine 0.43 L Est GFR ( Amer) > 60 Est GFR (MDRD) Non-Af > 60 Glucose 117 H POC Glucose 144 H Calcium 8.2 L Magnesium Total Bilirubin 0.6 Direct Bilirubin 0.0 Neonat Total Bilirubin Not Reportable Neonat Direct Bilirubin Not Reportable Neonat Indirect Bili Not Reportable AST 20 ALT 19 Alkaline Phosphatase 71 Creatine Kinase CK-MB (CK-2) Troponin I Total Protein 5.5 L Albumin 2.9 L 03/22/19 03/22/19 03/22/19 08:00 08:40 08:40 WBC 6.7 RBC 3.93 L Hgb 12.8 L Hct 36.2 L MCV 92 MCH 32.5 MCHC 35.4 RDW 13.8 Plt Count 221 Lymph % (Auto) 9.1 L Waldo % (Auto) 12.0 Eos % (Auto) 2.3 Baso % (Auto) 0.3 Absolute Neuts (auto) 5.1 Absolute Lymphs (auto) 0.6 Absolute Monos (auto) 0.8 Absolute Eos (auto) 0.2 Absolute Basos (auto) 0.0 Seg Neutrophils % 76.3 Carbonic Acid 1.67 H HCO3/H2CO3 Ratio 14:1 ABG pH 7.26 L ABG pCO2 55.4 H ABG pO2 108.2 H ABG HCO3 24.4 H ABG Total CO2 26.1 ABG O2 Saturation 97.2 ABG Base Excess -3.5 FiO2 15L Sodium 134.7 L Potassium 3.5 L Chloride 99 Carbon Dioxide 25 Anion Gap 11 BUN 10 Creatinine 0.40 L Est GFR ( Amer) > 60 Est GFR (MDRD) Non-Af > 60 Glucose 157 H POC Glucose Calcium 8.4 Magnesium 2.1 Total Bilirubin Direct Bilirubin Neonat Total Bilirubin Neonat Direct Bilirubin Neonat Indirect Bili AST ALT Alkaline Phosphatase Creatine Kinase 39 L CK-MB (CK-2) Troponin I Total Protein Albumin 03/22/19 03/22/19 03/22/19 08:40 12:33 15:00 WBC RBC Hgb Hct MCV MCH MCHC RDW Plt Count Lymph % (Auto) Waldo % (Auto) Eos % (Auto) Baso % (Auto) Absolute Neuts (auto) Absolute Lymphs (auto) Absolute Monos (auto) Absolute Eos (auto) Absolute Basos (auto) Seg Neutrophils % Carbonic Acid 1.09 HCO3/H2CO3 Ratio 22:1 ABG pH 7.44 ABG pCO2 36.3 ABG pO2 110.3 H ABG HCO3 24.2 H ABG Total CO2 25.3 ABG O2 Saturation 98.2 H ABG Base Excess 0.3 FiO2 ROOM AIR Sodium Potassium Chloride Carbon Dioxide Anion Gap BUN Creatinine Est GFR ( Amer) Est GFR (MDRD) Non-Af Glucose POC Glucose Calcium Magnesium Total Bilirubin Direct Bilirubin Neonat Total Bilirubin Neonat Direct Bilirubin Neonat Indirect Bili AST ALT Alkaline Phosphatase Creatine Kinase 30 L CK-MB (CK-2) 2.25 Troponin I < 0.012 Total Protein Albumin 03/22/19 15:00 WBC RBC Hgb Hct MCV MCH MCHC RDW Plt Count Lymph % (Auto) Waldo % (Auto) Eos % (Auto) Baso % (Auto) Absolute Neuts (auto) Absolute Lymphs (auto) Absolute Monos (auto) Absolute Eos (auto) Absolute Basos (auto) Seg Neutrophils % Carbonic Acid HCO3/H2CO3 Ratio ABG pH ABG pCO2 ABG pO2 ABG HCO3 ABG Total CO2 ABG O2 Saturation ABG Base Excess FiO2 Sodium Potassium Chloride Carbon Dioxide Anion Gap BUN Creatinine Est GFR ( Amer) Est GFR (MDRD) Non-Af Glucose POC Glucose Calcium Magnesium Total Bilirubin Direct Bilirubin Neonat Total Bilirubin Neonat Direct Bilirubin Neonat Indirect Bili AST ALT Alkaline Phosphatase Creatine Kinase CK-MB (CK-2) 2.30 Troponin I < 0.012 Total Protein Albumin Hip X-Ray 03/20/19 00:00 IMPRESSION: No acute findings. Chest X-Ray 03/20/19 16:57 IMPRESSION: Left lower lobe pneumonia. Carotid Doppler Study 03/21/19 00:00 IMPRESSION: Findings compatible with less than 50% stenosis of the bilateral internal carotid arteries. Chest X-Ray 03/22/19 00:00 IMPRESSION: AIRSPACE DISEASE IN THE LEFT LUNG BASE, CONCERNING FOR PNEUMONIA. SLIGHTLY WORSE COMPARED TO THE PRIOR STUDY. FOCAL DENSITY IN THE RETROCARDIAC REGION MAY BE RELATED TO INFILTRATE ALTHOUGH CANNOT EXCLUDE UNDERLYING MASS. IMPRESSION/RECOMMENDATION: 1. Acute respiratory distress this morning due to tracheostomy or loss still obstruction due to a semi-fleshy inspissated mass. This has resolved after the patient expectorated the mass. The patient has a tracheostomy tube in situ. 2. History of syncope: Etiology not clear. Await records from [facility]. The patient most likely will require a 30-day event monitor. Still await records from [facility]. 3. Left lower lobe pneumonia: Continue antibiotics. 4. History of chronic obstructive pulmonary disease: No acute exacerbation. Continue current treatment. 5. History of hypertension: Blood pressure well controlled. 6. History of throat cancer status post tracheostomy: Patient claims that there is no recurrence of the throat cancer. Medications reviewed. Medical regimen and management plan discussed with attending provider on the case. Medical decision making is a moderate complexity. 35 minutes spent as patient more than 50% of time spent in direct patient care. Will follow.
[2019-03-22 20:28] LABS: CREATINE KINASE MB 2.62 ng/mL (<4.55)
[2019-03-22 20:29] LABS: TROPONIN I < 0.012 ng/mL
[2019-03-23] MEDS: IPRATROPIUM/ALBUTEROL 0.5-2.5 MG/3 ML AMPUL NEB SCH ×6 (00:04→20:24)
[2019-03-23] MEDS: ACETAMINOPHEN 325 MG TABLET PO PRN (00:29)
[2019-03-23 05:06] LABS: ABSOLUTE EOSINOPHILS # (AUTO) 0.1 10^3/uL (0.0-0.6); ABSOLUTE LYMPHOCYTES (AUTO) 0.9 10^3/uL (0.5-4.7); ABSOLUTE MONOCYTES (AUTO) 0.9 10^3/uL (0.1-1.4); ABSOLUTE NEUT (AUTO) 4.1 10^3/uL (1.7-8.2); BASOPHILS % (AUTO) 0.5 % (0-2); EOSINOPHILS % (AUTO) 1.6 % (0-6); HEMATOCRIT 32.8 % (37.9-51.0); HEMOGLOBIN 11.9 g/dL (13.5-17.0); LYMPHOCYTES % (AUTO) 14.6 % (13-45); MEAN CORPUSCULAR HEMOGLOBIN 33.1 pg (27.0-33.4); MEAN CORPUSCULAR HGB CONC 36.3 g/dL (32.0-36.0); MEAN CORPUSCULAR VOLUME 91 fl (80-97); MONOCYTES % (AUTO) 15.6 % (3-13); PLATELET COUNT 225 10^3/uL (150-450); RED CELL DISTRIBUTION WIDTH 13.4 % (11.5-14.0); SEGMENTED NEUTROPHILS % (AUTO) 67.7 % (42-78); TOTAL CELLS COUNTED % (AUTO) 100 %
[2019-03-23 05:23] LABS: ALKALINE PHOSPHATASE 72 U/L (38-126); ANION GAP 11 (5-19); ASPARTATE AMINO TRANSFERASE 25 U/L (17-59); BILIRUBIN,DIRECT 0.3 mg/dL (0.0-0.4); BILIRUBIN,TOTAL 0.7 mg/dL (0.2-1.3); BLOOD UREA NITROGEN 9 mg/dL (7-20); CALCIUM 8.6 mg/dL (8.4-10.2); CARBON DIOXIDE 25 mmol/L (22-30); CHLORIDE 101 mmol/L (98-107); GLUCOSE 113 mg/dL (75-110); POTASSIUM 3.3 mmol/L (3.6-5.0); TOTAL PROTEIN 5.8 g/dL (6.3-8.2)
[2019-03-23] MEDS: BUDESONIDE NEB 0.5 MG/2 ML AMPUL NEB SCH ×2 (08:32→20:24)
--- NOTE | 2019-03-23 08:39 | RADIOLOGY REPORT (SQ) ---
EXAM DESCRIPTION: CT CHEST WITH COMPLETED DATE/TIME: 03/23/2019 8:24 am REASON FOR STUDY: sob/pnemonia/mass/h/p largeal cancer COMPARISON: 06/03/2017 TECHNIQUE: CT scan of the chest performed using helical scanning technique with dynamic intravenous contrast injection. Images reviewed with lung, soft tissue and bone windows. Reconstructed coronal and sagittal MPR and MIP images reviewed. All images stored on PACS. All CT scanners at this facility use dose modulation, iterative reconstruction, and/or weight based d osing when appropriate to reduce radiation dose to as low as reasonably achievable (ALARA). [facility]: Dose Right [facility]: CareDose [facility]: Dose Right [facility]: Teradose 4D [facility]: Ascenz CONTRAST TYPE AND DOSE: contrast/concentration: Isovue 350.00 mg/ml; Total Contrast Delivered: 80.0 ml; Total Saline Delivered: 55.0 ml RENAL FUNCTION: GFR > 60. RADIATION DOSE: CT Rad equipment meets quality standard of care and radiation dose reduction techniq ues were employed. CTDIvol: 9.9 mGy. DLP: 379 mGy-cm. . LIMITATIONS: None. FINDINGS: LUNGS AND PLEURA: Consolidation and volume loss in the lingula. Extensive consolidation i n the left lower lobe with mild patchy volume loss or additional consolidation in the right lower lob e. Patient appears to have chronic recurrent shifting infiltrates. There is a small left pleural ef fusion. HILAR AND MEDIASTINAL STRUCTURES: Mild mediastinal adenopathy with nodes measuring up to 1 cm short a xis. Relatively stable. HEART AND VASCULAR STRUCTURES: No aneurysm or dissection. No central pulmonary emboli. No pericardi al effusion. Moderate coronary calcification. HARDWARE: None in the chest. UPPER ABDOMEN: No significant findings. Limited exam. THYROID AND OTHER SOFT TISSUES: No masses. No adenopathy. BONES: No significant finding. OTHER: No other significant finding. IMPRESSION: 1. Extensive areas of pneumonia, most pronounced in the left upper lobe and left lower lobe. Small l eft parapneumonic effusion with minimal right pneumonia also suggested. TECHNICAL DOCUMENTATION: JOB ID: [id number] Quality ID # [id number]: Final reports with documentation of one or more dose reduction techniques (e.g., Au tomated exposure control, adjustment of the mA and/or kV according to patient size, use of iterative reconstruction technique) 2010 [employer]- All Rights Reserved Reading location - IP/workstation name: [email or web address]
[2019-03-23] MEDS ORDERED: POTASSIUM CHLORIDE 20 MEQ PACKET PO ONE (08:41)
--- NOTE | 2019-03-23 08:41 | RADIOLOGY REPORT (SQ) ---
EXAM DESCRIPTION: CT HEAD COMBO COMPLETED DATE/TIME: 03/23/2019 8:24 am REASON FOR STUDY: r/o cancer COMPARISON: None. TECHNIQUE: Axial images acquired through the brain without and with intravenous contrast. Images re viewed with bone, brain and subdural windows. Additional sagittal and coronal reconstructions were g enerated. Images stored on PACS. All CT scanners at this facility use dose modulation, iterative reconstruction, and/or weight based d osing when appropriate to reduce radiation dose to as low as reasonably achievable (ALARA). [facility]: Dose Right [facility]: CareDose [facility]: Dose Right [facility]: Teradose 4D [facility]: Smart BEETmobile RENAL FUNCTION: GFR > 60. RADIATION DOSE: CT Rad equipment meets quality standard of care and radiation dose reduction techniq ues were employed. CTDIvol: 48.7 mGy. DLP: 955 mGy-cm.. LIMITATIONS: None. FINDINGS: VENTRICLES: Normal size and contour. CEREBRUM: No masses. No hemorrhage. No midline shift. Normal cabral/white matter differentiation. No ev idence for acute infarction. No enhancing lesions. CEREBELLUM: No masses. No hemorrhage. No alteration of density. No evidence for acute infarction. No enhancing lesions. EXTRA-AXIAL SPACES: No fluid collections. No enhancing lesions. ORBITS AND GLOBE: No intra- or extraconal masses. Normal contour of globe without masses. CALVARIUM: No fracture. PARANASAL SINUSES: No fluid or mucosal thickening. SOFT TISSUES: No mass or hematoma. OTHER: Artifact along the skull base suggests stenting and/or treatment for prior aneurysm. Correlat e with history. IMPRESSION: 1. No acute or suspicious intracranial abnormality. Specifically, no evidence of enhancing lesions t o suggest underlying metastases. EVIDENCE OF ACUTE STROKE: NO. TECHNICAL DOCUMENTATION: JOB ID: [id number] Quality ID # [id number]: Final reports with documentation of one or more dose reduction techniques (e.g., Au tomated exposure control, adjustment of the mA and/or kV according to patient size, use of iterative reconstruction technique) 2010 [employer]- All Rights Reserved Reading location - IP/workstation name: [email or web address]
--- NOTE | 2019-03-23 09:09 | PDOC PROGRESS REPORT ---
Subjective Progress Note for:: 03/23/19 Subjective:: Patient is currently doing better Per discussed with the ENT yesterday he did a scope and he suggest the patient have appointment to see this on ENT in [place] next week follow with him he suggest an order the CT scan of the neck Patient's feeling better denied any chest pain no short of breath Reason For Visit: PNEUMONIA Physical Exam Vital Signs: Temp Pulse Resp BP Pulse Ox 99.4 F 82 21 H 133/63 H 99 03/23/19 07:46 03/23/19 07:46 03/23/19 07:46 03/23/19 07:46 03/23/19 07:46 Intake & Output 03/22/19 03/23/19 03/24/19 06:59 06:59 06:59 Intake Total 2320 400 Balance 2320 400 Weight 87 kg 85.5 kg General appearance: PRESENT: no acute distress, well-developed, well-nourished Head exam: PRESENT: atraumatic, normocephalic Eye exam: PRESENT: conjunctiva pink, EOMI, PERRLA. ABSENT: scleral icterus Ear exam: PRESENT: normal external ear exam Mouth exam: PRESENT: moist, tongue midline Additional comments: Tracheostomy Neck exam: PRESENT: full ROM. ABSENT: carotid bruit, JVD, lymphadenopathy, thyromegaly Respiratory exam: PRESENT: clear to auscultation jm Cardiovascular exam: PRESENT: RRR. ABSENT: diastolic murmur, rubs, systolic murmur Pulses: PRESENT: normal dorsalis pedis pul, +2 pedal pulses bilateral Vascular exam: PRESENT: normal capillary refill GI/Abdominal exam: PRESENT: normal bowel sounds, soft. ABSENT: distended, guarding, mass, organolmegaly, rebound, tenderness Rectal exam: PRESENT: deferred Musculoskeletal exam: PRESENT: ambulatory Neurological exam: PRESENT: alert, awake, oriented to person, oriented to place, oriented to time, oriented to situation, CN II-XII grossly intact. ABSENT: motor sensory deficit Psychiatric exam: PRESENT: appropriate affect, normal mood. ABSENT: homicidal i deation, suicidal ideation Skin exam: PRESENT: dry, intact, warm. ABSENT: cyanosis, rash Results Laboratory Results: 03/23/19 04:07 03/23/19 04:07 03/22/19 03/22/19 03/22/19 08:40 08:40 12:33 WBC 6.7 RBC 3.93 L Hgb 12.8 L Hct 36.2 L MCV 92 MCH 32.5 MCHC 35.4 RDW 13.8 Plt Count 221 Seg Neutrophils % 76.3 Carbonic Acid 1.09 HCO3/H2CO3 Ratio 22:1 ABG pH 7.44 ABG pCO2 36.3 ABG pO2 110.3 H ABG HCO3 24.2 H ABG O2 Saturation 98.2 H ABG Base Excess 0.3 FiO2 ROOM AIR Sodium 134.7 L Potassium 3.5 L Chloride 99 Carbon Dioxide 25 Anion Gap 11 BUN 10 Creatinine 0.40 L Est GFR ( Amer) > 60 Glucose 157 H Calcium 8.4 Magnesium 2.1 Total Bilirubin AST Alkaline Phosphatase Total Protein Albumin 03/23/19 03/23/19 04:07 04:07 WBC 6.0 RBC 3.60 L Hgb 11.9 L Hct 32.8 L MCV 91 MCH 33.1 MCHC 36.3 H RDW 13.4 Plt Count 225 Seg Neutrophils % 67.7 Carbonic Acid HCO3/H2CO3 Ratio ABG pH ABG pCO2 ABG pO2 ABG HCO3 ABG O2 Saturation ABG Base Excess FiO2 Sodium 137.1 Potassium 3.3 L Chloride 101 Carbon Dioxide 25 Anion Gap 11 BUN 9 Creatinine 0.41 L Est GFR ( Amer) > 60 Glucose 113 H Calcium 8.6 Magnesium Total Bilirubin 0.7 AST 25 Alkaline Phosphatase 72 Total Protein 5.8 L Albumin 3.0 L 03/20/19 20:40 Tracheal Aspirate Gram Stain - Final 03/20/19 20:40 Tracheal Aspirate Sputum Culture - Final Pseudomonas Aeruginosa Klebsiella Oxytoca Corynebacterium Striatum Normal Lynne Absent 03/20/19 19:37 Blood Blood Culture (PCR) - Final Staphylococcus Aureus 03/20/19 03/21/19 03/21/19 17:47 05:00 05:00 Creatine Kinase 35 L CK-MB (CK-2) 1.83 Troponin I < 0.012 < 0.012 03/22/19 03/22/19 03/22/19 08:40 08:40 15:00 Creatine Kinase 39 L 30 L CK-MB (CK-2) 2.25 Troponin I < 0.012 03/22/19 03/22/19 03/22/19 15:00 19:39 19:39 Creatine Kinase 40 L CK-MB (CK-2) 2.30 2.62 Troponin I < 0.012 < 0.012 Impressions: Hip X-Ray 03/20/19 00:00 IMPRESSION: No acute findings. Carotid Doppler Study 03/21/19 00:00 IMPRESSION: Findings compatible with less than 50% stenosis of the bilateral internal carotid arteries. Chest X-Ray 03/22/19 00:00 IMPRESSION: AIRSPACE DISEASE IN THE LEFT LUNG BASE, CONCERNING FOR PNEUMONIA. SLIGHTLY WORSE COMPARED TO THE PRIOR STUDY. FOCAL DENSITY IN THE RETROCARDIAC REGION MAY BE RELATED TO INFILTRATE ALTHOUGH CANNOT EXCLUDE UNDERLYING MASS. Chest CT 03/23/19 08:00 IMPRESSION: 1. Extensive areas of pneumonia, most pronounced in the left upper lobe and left lower lobe. Small left parapneumonic effusion with minimal right pneumonia also suggested. Head CT 03/23/19 08:00 IMPRESSION: 1. No acute or suspicious intracranial abnormality. Specifically, no evidence of enhancing lesions to suggest underlying metastases. EVIDENCE OF ACUTE STROKE: NO. Assessment & Plan - Diagnosis (1) Pneumonia Qualifiers: Pneumonia type: due to unspecified organism Laterality: left Lung location: lower lobe of lung Qualified Code(s): J18.9 - Pneumonia, unspecified organism Is this a current diagnosis for this admission?: Yes Plan: Continues to IV antibiotics as the organism is sensitive to cefepime and Levaquin both (2) COPD (chronic obstructive pulmonary disease) Qualifiers: COPD type: unspecified COPD Qualified Code(s): J44.9 - Chronic obstructive pulmonary disease, unspecified Is this a current diagnosis for this admission?: Yes Plan: nebulizer treatments (3) Laryngeal cancer Is this a current diagnosis for this admission?: Yes Plan: Patient is scheduled for the CT of the neck and the CT of the chest Seen by the ENT already And the tissue coming from the trachea for the pathology (4) Tracheostomy dependence Is this a current diagnosis for this admission?: Yes Plan: Seen by the ENT (5) Syncopal episodes Qualifiers: Syncope type: unspecified Qualified Code(s): R55 - Syncope and collapse Is this a current diagnosis for this admission?: Yes - Time Time Spent with patient: 15-24 minutes Level of Care: IMCU Medications reviewed and adjusted accordingly: Yes Anticipated discharge: Other Within: Other - Plan Summary Plan Summary: Continues to IV antibiotic
[2019-03-23] MEDS: GUAIFENESIN 600 MG TABLET.SA PO SCH ×2 (09:35→21:48)
[2019-03-23] MEDS: FAMOTIDINE 20 MG TABLET PO SCH ×2 (09:35→21:48)
[2019-03-23] MEDS: CEFEPIME HCL 2 GM in DEXTROSE 5%-WATER 50 ML IV SCH ×2 (09:36→21:48)
[2019-03-23] MEDS: LEVOFLOXACIN 500 MG/D5W RTU 500 MG/100 ML RTUPB IV SCH (09:36)
[2019-03-23] MEDS: ENOXAPARIN SODIUM INJ 40 MG/0.4 ML DISP.SYRIN SUBCUT SCH (09:37)
--- NOTE | 2019-03-23 12:11 | PDOC CONSULTATION ---
Consultation Consult Date: 03/22/19 Provider Consulted: DANIELLE GRACIA Consult reason:: Dr. Cassidy requested ENT consult for patient with acute mucus plugging of his laryngectomy stoma site with emergent airway distress with mucous plug removed and patient stabilized. History of Present Illness Admission Date/PCP: 03/20/19 19:09 MANUEL CASSIDY MD History of Present Illness: KAYODE DUNN is a 73 year old male with reported history of a fall within the past 2 weeks resulting in injuries to the right side of his head upper body and chest resulting in shallow breathing and admission to [facility] after the fall and the patient was released to home. Ever, the patient within 1 to 2 days developed fevers and was having more difficulty breathing and was with a significant increase in secretions and upon seeing Dr. Cassidy was sent to [facility] for admission and management. The patient was diagnosed with left sided pneumonia. On the morning of March 22, 2019 the patient was noted to be in acute airway distress with significant mucus plugging of his laryngectomy stoma site with medical staff response and mobilization of the mucous plug and stabilization of the patient. The patient underwent a laryngectomy for laryngeal cancer more than 10 years ago and is followed by Dr. Jj ENT head neck oncology at [facility]. The patient also has a TEP speech prosthesis. Past Medical History Cardiac Medical History: Reports: Coronary Artery Disease, Hypertension Denies: Myocardial Infarction Pulmonary Medical History: Reports: Asthma, Bronchitis, Chronic Obstructive Pulmonary Disease (COPD) Denies: Pneumonia Neurological Medical History: Denies: Seizures Musculoskeltal Medical History: Denies: Arthritis Hematology: Denies: Anemia Past Surgical History Past Surgical History: Reports: Other - The patient is with a post laryngectomy stoma site Social History Information Source: Patient Lives with: Family Smoking Status: Former Smoker Frequency of Alcohol Use: Occasional Hx Recreational Drug Use: No Hx Prescription Drug Abuse: No Family History Family History: None, Reviewed & Not Pertinent Parental Family History Reviewed: Yes - N/A Children Family History Reviewed: NA Sibling(s) Family History Reviewed.: NA Medication/Allergy Home Medications: Albuterol Sulfate [Ventolin Hfa 8 gm Mdi (1 Mdi/ER Disp)] 1 puff IH Q6HP PRN 03/20/19 Fluticasone Propion/Salmeterol [Advair HFA 115-21 mcg Inhaler] 2 puff IH BID 02/11/20 Ibuprofen [Motrin 600 mg Tablet] 600 mg PO BIDP PRN 03/20/19 Ipratropium [place] [Atrovent 0.02% Neb 0.5 mg/2.5 ml Ampul] 1 vial IH RTBIDP PRN 03/20/19 Losartan Potassium [Cozaar 50 mg Tablet] 50 mg PO Q12 03/20/19 Tiotropium [place] [Spiriva Respimat] 2 puff IH DAILY 03/20/19 Allergies/Adverse Reactions: No Known Allergies Allergy (Verified 03/20/19 16:48) Review of Systems Constitutional: PRESENT: as per HPI Eyes: ABSENT: as per HPI, visual disturbances, other Ears: ABSENT: as per HPI, hearing changes, other Nose, Mouth, and Throat: ABSENT: as per HPI, headache(s), mouth pain, sore throat, vertigo, other Cardiovascular: PRESENT: dyspnea on exertion Respiratory: PRESENT: as per HPI, cough, sputum Gastrointestinal: PRESENT: as per HPI Genitourinary: ABSENT: dysuria, hematuria Musculoskeletal: PRESENT: back pain, joint swelling, muscle weakness Integumentary: PRESENT: as per HPI Neurological: PRESENT: as per HPI, abnormal gait, lack of coordination, memory loss Endocrine: PRESENT: as per HPI Hematologic/Lymphatic: PRESENT: easy bruising Allergic/Immunologic: PRESENT: as per HPI Physical Exam Vital Signs: Temp Pulse Resp BP Pulse Ox 99.4 F 88 16 133/63 H 91 L 03/23/19 07:46 03/23/19 08:32 03/23/19 08:32 03/23/19 07:46 03/23/19 08:32 Intake & Output 03/22/19 03/23/19 03/24/19 06:59 06:59 06:59 Intake Total 2320 550 Balance 2320 550 Weight 87 kg 85.5 kg General appearance: PRESENT: no acute distress, cooperative, hard of hearing, mild distress, other - Patient with intermittent deep coughing throughout the consult, but difficulty with mobilization of secretions Head exam: PRESENT: other - Patient with scattered right facial ecchymoses from his recent fall Eye exam: PRESENT: EOMI Ear exam: PRESENT: normal external ear exam, TM's normal bilaterally Mouth exam: PRESENT: moist, neck supple, tongue midline Throat exam: PRESENT: other - Moist mucous membranes and significant soft palate redundant tissue Neck exam: PRESENT: other - The neck is supple, no LAD, the laryngectomy stoma site is stable, widely patent, and with over lying surrounding stoma skin guard/shield, and the patient is able to occlude with his thumb and produce some limited esophageal speech which is very difficult to understand and is int errupted by coughing Respiratory exam: PRESENT: crackles, decreased breath sounds, wheezes Cardiovascular exam: PRESENT: RRR Extremities exam: PRESENT: other - The patient is able to stand and transfer from chair to bed and back, but with some decreased overall mobility and decreased speed of mobility Musculoskeletal exam: PRESENT: other - ALYCE, and the patient is noted to have scattered areas of ecchymoses over his right forearm/hand Neurological exam: PRESENT: alert, oriented to person, oriented to place, oriented to time, oriented to situation, CN II-XII grossly intact, other - Gait/ability as noted above Psychiatric exam: PRESENT: normal mood Skin exam: PRESENT: abrasion, dry, warm, other - Scattered areas of ecchymoses as noted above Additional comments: The plan for transnasal flexible endoscopy and trans-laryngectomy stomal endoscopy of the trachea and upper airways/bronchi was all discussed with the patient and his son which they voiced an understanding of and desired to proceed with. The patient underwent transnasal flexible endoscopy first with no sinonasal polyps, thick PND was noted, SHAKE BACKBOARD NOTCHER/Estela were unremarkable, OP/HP was unremarkable except for anatomic changes consistent with a prior laryngectomy, there was extensive thick mucus which also limited the most distal views. The patient next underwent trans-laryngectomy stoma endoscopy with TEP appearing half obstructed by tissue fullness/granulation tissue in the appearance of a fungal process along with mucus and crusting, the trachea and upper bronchi were with extensive thick yellowish mucus with an overall decrease in moisturization, there was no bleeding or blood clots, and there were no concerning masses or lesions noted and the patient tolerated the procedure well and there were no complications. Results Laboratory Results: 03/23/19 04:07 03/23/19 04:07 03/22/19 03/23/19 03/23/19 12:33 04:07 04:07 WBC 6.0 RBC 3.60 L Hgb 11.9 L Hct 32.8 L MCV 91 MCH 33.1 MCHC 36.3 H RDW 13.4 Plt Count 225 Seg Neutrophils % 67.7 Carbonic Acid 1.09 HCO3/H2CO3 Ratio 22:1 ABG pH 7.44 ABG pCO2 36.3 ABG pO2 110.3 H ABG HCO3 24.2 H ABG O2 Saturation 98.2 H ABG Base Excess 0.3 FiO2 ROOM AIR Sodium 137.1 Potassium 3.3 L Chloride 101 Carbon Dioxide 25 Anion Gap 11 BUN 9 Creatinine 0.41 L Est GFR ( Amer) > 60 Glucose 113 H Calcium 8.6 Total Bilirubin 0.7 AST 25 Alkaline Phosphatase 72 Total Protein 5.8 L Albumin 3.0 L 03/20/19 20:40 Tracheal Aspirate Gram Stain - Final 03/20/19 20:40 Tracheal Aspirate Sputum Culture - Final Pseudomonas Aeruginosa Klebsiella Oxytoca Corynebacterium Striatum Normal Lynne Absent 03/20/19 19:37 Blood Blood Culture (PCR) - Final Staphylococcus Aureus 03/20/19 03/21/19 03/21/19 17:47 05:00 05:00 Creatine Kinase 35 L CK-MB (CK-2) 1.83 Troponin I < 0.012 < 0.012 03/22/19 03/22/19 03/22/19 08:40 08:40 15:00 Creatine Kinase 39 L 30 L CK-MB (CK-2) 2.25 Troponin I < 0.012 03/22/19 03/22/19 03/22/19 15:00 19:39 19:39 Creatine Kinase 40 L CK-MB (CK-2) 2.30 2.62 Troponin I < 0.012 < 0.012 Impressions: Hip X-Ray 03/20/19 00:00 IMPRESSION: No acute findings. Carotid Doppler Study 03/21/19 00:00 IMPRESSION: Findings compatible with less than 50% stenosis of the bilateral internal carotid arteries. Chest X-Ray 03/22/19 00:00 IMPRESSION: AIRSPACE DISEASE IN THE LEFT LUNG BASE, CONCERNING FOR PNEUMONIA. SLIGHTLY WORSE COMPARED TO THE PRIOR STUDY. FOCAL DENSITY IN THE RETROCARDIAC REGION MAY BE RELATED TO INFILTRATE ALTHOUGH CANNOT EXCLUDE UNDERLYING MASS. Chest CT 03/23/19 08:00 IMPRESSION: 1. Extensive areas of pneumonia, most pronounced in the left upper lobe and left lower lobe. Small left parapneumonic effusion with minimal right pneumonia also suggested. Head CT 03/23/19 08:00 IMPRESSION: 1. No acute or suspicious intracranial abnormality. Specifically, no evidence of enhancing lesions to suggest underlying metastases. EVIDENCE OF ACUTE STROKE: NO. Assessment & Plan - Diagnosis (1) Status post laryngectomy Is this a current diagnosis for this admission?: Yes (2) Bilateral pneumonia Qualifiers: Pneumonia type: due to unspecified organism Lung location: unspecified part of lung Qualified Code(s): J18.9 - Pneumonia, unspecified organism (3) COPD (chronic obstructive pulmonary disease) Qualifiers: COPD type: unspecified COPD Qualified Code(s): J44.9 - Chronic obstructive pulmonary disease, unspecified Is this a current diagnosis for this admission?: Yes (4) Laryngeal cancer Is this a current diagnosis for this admission?: Yes - Time Time Spent: 50 to 70 Minutes - The consult also included endoscopic evaluations consisting of the following: CPT code 59194 flexible nasopharyngoscopy CPT code 62148 flexible tracheal bronchoscopy via the patient's laryngectomy stoma Medications reviewed and adjusted accordingly: Yes Anticipated discharge: Other - The patient will be with ongoing hospitalization at [facility] and recommendation for home health assistance daily for ongoing stoma care and suctioning. - Plan Summary Plan Summary: Extensive discussion with Dr. Cassidy at the end of the consult with findings including endoscopic evaluation shared with recommendations for regular humidified stoma collar and regular respiratory therapy/RT stoma/suctioning/moisturization management as the patient receives ongoing care for bilateral pneumonia management all of which Dr. Cassidy voiced an understanding of and agreed with. Recommendation also for daily home health c are for the patient to assist with stoma management and suctioning with continued mobilization of secretions and the patient also already has an appointment with Dr. Jj ENT head neck oncology at [facility] in approximately 1 week which the patient and his son verbalized.
[2019-03-24] MEDS: IPRATROPIUM/ALBUTEROL 0.5-2.5 MG/3 ML AMPUL NEB SCH ×6 (00:50→21:02)
[2019-03-24 04:53] LABS: ABSOLUTE EOSINOPHILS # (AUTO) 0.1 10^3/uL (0.0-0.6); ABSOLUTE LYMPHOCYTES (AUTO) 1.2 10^3/uL (0.5-4.7); ABSOLUTE MONOCYTES (AUTO) 1.1 10^3/uL (0.1-1.4); ABSOLUTE NEUT (AUTO) 4.2 10^3/uL (1.7-8.2); BASOPHILS % (AUTO) 0.5 % (0-2); EOSINOPHILS % (AUTO) 1.4 % (0-6); HEMATOCRIT 34.9 % (37.9-51.0); HEMOGLOBIN 12.6 g/dL (13.5-17.0); LYMPHOCYTES % (AUTO) 17.8 % (13-45); MEAN CORPUSCULAR HEMOGLOBIN 32.8 pg (27.0-33.4); MEAN CORPUSCULAR HGB CONC 36.1 g/dL (32.0-36.0); MEAN CORPUSCULAR VOLUME 91 fl (80-97); MONOCYTES % (AUTO) 15.9 % (3-13); PLATELET COUNT 277 10^3/uL (150-450); RED BLOOD COUNT 3.85 10^6/uL (4.35-5.55); RED CELL DISTRIBUTION WIDTH 13.9 % (11.5-14.0); SEGMENTED NEUTROPHILS % (AUTO) 64.4 % (42-78); TOTAL CELLS COUNTED % (AUTO) 100 %; WHITE BLOOD COUNT 6.6 10^3/uL (4.0-10.5)
[2019-03-24 05:10] LABS: ANION GAP 9 (5-19); BLOOD UREA NITROGEN 9 mg/dL (7-20); CALCIUM 8.7 mg/dL (8.4-10.2); CARBON DIOXIDE 25 mmol/L (22-30); CHLORIDE 101 mmol/L (98-107); GLUCOSE 112 mg/dL (75-110); POTASSIUM 3.4 mmol/L (3.6-5.0)
[2019-03-24] MEDS: BUDESONIDE NEB 0.5 MG/2 ML AMPUL NEB SCH ×2 (09:06→21:03)
[2019-03-24] MEDS: FAMOTIDINE 20 MG TABLET PO SCH ×2 (10:13→21:21)
[2019-03-24] MEDS: ENOXAPARIN SODIUM INJ 40 MG/0.4 ML DISP.SYRIN SUBCUT SCH (10:13)
[2019-03-24] MEDS: LEVOFLOXACIN 500 MG/D5W RTU 500 MG/100 ML RTUPB IV SCH (10:13)
[2019-03-24] MEDS: GUAIFENESIN 600 MG TABLET.SA PO SCH ×2 (10:13→21:21)
[2019-03-24] MEDS: CEFEPIME HCL 2 GM in DEXTROSE 5%-WATER 50 ML IV SCH ×2 (11:36→21:21)
--- NOTE | 2019-03-24 15:05 | CDI QUERY ---
CDI Query CDI Review: Dear Provider: To better reflect your patients severity of illness, morbidity, and resource utilization Please specify and document in the Progress Notes and Discharge Summary if you are monitoring / treating / evaluating any of the following conditions: Query Clinical indicators Gram negative elena pneumonia Aspiration pneumonia Unable to determine Other Staphylococcus Aureus Bacteremia Gram Positive Cocci Bacteremia Likely Contaminant Unable to determine Other Patient admitted with Pneumonia. Tracheostomy dependent Microbiology 03/20/2019 Tracheal Aspirate Sputum Culture: Gram negative rods Blood Culture: Staphylococcus Aureus Gram positive cocci clusters Meds: IV antibiotic : Levaquin RTU Maxipime The terms probable, suspected, likely, possible or still to be ruled out may be used if you are unable to determine the exact nature of a condition. Thank you, Clinical Documentation Physician Advisors ANTHONY Adam RN, BSN RN Office [phone] Office [phone]
--- NOTE | 2019-03-24 18:42 | PDOC PROGRESS REPORT ---
Subjective Progress Note for:: 03/24/19 Subjective:: Patient report right shoulder and scapular region pain. Continue to cough. Undergoing evaluation for TB. Emphasized to family members need for respiratory protection precaution while visiting. Reason For Visit: PNEUMONIA Physical Exam Vital Signs: Temp Pulse Resp BP Pulse Ox 99.1 F 84 16 135/67 H 93 03/24/19 12:15 03/24/19 16:32 03/24/19 16:32 03/24/19 12:15 03/24/19 16:32 Intake & Output 03/23/19 03/24/19 03/25/19 06:59 06:59 06:59 Intake Total 550 976 150 Balance 550 976 150 Weight 85.5 kg General appearance: PRESENT: no acute distress Head exam: PRESENT: atraumatic, normocephalic Eye exam: PRESENT: conjunctiva pink. ABSENT: scleral icterus Ear exam: PRESENT: normal external ear exam Mouth exam: PRESENT: moist Neck exam: PRESENT: tracheostomy Respiratory exam: PRESENT: clear to auscultation jm Cardiovascular exam: PRESENT: RRR, +S1, +S2. ABSENT: diastolic murmur, rubs, systolic murmur Vascular exam: ABSENT: pallor GI/Abdominal exam: PRESENT: normal bowel sounds, soft. ABSENT: distended, guarding, mass, organolmegaly, rebound, tenderness Extremities exam: ABSENT: pedal edema Neurological exam: PRESENT: alert, awake, oriented to person, oriented to place, oriented to time, oriented to situation, CN II-XII grossly intact. ABSENT: motor sensory deficit Psychiatric exam: PRESENT: appropriate affect, normal mood. ABSENT: homicidal ideation, suicidal ideation Skin exam: PRESENT: dry, warm Results Laboratory Results: 03/24/19 04:38 03/24/19 04:38 03/24/19 03/24/19 04:38 04:38 WBC 6.6 RBC 3.85 L Hgb 12.6 L Hct 34.9 L MCV 91 MCH 32.8 MCHC 36.1 H RDW 13.9 Plt Count 277 Seg Neutrophils % 64.4 Sodium 134.8 L Potassium 3.4 L Chloride 101 Carbon Dioxide 25 Anion Gap 9 BUN 9 Creatinine 0.44 L Est GFR ( Amer) > 60 Glucose 112 H Calcium 8.7 03/20/19 19:37 Blood Blood Culture (PCR) - Final Staphylococcus Aureus 03/20/19 19:37 Blood Blood Culture - Final Staphylococcus Aureus 03/20/19 03/21/19 03/21/19 17:47 05:00 05:00 Creatine Kinase 35 L CK-MB (CK-2) 1.83 Troponin I < 0.012 < 0.012 03/22/19 03/22/19 03/22/19 08:40 08:40 15:00 Creatine Kinase 39 L 30 L CK-MB (CK-2) 2.25 Troponin I < 0.012 03/22/19 03/22/19 03/22/19 15:00 19:39 19:39 Creatine Kinase 40 L CK-MB (CK-2) 2.30 2.62 Troponin I < 0.012 < 0.012 Impressions: Hip X-Ray 03/20/19 00:00 IMPRESSION: No acute findings. Carotid Doppler Study 03/21/19 00:00 IMPRESSION: Findings compatible with less than 50% stenosis of the bilateral internal carotid arteries. Chest X-Ray 03/22/19 00:00 IMPRESSION: AIRSPACE DISEASE IN THE LEFT LUNG BASE, CONCERNING FOR PNEUMONIA. SLIGHTLY WORSE COMPARED TO THE PRIOR STUDY. FOCAL DENSITY IN THE RETROCARDIAC REGION MAY BE RELATED TO INFILTRATE ALTHOUGH CANNOT EXCLUDE UNDERLYING MASS. Chest CT 03/23/19 08:00 IMPRESSION: 1. Extensive areas of pneumonia, most pronounced in the left upper lobe and left lower lobe. Small left parapneumonic effusion with minimal right pneumonia also suggested. Head CT 03/23/19 08:00 IMPRESSION: 1. No acute or suspicious intracranial abnormality. Specifically, no evidence of enhancing lesions to suggest underlying metastases. EVIDENCE OF ACUTE STROKE: NO. Assessment & Plan - Diagnosis (1) Multifocal pneumonia Is this a current diagnosis for this admission?: Yes Plan: Continue IV Cefepime and Levofloxacin coverage. (2) COPD (chronic obstructive pulmonary disease) Qualifiers: COPD type: unspecified COPD Qualified Code(s): J44.9 - Chronic obstructive pulmonary disease, unspecified Is this a current diagnosis for this admission?: Yes Plan: Continue current medication management. (3) Tracheostomy dependence Is this a current diagnosis for this admission?: Yes Plan: Continue current supportive care. (4) Personal history of malignant neoplasm of larynx Is this a current diagnosis for this admission?: Yes Plan: Continue current supportive care. - Time Time Spent with patient: 25-34 minutes Level of Care: IMCU Medications reviewed and adjusted accordingly: Yes Anticipated discharge: Home with Homehealth Within: Other - Inpatient Certification Based on my medical assessment, after consideration of the patient's comorbidities, presenting symptoms, or acuity I expect that the services needed warrant INPATIENT care.: Yes I certify that my determination is in accordance with my understanding of Medicare's requirements for reasonable and necessary INPATIENT services [42 CFR 412.3e].: Yes Medical Necessity: Significant Comorbidiites Make Outpatient Treatment Too Risky, Need Close Monitoring Due to Risk of Patient Decompensation, Need For IV Fluids, Need For Continuous Telemetry Monitoring, Need for IV Antibiotics, Risk of Complication if Not Cared For in Hospital, Risk of Diagnosis Which Will Require Inpatient Eval/Care/Monitoring 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 Follow up on TB evaluation findings.
[2019-03-24] MEDS: OXYCODONE-ACETAMINOPHEN 5-325 MG TABLET PO PRN (22:29)
--- NOTE | 2019-03-24 22:33 | Progress Note ---
Provider Note Provider Note: CARDIOLOGY PROGRESS NOTE by Dr. Mariposa Weber on 03/24/2019. SUBJECTIVE: The patient states he has been having cough productive of slightly yellowish sputum. He has some mild shortness of breath. There is no wheezing. There is no chest pain or discomfort. There is no further episodes of respiratory or cardiac arrest. There is no arrhythmia seen on the monitor. There is no leg edema. There is no PND or orthopnea. Physical EXAMINATION: The patient is a well-built. In no acute distress. Selected Entries 03/24/19 12:15 Temperature 99.1 F Temperature Oral Source Pulse Rate 81 Respiratory 16 Rate Blood Pressure 135/67 H Blood Pressure 89 Mean BP Location Right Arm BP Position Supine O2 Sat by Pulse 100 Oximetry Oxygen Delivery Room Air Method HEAD: Is atraumatic normocephalic. EYES: Pupils are equal round regular reactive light accommodation. Extraocular movements are normal. There is no conjunctival pallor. There is no scleral icterus. EARS: Tympanic membranes are intact. External auditory canals are clear. NOSE: There is no deviated nasal septum. There is no inflammation nasal mucous membrane. MOUTH: Mucous membranes of mouth are moist. Tongue is moist. There is no ulcers. There is no bleeding from the gums. THROAT: There is no redness of the oropharynx. There is no exudates. The patient patient has a tracheostomy stoma which is clean and without signs of any infection. NECK: Is supple. There is no JVD. Carotids are equal there is no bruit there is no lymphadenopathy. There is no accessory muscle respiration use. There is no goiter. Trachea central. SKIN: There is no skin rashes. There is no skin lesions. There is no petechia or ecchymosis. LUNGS: There is diminished air entry prolonged expiration. There is a few dry crackles in the left base. There is a few end expiratory wheezing present bilaterally. There is no rhonchi. There is no rales of CHF. There is hyperresonance on percussion. HEART: S1-S2 is heard. There is no S3 gallop. There is no S4 gallop. There is systolic murmur left sternal border and the apex there is no rub. ABDOMEN: Soft. Nontender. There is no hepatosplenomegaly bowel sounds well heard. EXTREMITIES: Femorals is well felt. There is no femoral bruits. There is no leg edema there is no pedal edema. There is no DVT or cellulitis. There is no calf tenderness. There is no cyanosis or clubbing. VENOUS: The patient is conscious awake alert oriented x3 with no focal deficits. PSYCHIATRIC: Patient judgment insight are intact his affect is normal. Labs- All tests 24 hr 03/23/19 03/24/19 03/24/19 05:22 04:38 04:38 WBC 6.6 RBC 3.85 L Hgb 12.6 L Hct 34.9 L MCV 91 MCH 32.8 MCHC 36.1 H RDW 13.9 Plt Count 277 Lymph % (Auto) 17.8 [place] % (Auto) 15.9 H Eos % (Auto) 1.4 Baso % (Auto) 0.5 Absolute Neuts (auto) 4.2 Absolute Lymphs (auto) 1.2 Absolute Monos (auto) 1.1 Absolute Eos (auto) 0.1 Absolute Basos (auto) 0.0 Seg Neutrophils % 64.4 Sodium 134.8 L Potassium 3.4 L Chloride 101 Carbon Dioxide 25 Anion Gap 9 BUN 9 Creatinine 0.44 L Est GFR ( Amer) > 60 Est GFR (MDRD) Non-Af > 60 Glucose 112 H Calcium 8.7 AFB Smear NO ACID FAST BACILLI Hip X-Ray 03/20/19 00:00 IMPRESSION: No acute findings. Chest X-Ray 03/20/19 16:57 IMPRESSION: Left lower lobe pneumonia. Carotid Doppler Study 03/21/19 00:00 IMPRESSION: Findings compatible with less than 50% stenosis of the bilateral internal carotid arteries. Chest X-Ray 03/22/19 00:00 IMPRESSION: AIRSPACE DISEASE IN THE LEFT LUNG BASE, CONCERNING FOR PNEUMONIA. SLIGHTLY WORSE COMPARED TO THE PRIOR STUDY. FOCAL DENSITY IN THE RETROCARDIAC REGION MAY BE RELATED TO INFILTRATE ALTHOUGH CANNOT EXCLUDE UNDERLYING MASS. Chest CT 03/23/19 08:00 IMPRESSION: 1. Extensive areas of pneumonia, most pronounced in the left upper lobe and left lower lobe. Small left parapneumonic effusion with minimal right pneumonia also suggested. Head CT 03/23/19 08:00 IMPRESSION: 1. No acute or suspicious intracranial abnormality. Specifically, no evidence of enhancing lesions to suggest underlying metastases. EVIDENCE OF ACUTE STROKE: NO. IMPRESSION/RECOMMENDATION: 1. Acute respiratory distress this morning due to tracheostomy or loss still obstruction due to a semi-fleshy inspissated mass. This has resolved after the patient expectorated the mass. The patient has a tracheostomy tube in situ. 2. History of syncope: Etiology not clear. Await records from [facility]. The patient most likely will require a 30-day event monitor. Still await records from [facility]. 3. Left lower lobe pneumonia: Continue antibiotics. 4. History of chronic obstructive pulmonary disease: No acute exacerbation. Continue current treatment. 5. History of hypertension: Blood pressure well controlled. 6. History of throat cancer status post tracheostomy: Patient claims that there is no recurrence of the throat cancer. Medications reviewed. Medical regimen and management plan discussed with attending provider on the case. Medical decision making is a moderate complexity. 35 minutes spent as patient more than 50% of time spent in direct patient care. Will follow.
[2019-03-25] MEDS: IPRATROPIUM/ALBUTEROL 0.5-2.5 MG/3 ML AMPUL NEB SCH ×6 (00:05→19:32)
[2019-03-25 05:58] LABS: ABSOLUTE BASOPHILS # (AUTO) 0.1 10^3/uL (0.0-0.2); ABSOLUTE EOSINOPHILS # (AUTO) 0.2 10^3/uL (0.0-0.6); ABSOLUTE LYMPHOCYTES (AUTO) 1.3 10^3/uL (0.5-4.7); ABSOLUTE MONOCYTES (AUTO) 0.9 10^3/uL (0.1-1.4); ABSOLUTE NEUT (AUTO) 2.9 10^3/uL (1.7-8.2); BASOPHILS % (AUTO) 1.3 % (0-2); EOSINOPHILS % (AUTO) 2.9 % (0-6); HEMATOCRIT 32.9 % (37.9-51.0); HEMOGLOBIN 11.6 g/dL (13.5-17.0); LYMPHOCYTES % (AUTO) 24.5 % (13-45); MEAN CORPUSCULAR HEMOGLOBIN 32.4 pg (27.0-33.4); MEAN CORPUSCULAR HGB CONC 35.4 g/dL (32.0-36.0); MEAN CORPUSCULAR VOLUME 92 fl (80-97); MONOCYTES % (AUTO) 17.3 % (3-13); PLATELET COUNT 314 10^3/uL (150-450); RED BLOOD COUNT 3.59 10^6/uL (4.35-5.55); RED CELL DISTRIBUTION WIDTH 13.4 % (11.5-14.0); TOTAL CELLS COUNTED % (AUTO) 100 %; WHITE BLOOD COUNT 5.3 10^3/uL (4.0-10.5)
[2019-03-25 06:18] LABS: ANION GAP 7 (5-19); BLOOD UREA NITROGEN 9 mg/dL (7-20); CALCIUM 8.6 mg/dL (8.4-10.2); CARBON DIOXIDE 29 mmol/L (22-30); CHLORIDE 100 mmol/L (98-107); GLUCOSE 103 mg/dL (75-110); POTASSIUM 3.5 mmol/L (3.6-5.0)
[2019-03-25] MEDS: BUDESONIDE NEB 0.5 MG/2 ML AMPUL NEB SCH ×2 (08:50→19:32)
[2019-03-25] MEDS: LEVOFLOXACIN 500 MG/D5W RTU 500 MG/100 ML RTUPB IV SCH (10:31)
[2019-03-25] MEDS: FAMOTIDINE 20 MG TABLET PO SCH ×2 (10:32→21:50)
[2019-03-25] MEDS: ENOXAPARIN SODIUM INJ 40 MG/0.4 ML DISP.SYRIN SUBCUT SCH (10:32)
[2019-03-25] MEDS: GUAIFENESIN 600 MG TABLET.SA PO SCH ×2 (10:32→21:51)
[2019-03-25] MEDS: OXYCODONE-ACETAMINOPHEN 5-325 MG TABLET PO PRN (10:38)
[2019-03-25] MEDS: CEFEPIME HCL 2 GM in DEXTROSE 5%-WATER 50 ML IV SCH ×2 (12:02→21:50)
--- NOTE | 2019-03-25 14:29 | Progress Note ---
Provider Note Provider Note: CARDIOLOGY PROGRESS NOTE by Dr. Mariposa Bansal on 03/25/2019. SUBJECTIVE: The patient states that he has cough which is productive of white phlegm. He periodically suctions his ET. He denies any chest pain or discomfort. There is no shortness of breath. There is no PND orthopnea. There is no arrhythmia seen on the monitor. There is no TIA CVA symptoms. PHYSICAL EXAMINATION: The patient is a frail build in no acute distress Selected Entries PHYSICAL EXAMINATION: The patient is well-built. In no acute distress 03/25/19 11:02 Temperature 97.5 F Temperature Oral Source Pulse Rate 69 Respiratory 16 Rate Blood Pressure 123/66 Blood Pressure 85 Mean BP Location Left Arm BP Position Sitting Oxygen Delivery Room Air Method HEAD: Is atraumatic normocephalic. EYES: Pupils are equal round regular reactive light accommodation. Extraocular movements are normal. There is no conjunctival pallor. There is no scleral icterus. EARS: Tympanic membranes are intact. External auditory canals are clear. NOSE: There is no deviated nasal septum. There is no inflammation nasal mucous membrane. MOUTH: Mucous membranes of mouth are moist. Tongue is moist. There is no ulcers. There is no bleeding from the gums. THROAT: There is no redness of the oropharynx. There is no exudates. The patient patient has a tracheostomy stoma which is clean and without signs of any infection. NECK: Is supple. There is no JVD. Carotids are equal there is no bruit there is no lymphadenopathy. There is no accessory muscle respiration use. There is no goiter. Trachea central. SKIN: There is no skin rashes. There is no skin lesions. There is no petechia or ecchymosis. LUNGS: There is diminished air entry prolonged expiration. There is a few dry crackles in the left base. There is a few end expiratory wheezing present bilaterally. There is no rhonchi. There is no rales of CHF. There is hyperresonance on percussion. HEART: S1-S2 is heard. There is no S3 gallop. There is no S4 gallop. There is systolic murmur left sternal border and the apex there is no rub. ABDOMEN: Soft. Nontender. There is no hepatosplenomegaly bowel sounds well heard. EXTREMITIES: Femorals is well felt. There is no femoral bruits. There is no leg edema there is no pedal edema. There is no DVT or cellulitis. There is no calf tenderness. There is no cyanosis or clubbing. 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 PSYCHIATRIC: Patient judgment insight are intact his affect is normal. Labs- All tests 24 hr 03/23/19 03/25/19 03/25/19 05:22 05:13 05:13 WBC 5.3 RBC 3.59 L Hgb 11.6 L Hct 32.9 L MCV 92 MCH 32.4 MCHC 35.4 RDW 13.4 Plt Count 314 Lymph % (Auto) 24.5 [place] % (Auto) 17.3 H Eos % (Auto) 2.9 Baso % (Auto) 1.3 Absolute Neuts (auto) 2.9 Absolute Lymphs (auto) 1.3 Absolute Monos (auto) 0.9 Absolute Eos (auto) 0.2 Absolute Basos (auto) 0.1 Seg Neutrophils % 54.0 Sodium 135.9 L Potassium 3.5 L Chloride 100 Carbon Dioxide 29 Anion Gap 7 BUN 9 Creatinine 0.46 L Est GFR ( Amer) > 60 Est GFR (MDRD) Non-Af > 60 Glucose 103 Calcium 8.6 AFB Smear NO ACID FAST BACILLI Hip X-Ray 03/20/19 00:00 IMPRESSION: No acute findings. Chest X-Ray 03/20/19 16:57 IMPRESSION: Left lower lobe pneumonia. Carotid Doppler Study 03/21/19 00:00 IMPRESSION: Findings compatible with less than 50% stenosis of the bilateral internal carotid arteries. Chest X-Ray 03/22/19 00:00 IMPRESSION: AIRSPACE DISEASE IN THE LEFT LUNG BASE, CONCERNING FOR PNEUMONIA. SLIGHTLY WORSE COMPARED TO THE PRIOR STUDY. FOCAL DENSITY IN THE RETROCARDIAC REGION MAY BE RELATED TO INFILTRATE ALTHOUGH CANNOT EXCLUDE UNDERLYING MASS. Chest CT 03/23/19 08:00 IMPRESSION: 1. Extensive areas of pneumonia, most pronounced in the left upper lobe and left lower lobe. Small left parapneumonic effusion with minimal right pneumonia also suggested. Head CT 03/23/19 08:00 IMPRESSION: 1. No acute or suspicious intracranial abnormality. Specifically, no evidence of enhancing lesions to suggest underlying metastases. EVIDENCE OF ACUTE STROKE: NO. IMPRESSION/RECOMMENDATION: 1. Acute respiratory distress this morning due to tracheostomy or loss still obstruction due to a semi-fleshy inspissated mass. This has resolved after the patient expectorated the mass. The patient has a tracheostomy tube in situ. 2. History of syncope: Etiology not clear. Await records from [facility]. The patient most likely will require a 30-day event monitor. Still await records from [facility]. 3. Left lower lobe pneumonia: Continue antibiotics. 4. History of chronic obstructive pulmonary disease: No acute exacerbation. Continue current treatment. 5. History of hypertension: Blood pressure well controlled. 6. History of throat cancer status post tracheostomy: Patient claims that there is no recurrence of the throat cancer. Medications reviewed. Medical regimen and management plan discussed with attending provider on the case. Medical decision making is a moderate complexity. 35 minutes spent as patient more than 50% of time spent in direct patient care. Will follow.
--- NOTE | 2019-03-25 16:45 | PDOC PROGRESS REPORT ---
Subjective Progress Note for:: 03/25/19 Subjective:: Patient report right shoulder and scapular region pain. Continue to cough with minimal expectoration via his tracheostomy. No fever or chills. Reported running nose and requested for Cetirizine as his home allergy medication. Reason For Visit: PNEUMONIA Physical Exam Vital Signs: Temp Pulse Resp BP Pulse Ox 97.5 F 78 16 123/66 94 03/25/19 11:02 03/25/19 15:25 03/25/19 15:25 03/25/19 11:02 03/25/19 15:25 Intake & Output 03/24/19 03/25/19 03/26/19 06:59 06:59 06:59 Intake Total 098 658 3830 Balance 952 688 7882 Weight 84.7 kg Physical Exam: General appearance: PRESENT: no acute distress Head exam: PRESENT: atraumatic, normocephalic Eye exam: PRESENT: conjunctiva pink. ABSENT: pallor, scleral icterus Ear exam: PRESENT: normal external ear exam Mouth exam: PRESENT: moist Neck exam: PRESENT: tracheostomy Respiratory exam: PRESENT: clear to auscultation jm Cardiovascular exam: PRESENT: RRR, +S1, +S2. ABSENT: diastolic murmur, rubs, systolic murmur GI/Abdominal exam: PRESENT: normal bowel sounds, soft. ABSENT: distended, guarding, mass, organomegaly, rebound, tenderness Extremities exam: ABSENT: pedal edema Neurological exam: PRESENT: alert, awake, oriented to person, oriented to place, oriented to time, oriented to situation, CN II-XII grossly intact. ABSENT: motor sensory deficit Psychiatric exam: PRESENT: appropriate affect, normal mood. ABSENT: homicidal ideation, suicidal ideation Skin exam: PRESENT: dry, warm Results Laboratory Results: 03/25/19 05:13 03/25/19 05:13 03/25/19 03/25/19 05:13 05:13 WBC 5.3 RBC 3.59 L Hgb 11.6 L Hct 32.9 L MCV 92 MCH 32.4 MCHC 35.4 RDW 13.4 Plt Count 314 Seg Neutrophils % 54.0 Sodium 135.9 L Potassium 3.5 L Chloride 100 Carbon Dioxide 29 Anion Gap 7 BUN 9 Creatinine 0.46 L Est GFR ( Amer) > 60 Glucose 103 Calcium 8.6 03/23/19 07:10 Sputum AFB Smear Concentration - Final 03/23/19 07:10 Sputum Acid Fast Bacilli Smear - Final 03/23/19 07:10 Sputum Gram Stain - Final 03/23/19 07:10 Sputum Sputum Culture - Final C.albicans/C.dubliniensis Normal Lynne Absent 03/20/19 03/21/19 03/21/19 17:47 05:00 05:00 Creatine Kinase 35 L CK-MB (CK-2) 1.83 Troponin I < 0.012 < 0.012 03/22/19 03/22/19 03/22/19 08:40 08:40 15:00 Creatine Kinase 39 L 30 L CK-MB (CK-2) 2.25 Troponin I < 0.012 03/22/19 03/22/19 03/22/19 15:00 19:39 19:39 Creatine Kinase 40 L CK-MB (CK-2) 2.30 2.62 Troponin I < 0.012 < 0.012 Impressions: Hip X-Ray 03/20/19 00:00 IMPRESSION: No acute findings. Carotid Doppler Study 03/21/19 00:00 IMPRESSION: Findings compatible with less than 50% stenosis of the bilateral internal carotid arteries. Chest X-Ray 03/22/19 00:00 IMPRESSION: AIRSPACE DISEASE IN THE LEFT LUNG BASE, CONCERNING FOR PNEUMONIA. SLIGHTLY WORSE COMPARED TO THE PRIOR STUDY. FOCAL DENSITY IN THE RETROCARDIAC REGION MAY BE RELATED TO INFILTRATE ALTHOUGH CANNOT EXCLUDE UNDERLYING MASS. Chest CT 03/23/19 08:00 IMPRESSION: 1. Extensive areas of pneumonia, most pronounced in the left upper lobe and left lower lobe. Small left parapneumonic effusion with minimal right pneumonia also suggested. Head CT 03/23/19 08:00 IMPRESSION: 1. No acute or suspicious intracranial abnormality. Specifically, no evidence of enhancing lesions to suggest underlying metastases. EVIDENCE OF ACUTE STROKE: NO. Assessment & Plan - Diagnosis (1) Multifocal pneumonia Is this a current diagnosis for this admission?: Yes (2) COPD (chronic obstructive pulmonary disease) Qualifiers: COPD type: unspecified COPD Qualified Code(s): J44.9 - Chronic obstructive pulmonary disease, unspecified Is this a current diagnosis for this admission?: Yes (3) Tracheostomy dependence Is this a current diagnosis for this admission?: Yes (4) Personal history of malignant neoplasm of larynx Is this a current diagnosis for this admission?: Yes - Time Time Spent with patient: 25-34 minutes Level of Care: IMCU Medications reviewed and adjusted accordingly: Yes Anticipated discharge: Home with Homehealth Within: Other - Inpatient Certification Based on my medical assessment, after consideration of the patient's comorbidities, presenting symptoms, or acuity I expect that the services needed warrant INPATIENT care.: Yes I certify that my determination is in accordance with my understanding of Medicare's requirements for reasonable and necessary INPATIENT services [42 CFR 412.3e].: Yes Medical Necessity: Significant Comorbidiites Make Outpatient Treatment Too Risky, Need Close Monitoring Due to Risk of Patient Decompensation, Need For IV Fluids, Need For Continuous Telemetry Monitoring, Risk of Complication if Not Cared For in Hospital, Risk of Diagnosis Which Will Require Inpatient Maureen l/Care/Monitoring Post 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 Start on Loratadine as per hospital formulary for H2 gordon for allergy management
[2019-03-26] MEDS: IPRATROPIUM/ALBUTEROL 0.5-2.5 MG/3 ML AMPUL NEB SCH ×6 (00:31→21:01)
[2019-03-26 05:22] LABS: ABSOLUTE BASOPHILS # (AUTO) 0.1 10^3/uL (0.0-0.2); ABSOLUTE EOSINOPHILS # (AUTO) 0.2 10^3/uL (0.0-0.6); ABSOLUTE LYMPHOCYTES (AUTO) 1.5 10^3/uL (0.5-4.7); ABSOLUTE MONOCYTES (AUTO) 0.7 10^3/uL (0.1-1.4); ABSOLUTE NEUT (AUTO) 3.6 10^3/uL (1.7-8.2); EOSINOPHILS % (AUTO) 3.6 % (0-6); HEMATOCRIT 34.8 % (37.9-51.0); HEMOGLOBIN 12.2 g/dL (13.5-17.0); LYMPHOCYTES % (AUTO) 24.2 % (13-45); MEAN CORPUSCULAR HEMOGLOBIN 31.8 pg (27.0-33.4); MEAN CORPUSCULAR HGB CONC 34.9 g/dL (32.0-36.0); MEAN CORPUSCULAR VOLUME 91 fl (80-97); MONOCYTES % (AUTO) 11.1 % (3-13); PLATELET COUNT 378 10^3/uL (150-450); RED BLOOD COUNT 3.82 10^6/uL (4.35-5.55); RED CELL DISTRIBUTION WIDTH 13.6 % (11.5-14.0); SEGMENTED NEUTROPHILS % (AUTO) 60.1 % (42-78); TOTAL CELLS COUNTED % (AUTO) 100 %; WHITE BLOOD COUNT 6.1 10^3/uL (4.0-10.5)
[2019-03-26 05:40] LABS: ANION GAP 6 (5-19); BLOOD UREA NITROGEN 10 mg/dL (7-20); CALCIUM 8.6 mg/dL (8.4-10.2); CARBON DIOXIDE 29 mmol/L (22-30); CHLORIDE 101 mmol/L (98-107); GLUCOSE 111 mg/dL (75-110); POTASSIUM 3.7 mmol/L (3.6-5.0)
[2019-03-26] MEDS: BUDESONIDE NEB 0.5 MG/2 ML AMPUL NEB SCH ×2 (08:40→21:01)
--- NOTE | 2019-03-26 09:08 | PDOC PROGRESS REPORT ---
Subjective Progress Note for:: 03/26/19 Subjective:: Patient is currently doing well Except patient was complained of right shoulder pain Patient other than that denied any chest pain no short of breath Reason For Visit: PNEUMONIA Physical Exam Vital Signs: Temp Pulse Resp BP Pulse Ox 99.1 F 70 16 129/68 H 93 03/26/19 08:30 03/26/19 08:30 03/26/19 08:30 03/26/19 08:30 03/26/19 08:30 Intake & Output 03/25/19 03/26/19 03/27/19 06:59 06:59 06:59 Intake Total 680 2120 Balance 680 2120 Weight 84.7 kg 89.9 kg General appearance: PRESENT: no acute distress, well-developed, well-nourished Head exam: PRESENT: atraumatic, normocephalic Eye exam: PRESENT: conjunctiva pink, EOMI, PERRLA. ABSENT: scleral icterus Ear exam: PRESENT: normal external ear exam Mouth exam: PRESENT: moist, tongue midline Neck exam: PRESENT: full ROM. ABSENT: carotid bruit, JVD, lymphadenopathy, thyromegaly Respiratory exam: PRESENT: clear to auscultation jm Cardiovascular exam: PRESENT: RRR. ABSENT: diastolic murmur, rubs, systolic murmur Pulses: PRESENT: normal dorsalis pedis pul, +2 pedal pulses bilateral Vascular exam: PRESENT: normal capillary refill GI/Abdominal exam: PRESENT: normal bowel sounds, soft. ABSENT: distended, guarding, mass, organolmegaly, rebound, tenderness Rectal exam: PRESENT: deferred Extremities exam: ABSENT: pedal edema Musculoskeletal exam: PRESENT: ambulatory Neurological exam: PRESENT: alert, awake, oriented to person, oriented to place, oriented to time, oriented to situation, CN II-XII grossly intact. ABSENT: motor sensory deficit Psychiatric exam: PRESENT: appropriate affect, normal mood. ABSENT: homicidal ideation, suicidal ideation Skin exam: PRESENT: dry, intact, warm. ABSENT: cyanosis, rash Results Laboratory Results: 03/26/19 04:21 03/26/19 04:21 03/26/19 03/26/19 04:21 04:21 WBC 6.1 RBC 3.82 L Hgb 12.2 L Hct 34.8 L MCV 91 MCH 31.8 MCHC 34.9 RDW 13.6 Plt Count 378 Seg Neutrophils % 60.1 Sodium 136.3 L Potassium 3.7 Chloride 101 Carbon Dioxide 29 Anion Gap 6 BUN 10 Creatinine 0.47 L Est GFR ( Amer) > 60 Glucose 111 H Calcium 8.6 03/20/19 17:47 Blood Blood Culture - Final NO GROWTH IN 5 DAYS 03/23/19 07:10 Sputum AFB Smear Concentration - Final 03/23/19 07:10 Sputum Acid Fast Bacilli Smear - Final 03/20/19 03/21/19 03/21/19 17:47 05:00 05:00 Creatine Kinase 35 L CK-MB (CK-2) 1.83 Troponin I < 0.012 < 0.012 03/22/19 03/22/19 03/22/19 08:40 08:40 15:00 Creatine Kinase 39 L 30 L CK-MB (CK-2) 2.25 Troponin I < 0.012 03/22/19 03/22/19 03/22/19 15:00 19:39 19:39 Creatine Kinase 40 L CK-MB (CK-2) 2.30 2.62 Troponin I < 0.012 < 0.012 Impressions: Hip X-Ray 03/20/19 00:00 IMPRESSION: No acute findings. Carotid Doppler Study 03/21/19 00:00 IMPRESSION: Findings compatible with less than 50% stenosis of the bilateral internal carotid arteries. Chest X-Ray 03/22/19 00:00 IMPRESSION: AIRSPACE DISEASE IN THE LEFT LUNG BASE, CONCERNING FOR PNEUMONIA. SLIGHTLY WORSE COMPARED TO THE PRIOR STUDY. FOCAL DENSITY IN THE RETROCARDIAC REGION MAY BE RELATED TO INFILTRATE ALTHOUGH CANNOT EXCLUDE UNDERLYING MASS. Chest CT 03/23/19 08:00 IMPRESSION: 1. Extensive areas of pneumonia, most pronounced in the left upper lobe and left lower lobe. Small left parapneumonic effusion with minimal right pneumonia also suggested. Head CT 03/23/19 08:00 IMPRESSION: 1. No acute or suspicious intracranial abnormality. Specifically, no evidence of enhancing lesions to suggest underlying metastases. EVIDENCE OF ACUTE STROKE: NO. Assessment & Plan - Diagnosis (1) Pneumonia Qualifiers: Pneumonia type: due to unspecified organism Laterality: left Lung location: lower lobe of lung Qualified Code(s): J18.9 - Pneumonia, unspecified organism Is this a current diagnosis for this admission?: Yes Plan: Continues to IV antibiotics as the organism is sensitive to cefepime and Levaquin both (2) COPD (chronic obstructive pulmonary disease) Qualifiers: COPD type: unspecified COPD Qualified Code(s): J44.9 - Chronic obstructive pulmonary disease, unspecified Is this a current diagnosis for this admission?: Yes (3) Laryngeal cancer Is this a current diagnosis for this admission?: Yes (4) Tracheostomy dependence Is this a current diagnosis for this admission?: Yes (5) Syncopal episodes Qualifiers: Syncope type: unspecified Qualified Code(s): R55 - Syncope and collapse Is this a current diagnosis for this admission?: Yes - Time Time Spent with patient: 15-24 minutes Level of Care: IMCU Medications reviewed and adjusted accordingly: Yes Anticipated discharge: Home with Homehealth Within: Other - Plan Summary Plan Summary: Continues IV antibiotics discussed with the family and the bedside regarding the patient's current conditions
[2019-03-26] MEDS: ENOXAPARIN SODIUM INJ 40 MG/0.4 ML DISP.SYRIN SUBCUT SCH (09:30)
[2019-03-26] MEDS: GUAIFENESIN 600 MG TABLET.SA PO SCH ×2 (09:30→21:21)
[2019-03-26] MEDS: FAMOTIDINE 20 MG TABLET PO SCH ×2 (09:30→21:21)
[2019-03-26] MEDS: LORATADINE 10 MG TABLET PO SCH (09:30)
[2019-03-26] MEDS: LEVOFLOXACIN 500 MG/D5W RTU 500 MG/100 ML RTUPB IV SCH (09:32)
--- NOTE | 2019-03-26 10:02 | RADIOLOGY REPORT (SQ) ---
EXAM DESCRIPTION: SHOULDER RIGHT 2 OR MORE VIEWS COMPLETED DATE/TIME: 03/26/2019 9:50 am REASON FOR STUDY: right shoulder pain COMPARISON: None. NUMBER OF VIEWS: Three views. TECHNIQUE: Internal rotation, external rotation, and Y view images acquired of the right shoulder. LIMITATIONS: None. FINDINGS: MINERALIZATION: Osteopenia. BONES: No acute fracture. JOINTS: Osteoarthrosis of the acromioclavicular joint. There is no dislocation of the glenohumeral o r acromioclavicular joints. VISUALIZED LUNGS AND RIBS: No pneumothorax or rib fracture. SOFT TISSUES: Surgical clips that project above the thoracic inlet. OTHER: No other finding. IMPRESSION: No acute fracture or dislocation of the right shoulder. TECHNICAL DOCUMENTATION: JOB ID: [id number] 2010 [employer]- All Rights Reserved Reading location - IP/workstation name: [email or web address]
[2019-03-26] MEDS: CEFEPIME HCL 2 GM in DEXTROSE 5%-WATER 50 ML IV SCH ×2 (11:17→21:21)
--- NOTE | 2019-03-26 16:16 | Progress Note ---
Provider Note Provider Note: CARDIOLOGY PROGRESS NOTE by Dr. Mariposa Bansal on 03/26/2019. Subjective: The patient still continues to wheeze. He says he has a cough and brings up clear sputum. He has some mild shortness of breath. There is no chest pain or discomfort. There is some mild orthopnea but no PND. There is no leg edema. There is no arrhythmia seen on the monitor. He complains of pain in the right shoulder. Shoulder x-ray is negative PHYSICAL EXAMINATION: The patient is well-built. In no major distress. Selected Entries 03/26/19 16:35 Temperature 99.0 F Temperature Oral Source Pulse Rate 72 Respiratory 20 Rate Blood Pressure 133/63 H Blood Pressure 86 Mean BP Location Left Arm BP Position Sitting O2 Sat by Pulse 94 Oximetry Oxygen Delivery Room Air Method HEAD: Is atraumatic normocephalic. EYES: Pupils are equal round regular reactive light accommodation. Extraocular movements are normal. There is no conjunctival pallor. There is no scleral icterus. EARS: Tympanic membranes are intact. External auditory canals are clear. NOSE: There is no deviated nasal septum. There is no inflammation nasal mucous membrane. MOUTH: Mucous membranes of mouth are moist. Tongue is moist. There is no ulcers. There is no bleeding from the gums. THROAT: There is no redness of the oropharynx. There is no exudates. The patient patient has a tracheostomy stoma which is clean and without signs of any infection. NECK: Is supple. There is no JVD. Carotids are equal there is no bruit there is no lymphadenopathy. There is no accessory muscle respiration use. There is no goiter. Trachea central. SKIN: There is no skin rashes. There is no skin lesions. There is no petechia or ecchymosis. LUNGS: There is diminished air entry prolonged expiration. There is a few dry crackles in the left base. There still is a few end expiratory wheezing present bilaterally. There is no rhonchi. There is no rales of CHF. There is hyperresonance on percussion. HEART: S1-S2 is heard. There is no S3 gallop. There is no S4 gallop. There is systolic murmur left sternal border and the apex there is no rub. ABDOMEN: Soft. Nontender. There is no hepatosplenomegaly bowel sounds well heard. EXTREMITIES: Femorals is well felt. There is no femoral bruits. There is no leg edema there is no pedal edema. There is no DVT or cellulitis. There is no calf tenderness. There is no cyanosis or clubbing. 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 PSYCHIATRIC: Patient judgment insight are intact his affect is normal. Labs- All tests 24 hr 03/26/19 03/26/19 04:21 04:21 WBC 6.1 RBC 3.82 L Hgb 12.2 L Hct 34.8 L MCV 91 MCH 31.8 MCHC 34.9 RDW 13.6 Plt Count 378 Lymph % (Auto) 24.2 [place] % (Auto) 11.1 Eos % (Auto) 3.6 Baso % (Auto) 1.0 Absolute Neuts (auto) 3.6 Absolute Lymphs (auto) 1.5 Absolute Monos (auto) 0.7 Absolute Eos (auto) 0.2 Absolute Basos (auto) 0.1 Seg Neutrophils % 60.1 Sodium 136.3 L Potassium 3.7 Chloride 101 Carbon Dioxide 29 Anion Gap 6 BUN 10 Creatinine 0.47 L Est GFR ( Amer) > 60 Est GFR (MDRD) Non-Af > 60 Glucose 111 H Calcium 8.6 Hip X-Ray 03/20/19 00:00 IMPRESSION: No acute findings. Chest X-Ray 03/20/19 16:57 IMPRESSION: Left lower lobe pneumonia. Carotid Doppler Study 03/21/19 00:00 IMPRESSION: Findings compatible with less than 50% stenosis of the bilateral internal carotid arteries. Chest X-Ray 03/22/19 00:00 IMPRESSION: AIRSPACE DISEASE IN THE LEFT LUNG BASE, CONCERNING FOR PNEUMONIA. SLIGHTLY WORSE COMPARED TO THE PRIOR STUDY. FOCAL DENSITY IN THE RETROCARDIAC REGION MAY BE RELATED TO INFILTRATE ALTHOUGH CANNOT EXCLUDE UNDERLYING MASS. Chest CT 03/23/19 08:00 IMPRESSION: 1. Extensive areas of pneumonia, most pronounced in the left upper lobe and left lower lobe. Small left parapneumonic effusion with minimal right pneumonia also suggested. Head CT 03/23/19 08:00 IMPRESSION: 1. No acute or suspicious intracranial abnormality. Specifically, no evidence of enhancing lesions to suggest underlying metastases. EVIDENCE OF ACUTE STROKE: NO. Shoulder X-Ray 03/26/19 00:00 IMPRESSION: No acute fracture or dislocation of the right shoulder. IMPRESSION/RECOMMENDATION: 1. Acute respiratory distress this morning due to tracheostomy or loss still obstruction due to a semi-fleshy inspissated mass. This has resolved after the patient expectorated the mass. The patient has a tracheostomy tube in situ. 2. History of syncope: Etiology not clear. Await records from [facility]. The patient most likely will require a 30-day event monitor. Still await records from [facility]. 3. Left lower lobe pneumonia: Continue antibiotics. 4. History of chronic obstructive pulmonary disease: No acute exacerbation. Continue current treatment. 5. History of hypertension: Blood pressure well controlled. 6. History of throat cancer status post tracheostomy: Patient claims that there is no recurrence of the throat cancer. Medications reviewed. Medical regimen and management plan discussed with attending provider on the case. Medical decision making is a moderate complexity. 35 minutes spent as patient more than 50% of time spent in direct patient care. Will follow.
[2019-03-27] MEDS: IPRATROPIUM/ALBUTEROL 0.5-2.5 MG/3 ML AMPUL NEB SCH ×6 (00:48→20:56)
[2019-03-27 05:48] LABS: ABSOLUTE EOSINOPHILS # (AUTO) 0.2 10^3/uL (0.0-0.6); ABSOLUTE LYMPHOCYTES (AUTO) 1.1 10^3/uL (0.5-4.7); ABSOLUTE MONOCYTES (AUTO) 0.5 10^3/uL (0.1-1.4); ABSOLUTE NEUT (AUTO) 2.8 10^3/uL (1.7-8.2); BASOPHILS % (AUTO) 0.8 % (0-2); EOSINOPHILS % (AUTO) 3.5 % (0-6); HEMOGLOBIN 12.4 g/dL (13.5-17.0); LYMPHOCYTES % (AUTO) 23.7 % (13-45); MEAN CORPUSCULAR HEMOGLOBIN 32.2 pg (27.0-33.4); MEAN CORPUSCULAR HGB CONC 35.5 g/dL (32.0-36.0); MEAN CORPUSCULAR VOLUME 91 fl (80-97); MONOCYTES % (AUTO) 11.5 % (3-13); PLATELET COUNT 396 10^3/uL (150-450); RED BLOOD COUNT 3.86 10^6/uL (4.35-5.55); RED CELL DISTRIBUTION WIDTH 13.7 % (11.5-14.0); SEGMENTED NEUTROPHILS % (AUTO) 60.5 % (42-78); TOTAL CELLS COUNTED % (AUTO) 100 %; WHITE BLOOD COUNT 4.7 10^3/uL (4.0-10.5)
[2019-03-27 06:20] LABS: ANION GAP 5 (5-19); BLOOD UREA NITROGEN 9 mg/dL (7-20); CALCIUM 8.6 mg/dL (8.4-10.2); CARBON DIOXIDE 29 mmol/L (22-30); CHLORIDE 102 mmol/L (98-107); GLUCOSE 102 mg/dL (75-110)
[2019-03-27] MEDS: BUDESONIDE NEB 0.5 MG/2 ML AMPUL NEB SCH ×2 (09:07→20:56)
[2019-03-27] MEDS: FAMOTIDINE 20 MG TABLET PO SCH ×2 (09:50→21:35)
[2019-03-27] MEDS: LORATADINE 10 MG TABLET PO SCH (09:50)
[2019-03-27] MEDS: GUAIFENESIN 600 MG TABLET.SA PO SCH ×2 (09:50→21:35)
[2019-03-27] MEDS: CEFEPIME HCL 2 GM in DEXTROSE 5%-WATER 50 ML IV SCH ×2 (09:52→21:35)
[2019-03-27] MEDS: ENOXAPARIN SODIUM INJ 40 MG/0.4 ML DISP.SYRIN SUBCUT SCH (09:52)
--- NOTE | 2019-03-27 09:58 | PDOC PROGRESS REPORT ---
Subjective Progress Note for:: 03/27/19 Subjective:: Patient is currently doing well Except patient was complained of right shoulder pain Patient other than that denied any chest pain no short of breath Reason For Visit: PNEUMONIA Physical Exam Vital Signs: Temp Pulse Resp BP Pulse Ox 99.4 F 77 16 135/81 H 96 03/27/19 07:50 03/27/19 09:09 03/27/19 09:09 03/27/19 07:50 03/27/19 09:09 Intake & Output 03/26/19 03/27/19 03/28/19 06:59 06:59 06:59 Intake Total 2120 1290 Balance 2120 1290 Weight 89.9 kg 83.9 kg General appearance: PRESENT: no acute distress, well-developed, well-nourished Head exam: PRESENT: atraumatic, normocephalic Eye exam: PRESENT: conjunctiva pink, EOMI, PERRLA. ABSENT: scleral icterus Ear exam: PRESENT: normal external ear exam Mouth exam: PRESENT: moist, tongue midline Neck exam: PRESENT: full ROM. ABSENT: carotid bruit, JVD, lymphadenopathy, thyromegaly Respiratory exam: PRESENT: clear to auscultation jm Cardiovascular exam: PRESENT: RRR. ABSENT: diastolic murmur, rubs, systolic murmur Pulses: PRESENT: normal dorsalis pedis pul, +2 pedal pulses bilateral Vascular exam: PRESENT: normal capillary refill GI/Abdominal exam: PRESENT: normal bowel sounds, soft. ABSENT: distended, guarding, mass, organolmegaly, rebound, tenderness Rectal exam: PRESENT: deferred Musculoskeletal exam: PRESENT: ambulatory Neurological exam: PRESENT: alert, awake, oriented to person, oriented to place, oriented to time, oriented to situation, CN II-XII grossly intact. ABSENT: motor sensory deficit Psychiatric exam: PRESENT: appropriate affect, normal mood. ABSENT: homicidal ideation, suicidal ideation Skin exam: PRESENT: dry, intact, warm. ABSENT: cyanosis, rash Results Laboratory Results: 03/27/19 05:34 03/27/19 05:34 03/27/19 03/27/19 05:34 05:34 WBC 4.7 RBC 3.86 L Hgb 12.4 L Hct 35.0 L MCV 91 MCH 32.2 MCHC 35.5 RDW 13.7 Plt Count 396 Seg Neutrophils % 60.5 Sodium 136.1 L Potassium 4.0 Chloride 102 Carbon Dioxide 29 Anion Gap 5 BUN 9 Creatinine 0.47 L Est GFR ( Amer) > 60 Glucose 102 Calcium 8.6 03/23/19 07:10 Sputum Fungal Smear - Final 03/23/19 07:10 Sputum Fungal Smear - Final 03/20/19 03/21/19 03/21/19 17:47 05:00 05:00 Creatine Kinase 35 L CK-MB (CK-2) 1.83 Troponin I < 0.012 < 0.012 03/22/19 03/22/19 03/22/19 08:40 08:40 15:00 Creatine Kinase 39 L 30 L CK-MB (CK-2) 2.25 Troponin I < 0.012 03/22/19 03/22/19 03/22/19 15:00 19:39 19:39 Creatine Kinase 40 L CK-MB (CK-2) 2.30 2.62 Troponin I < 0.012 < 0.012 Impressions: Hip X-Ray 03/20/19 00:00 IMPRESSION: No acute findings. Carotid Doppler Study 03/21/19 00:00 IMPRESSION: Findings compatible with less than 50% stenosis of the bilateral internal carotid arteries. Chest X-Ray 03/22/19 00:00 IMPRESSION: AIRSPACE DISEASE IN THE LEFT LUNG BASE, CONCERNING FOR PNEUMONIA. SLIGHTLY WORSE COMPARED TO THE PRIOR STUDY. FOCAL DENSITY IN THE RETROCARDIAC REGION MAY BE RELATED TO INFILTRATE ALTHOUGH CANNOT EXCLUDE UNDERLYING MASS. Chest CT 03/23/19 08:00 IMPRESSION: 1. Extensive areas of pneumonia, most pronounced in the left upper lobe and left lower lobe. Small left parapneumonic effusion with minimal right pneumonia also suggested. Head CT 03/23/19 08:00 IMPRESSION: 1. No acute or suspicious intracranial abnormality. Specifically, no evidence of enhancing lesions to suggest underlying metastases. EVIDENCE OF ACUTE STROKE: NO. Shoulder X-Ray 03/26/19 00:00 IMPRESSION: No acute fracture or dislocation of the right shoulder. Assessment & Plan - Diagnosis (1) Pneumonia Qualifiers: Pneumonia type: due to unspecified organism Laterality: left Lung location: lower lobe of lung Qualified Code(s): J18.9 - Pneumonia, unspecified organism Is this a current diagnosis for this admission?: Yes (2) COPD (chronic obstructive pulmonary disease) Qualifiers: COPD type: unspecified COPD Qualified Code(s): J44.9 - Chronic obstructive pulmonary disease, unspecified Is this a current diagnosis for this admission?: Yes (3) Laryngeal cancer Is this a current diagnosis for this admission?: Yes (4) Tracheostomy dependence Is this a current diagnosis for this admission?: Yes (5) Syncopal episodes Qualifiers: Syncope type: unspecified Qualified Code(s): R55 - Syncope and collapse Is this a current diagnosis for this admission?: Yes - Time Time Spent with patient: 15-24 minutes Level of Care: IMCU Medications reviewed and adjusted accordingly: Yes Anticipated discharge: Home with Homehealth Within: within 24 hours - Plan Summary Plan Summary: We will repeat the chest x-ray continues the IV antibiotic
[2019-03-27] MEDS ORDERED: LEVOFLOXACIN 750 MG TABLET PO SCH (10:00)
--- NOTE | 2019-03-27 19:13 | Progress Note ---
Provider Note Provider Note: CARDIOLOGY PROGRESS NOTE by Dr. Mariposa Bansal on . SUBJECTIVE: The patient's shortness of breath is much improved. The patient still coughing up some gobs of brownish dark sputum. He denies any chest pain discomfort. There is no PND orthopnea. There is no leg edema. There is no palpitations. There is no arrhythmia seen on the monitor. PHYSICAL EXAMINATION: The patient is well-built. At present in no acute distress Selected Entries 03/27/19 07:50 Temperature 99.4 F Temperature Oral Source Pulse Rate 78 Respiratory 16 Rate Blood Pressure 135/81 H Blood Pressure 99 Mean BP Location Left Arm BP Position Sitting O2 Sat by Pulse 93 Oximetry Oxygen Flow 6.00 Rate Oxygen Delivery Trach Collar Method HEAD: Is atraumatic normocephalic. EYES: Pupils are equal round regular reactive light accommodation. Extraocular movements are normal. There is no conjunctival pallor. There is no scleral icterus. EARS: Tympanic membranes are intact. External auditory canals are clear. NOSE: There is no deviated nasal septum. There is no inflammation nasal mucous membrane. MOUTH: Mucous membranes of mouth are moist. Tongue is moist. There is no ulcers. There is no bleeding from the gums. THROAT: There is no redness of the oropharynx. There is no exudates. The patient patient has a tracheostomy stoma which is clean and without signs of any infection. NECK: Is supple. There is no JVD. Carotids are equal there is no bruit there is no lymphadenopathy. There is no accessory muscle respiration use. There is no goiter. Trachea central. SKIN: There is no skin rashes. There is no skin lesions. There is no petechia or ecchymosis. LUNGS: There is diminished air entry prolonged expiration. There is a few dry crackles in the left base. There is no wheezing today. There is bilateral scattered rhonchi. There is no rales of CHF. There is hyperresonance on percussion. HEART: S1-S2 is heard. There is no S3 gallop. There is no S4 gallop. There is systolic murmur left sternal border and the apex there is no rub. ABDOMEN: Soft. Nontender. There is no hepatosplenomegaly bowel sounds well heard. EXTREMITIES: Femorals is well felt. There is no femoral bruits. There is no leg edema there is no pedal edema. There is no DVT or cellulitis. There is no calf tenderness. There is no cyanosis or clubbing. 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 PSYCHIATRIC: Patient judgment insight are intact his affect is normal. Labs- All tests 24 hr 03/26/19 03/27/19 03/27/19 20:06 05:34 05:34 WBC 4.7 RBC 3.86 L Hgb 12.4 L Hct 35.0 L MCV 91 MCH 32.2 MCHC 35.5 RDW 13.7 Plt Count 396 Lymph % (Auto) 23.7 [place] % (Auto) 11.5 Eos % (Auto) 3.5 Baso % (Auto) 0.8 Absolute Neuts (auto) 2.8 Absolute Lymphs (auto) 1.1 Absolute Monos (auto) 0.5 Absolute Eos (auto) 0.2 Absolute Basos (auto) 0.0 Seg Neutrophils % 60.5 Sodium 136.1 L Potassium 4.0 Chloride 102 Carbon Dioxide 29 Anion Gap 5 BUN 9 Creatinine 0.47 L Est GFR ( Amer) > 60 Est GFR (MDRD) Non-Af > 60 Glucose 102 Calcium 8.6 AFB Smear NO ACID FAST BACILLI Hip X-Ray 03/20/19 00:00 IMPRESSION: No acute findings. Chest X-Ray 03/20/19 16:57 IMPRESSION: Left lower lobe pneumonia. Carotid Doppler Study 03/21/19 00:00 IMPRESSION: Findings compatible with less than 50% stenosis of the bilateral internal carotid arteries. Chest X-Ray 03/22/19 00:00 IMPRESSION: AIRSPACE DISEASE IN THE LEFT LUNG BASE, CONCERNING FOR PNEUMONIA. SLIGHTLY WORSE COMPARED TO THE PRIOR STUDY. FOCAL DENSITY IN THE RETROCARDIAC REGION MAY BE RELATED TO INFILTRATE ALTHOUGH CANNOT EXCLUDE UNDERLYING MASS. Chest CT 03/23/19 08:00 IMPRESSION: 1. Extensive areas of pneumonia, most pronounced in the left upper lobe and left lower lobe. Small left parapneumonic effusion with minimal right pneumonia also suggested. Head CT 03/23/19 08:00 IMPRESSION: 1. No acute or suspicious intracranial abnormality. Specifically, no evidence of enhancing lesions to suggest underlying metastases. EVIDENCE OF ACUTE STROKE: NO. Shoulder X-Ray 03/26/19 00:00 IMPRESSION: No acute fracture or dislocation of the right shoulder. Chest X-Ray 03/27/19 00:00 IMPRESSION: Improving left lower lobe pneumonia. IMPRESSION/RECOMMENDATION: 1. Acute respiratory distress this morning due to tracheostomy or loss still obstruction due to a semi-fleshy inspissated mass. This has resolved after the patient expectorated the mass. The patient has a tracheostomy tube in situ. 2. History of syncope: Etiology not clear. Await records from [facility]. The patient most likely will require a 30-day event monitor. Still await records from [facility]. 3. Left lower lobe pneumonia: Continue antibiotics. 4. History of chronic obstructive pulmonary disease: No acute exacerbation. Continue current treatment. 5. History of hypertension: Blood pressure well controlled. 6. History of throat cancer status post tracheostomy: Patient claims that there is no recurrence of the throat cancer. Medications reviewed. Medical regimen and management plan discussed with attending provider on the case. Medical decision making is a moderate complexity. 35 minutes spent as patient more than 50% of time spent in direct patient care. Will follow.
--- NOTE | 2019-03-27 19:33 | RADIOLOGY REPORT (SQ) ---
EXAM DESCRIPTION: CHEST SINGLE VIEW COMPLETED DATE/TIME: 03/27/2019 7:06 pm REASON FOR STUDY: follow up pneumonia COMPARISON: 04/20/2019 EXAM PARAMETERS: NUMBER OF VIEWS: One view. TECHNIQUE: Single frontal radiographic view of the chest acquired. RADIATION DOSE: NA LIMITATIONS: None. FINDINGS: LUNGS AND PLEURA: There is improved aeration in the left lower lobe with residual infiltra te. MEDIASTINUM AND HILAR STRUCTURES: No masses. Contour normal. HEART AND VASCULAR STRUCTURES: Heart normal in size. Normal vasculature. BONES: No acute findings. HARDWARE: None in the chest. OTHER: No other significant finding. IMPRESSION: Improving left lower lobe pneumonia. TECHNICAL DOCUMENTATION: JOB ID: [id number] 2010 [employer]- All Rights Reserved Reading location - IP/workstation name: [email or web address]
[2019-03-28] MEDS: IPRATROPIUM/ALBUTEROL 0.5-2.5 MG/3 ML AMPUL NEB SCH ×3 (00:15→08:27)
[2019-03-28] MEDS: ACETAMINOPHEN 325 MG TABLET PO PRN (00:38)
[2019-03-28 06:25] LABS: ANION GAP 5 (5-19); BLOOD UREA NITROGEN 10 mg/dL (7-20); CALCIUM 8.6 mg/dL (8.4-10.2); CARBON DIOXIDE 29 mmol/L (22-30); CHLORIDE 103 mmol/L (98-107); GLUCOSE 99 mg/dL (75-110)
[2019-03-28] MEDS: BUDESONIDE NEB 0.5 MG/2 ML AMPUL NEB SCH (08:27)
[2019-03-28 08:36] VITALS: BP 142/66
--- NOTE | 2019-03-28 10:09 | PDOC DISCHARGE SUMMARY ---
Impression - Admit/DC Date/PCP Admission Date/Primary Care Provider: 03/20/19 19:09 MANUEL SIMS MD Discharge Date: 03/28/19 - Discharge Diagnosis (1) Pneumonia Is this a current diagnosis for this admission?: Yes (2) COPD (chronic obstructive pulmonary disease) Is this a current diagnosis for this admission?: Yes (3) Laryngeal cancer Is this a current diagnosis for this admission?: Yes (4) Tracheostomy dependence Is this a current diagnosis for this admission?: Yes (5) Syncopal episodes Is this a current diagnosis for this admission?: Yes - Additional Information Discharge Diet: Regular Discharge Activity: Activity As Tolerated Referrals: HODAN WILBURN PA-C [PHYSICIAN FIELD SERVICES MANAGER] - 04/04/19 1:45 pm (f/u with ent f/u in ce ) Prescriptions: Ipratropium/Albuterol Sulfate [Duoneb 3 ml Ampul] 3 ml NEB RTQ4 #120 vial.neb Levofloxacin [Levaquin 500 mg Tablet] 500 mg PO DAILY #10 tablet Guaifenesin [Mucinex Sr 600 mg Tablet.sa] 600 mg PO Q12 #60 tablet.sa Budesonide [Pulmicort Neb 0.5 mg/2 ml Ampul] 0.5 mg NEB RTQ12 #60 ampul.neb Home Medications: Albuterol Sulfate [Ventolin Hfa 8 gm Mdi (1 Mdi/ER Disp)] 1 puff IH Q6HP PRN 03/20/19 Fluticasone Propion/Salmeterol [Advair HFA 115-21 mcg Inhaler] 2 puff IH BID 03/20/19 Losartan Potassium [Cozaar 50 mg Tablet] 50 mg PO Q12 03/20/19 Tiotropium [place] [Spiriva Respimat] 2 puff IH DAILY 03/20/19 Budesonide [Pulmicort Neb 0.5 mg/2 ml Ampul] 0.5 mg NEB RTQ12 #60 ampul.neb 03/28/19 Guaifenesin [Mucinex Sr 600 mg Tablet.sa] 600 mg PO Q12 #60 tablet.sa 03/28/19 Ipratropium/Albuterol Sulfate [Duoneb 3 ml Ampul] 3 ml NEB RTQ4 #120 vial.neb 03/28/19 Levofloxacin [Levaquin 500 mg Tablet] 500 mg PO DAILY #10 tablet 03/28/19 History of Present Illiness History of Present Illness: KAYODE DUNN is a 73 year old male This is a 73-year-old male with a history of the COPD history of the throat cancer status post tracheostomy and history of the hypertensions recently have a fall syncopal type episodes [facility] of the head and CT of the spine CT of the chest and x-ray all negative Patient's blood work was all stable and echocardiogram was also performed was all stable Patients came yesterday's to the office with the fever was 101 patient was complaining of more cough not feeling well and decided to send to the emergency department initially try to admit directly but there is no bed available in the hospitals and in the emergency department patient is found a left lower lobe pneumonia Start on IV antibiotics when I saw the patient on the floor feeling better no chest pain no short of breath anymore Still having some pain on the right side of the chest with contusion Hospital Course Hospital Course: This is a 73-year-old male present in the office because of the fever cough congestions not feeling wellAnd patient at this point sent to the emergency department diagnosed with a pneumonia bilaterally start on IV antibiotics Patient have ongoing tracheostomy problems patient have a big chunk of the mucus tissue come out from the chart patient is almost close to the rapid response and the patient's mucous plug was removed and patient was feeling better after that Patient's mucous plug with tissues with the pathologist did not show any malignancy but showed some reactive tissues Seen by the pulmonary and also seen by the ENT and endoscopy was done through the tracheal site Patient have appointment to see his on ENT at [facility] next week according to the patient and the family Patient also seen by the cardiology because of the syncopal episode Dr. GORDON and suggest all stable and follow outpatients Patient otherwise responds very well with all the treatment patient have oxygen and humidifier at home's and suctioning machine at home to Patient is very expressed to go home's and he think he is feeling much better he does not want to stay in the hospital more I think patients currently all back to the baseline Patients definitely need to see the ENT about ongoing tracheostomy with a history of laryngeal cancers Patient's follow-up with the pulmonary and follow-up with the Dr. GORDON With the patient and the family including the son and the daughter regarding the patient's current conditions Repeat chest x-ray is all stable patient is put on the p.o. Levaquin for 10 days continues to nebulizer treatments humidified oxygen at home's Physical Exam Vital Signs: Temp Pulse Resp BP Pulse Ox 98.7 F 70 18 142/66 H 95 03/28/19 08:34 03/28/19 08:34 03/28/19 08:34 03/28/19 08:34 03/28/19 08:34 Intake & Output 03/27/19 03/28/19 03/29/19 06:59 06:59 06:59 Intake Total 1290 2019 Balance 1290 2019 Weight 83.9 kg 83.8 kg General appearance: PRESENT: no acute distress, well-developed, well-nourished Head exam: PRESENT: atraumatic, normocephalic Eye exam: PRESENT: conjunctiva pink, EOMI, PERRLA. ABSENT: scleral icterus Ear exam: PRESENT: normal external ear exam Mouth exam: PRESENT: moist, tongue midline Neck exam: ABSENT: carotid bruit, JVD, lymphadenopathy, thyromegaly Respiratory exam: PRESENT: clear to auscultation jm. ABSENT: rales, rhonchi, wheezes Cardiovascular exam: PRESENT: RRR. ABSENT: diastolic murmur, rubs, systolic murmur Pulses: PRESENT: normal dorsalis pedis pul Vascular exam: PRESENT: normal capillary refill GI/Abdominal exam: PRESENT: normal bowel sounds, soft. ABSENT: distended, guarding, mass, organolmegaly, rebound, tenderness Rectal exam: PRESENT: deferred Extremities exam: PRESENT: full ROM. ABSENT: calf tenderness, clubbing, pedal edema Neurological exam: PRESENT: alert, awake, oriented to person, oriented to place, oriented to time, oriented to situation, CN II-XII grossly intact. ABSENT: motor sensory deficit Psychiatric exam: PRESENT: appropriate affect, normal mood. ABSENT: homicidal ideation, suicidal ideation Skin exam: PRESENT: dry, intact, warm. ABSENT: cyanosis, rash Results Laboratory Results: WBC 4.7 10^3/uL (4.0-10.5) 03/27/19 05:34 RBC 3.86 10^6/uL (4.35-5.55) L 03/27/19 05:34 Hgb 12.4 g/dL (13.5-17.0) L 03/27/19 05:34 Hct 35.0 % (37.9-51.0) L 03/27/19 05:34 MCV 91 fl (80-97) 03/27/19 05:34 MCH 32.2 pg (27.0-33.4) 03/27/19 05:34 MCHC 35.5 g/dL (32.0-36.0) 03/27/19 05:34 RDW 13.7 % (11.5-14.0) 03/27/19 05:34 Plt Count 396 10^3/uL (150-450) 03/27/19 05:34 Lymph % (Auto) 23.7 % (13-45) 03/27/19 05:34 [place] % (Auto) 11.5 % (3-13) 03/27/19 05:34 Eos % (Auto) 3.5 % (0-6) 03/27/19 05:34 Baso % (Auto) 0.8 % (0-2) 03/27/19 05:34 Absolute Neuts (auto) 2.8 10^3/uL (1.7-8.2) 03/27/19 05:34 Absolute Lymphs (auto) 1.1 10^3/uL (0.5-4.7) 03/27/19 05:34 Absolute Monos (auto) 0.5 10^3/uL (0.1-1.4) 03/27/19 05:34 Absolute Eos (auto) 0.2 10^3/uL (0.0-0.6) 03/27/19 05:34 Absolute Basos (auto) 0.0 10^3/uL (0.0-0.2) 03/27/19 05:34 Seg Neutrophils % 60.5 % (42-78) 03/27/19 05:34 Carbonic Acid 1.09 mmol/L (1.05-1.35) 03/22/19 12:33 HCO3/H2CO3 Ratio 22:1 03/22/19 12:33 ABG pH 7.44 (7.35-7.45) 03/22/19 12:33 ABG pCO2 36.3 mmHg (35-45) 03/22/19 12:33 ABG pO2 110.3 mmHg (80-100) H 03/22/19 12:33 ABG HCO3 24.2 mmol/L (20-24) H 03/22/19 12:33 ABG Total CO2 25.3 mmol/L (23-27) 03/22/19 12:33 ABG O2 Saturation 98.2 % (94-98) H 03/22/19 12:33 ABG Base Excess 0.3 mmol/L 03/22/19 12:33 VBG pH 7.42 (7.30-7.42) 03/20/19 19:05 VBG pCO2 43.8 mmHg (35-63) 03/20/19 19:05 VBG HCO3 27.5 mmol/L (20-32) 03/20/19 19:05 VBG Base Excess 2.5 mmol/L 03/20/19 19:05 FiO2 ROOM AIR 03/22/19 12:33 Sodium 137.4 mmol/L (137-145) 03/28/19 05:34 Potassium 4.0 mmol/L (3.6-5.0) 03/28/19 05:34 Chloride 103 mmol/L (98-107) 03/28/19 05:34 Carbon Dioxide 29 mmol/L (22-30) 03/28/19 05:34 Anion Gap 5 (5-19) 03/28/19 05:34 BUN 10 mg/dL (7-20) 03/28/19 05:34 Creatinine 0.50 mg/dL (0.52-1.25) L 03/28/19 05:34 Est GFR ( Amer) > 60 (>60) 03/28/19 05:34 Est GFR (MDRD) Non-Af > 60 (>60) 03/28/19 05:34 Glucose 99 mg/dL (75-110) 03/28/19 05:34 POC Glucose 144 mg/dL (70-110) H 03/22/19 07:46 Lactic Acid 0.9 mmol/L (0.7-2.1) 03/21/19 05:00 Calcium 8.6 mg/dL (8.4-10.2) 03/28/19 05:34 Magnesium 2.1 mg/dL (1.6-2.3) 03/22/19 08:40 Total Bilirubin 0.7 mg/dL (0.2-1.3) 03/23/19 04:07 Direct Bilirubin 0.3 mg/dL (0.0-0.4) 03/23/19 04:07 Neonat Total Bilirubin Not Reportable 03/23/19 04:07 Neonat Direct Bilirubin Not Reportable 03/23/19 04:07 Neonat Indirect Bili Not Reportable 03/23/19 04:07 AST 25 U/L (17-59) 03/23/19 04:07 ALT 28 U/L (<50) 03/23/19 04:07 Alkaline Phosphatase 72 U/L (38-126) 03/23/19 04:07 Creatine Kinase 40 U/L (55-170) L 03/22/19 19:39 CK-MB (CK-2) 2.62 ng/mL (<4.55) 03/22/19 19:39 Troponin I < 0.012 ng/mL 03/22/19 19:39 Total Protein 5.8 g/dL (6.3-8.2) L 03/23/19 04:07 Albumin 3.0 g/dL (3.5-5.0) L 03/23/19 04:07 Urine Color ROMERO 03/20/19 20: Urine Appearance SLIGHTLY-CLOUDY 03/20/19 20: Urine pH 5.0 (5.0-9.0) 03/20/19 20:27 Ur Specific [place] 1.035 03/20/19 20:27 Urine Protein 100 mg/dL (NEGATIVE) H 03/20/19 20:27 Urine Glucose (UA) 50 mg/dL (NEGATIVE) H 03/20/19 20:27 Urine Ketones 20 mg/dL (NEGATIVE) H 03/20/19 20:27 Urine Blood SMALL (NEGATIVE) H 03/20/19 20:27 Urine Nitrite (Reflex) NEGATIVE (NEGATIVE) 03/20/19 20: Urine Bilirubin NEGATIVE (NEGATIVE) 03/20/19 20: Urine Urobilinogen 4.0 mg/dL (<2.0) H 03/20/19 20:27 Leukocyte Esterase Rfl NEGATIVE (NEGATIVE) 03/20/19 20:27 Urine RBC (Auto) 7 /HPF 03/20/19 20:27 Urine WBC (Reflex) 4 /HPF 03/20/19 20:27 Squamous Epi Cells Auto 1 /HPF 03/20/19 20:27 Urine Mucus (Auto) MANY /LPF 03/20/19 20:27 Urine Ascorbic Acid NEGATIVE (NEGATIVE) 03/20/19 20:27 Influenza A (Rapid) NEGATIVE (NEGATIVE) 03/20/19 18:00 Influenza B (Rapid) NEGATIVE (NEGATIVE) 03/20/19 18:00 AFB Smear NO ACID FAST BACILLI (NO AFB SEEN) 03/26/19 20:06 03/20/19 03/21/19 03/22/19 17:47 05:00 08:40 CK-MB (CK-2) 1.83 2.25 Troponin I < 0.012 < 0.012 < 0.012 03/22/19 03/22/19 15:00 19:39 CK-MB (CK-2) 2.30 2.62 Troponin I < 0.012 < 0.012 Impressions: Hip X-Ray 03/20/19 00:00 IMPRESSION: No acute findings. Chest X-Ray 03/20/19 16:57 IMPRESSION: Left lower lobe pneumonia. Carotid Doppler Study 03/21/19 00:00 IMPRESSION: Findings compatible with less than 50% stenosis of the bilateral internal carotid arteries. Chest X-Ray 03/22/19 00:00 IMPRESSION: AIRSPACE DISEASE IN THE LEFT LUNG BASE, CONCERNING FOR PNEUMONIA. SLIGHTLY WORSE COMPARED TO THE PRIOR STUDY. FOCAL DENSITY IN THE RETROCARDIAC REGION MAY BE RELATED TO INFILTRATE ALTHOUGH CANNOT EXCLUDE UNDERLYING MASS. Chest CT 03/23/19 08:00 IMPRESSION: 1. Extensive areas of pneumonia, most pronounced in the left upper lobe and left lower lobe. Small left parapneumonic effusion with minimal right pneumonia also suggested. Head CT 03/23/19 08:00 IMPRESSION: 1. No acute or suspicious intracranial abnormality. Specifically, no evidence of enhancing lesions to suggest underlying metastases. EVIDENCE OF ACUTE STROKE: NO. Shoulder X-Ray 03/26/19 00:00 IMPRESSION: No acute fracture or dislocation of the right shoulder. Chest X-Ray 03/27/19 00:00 IMPRESSION: Improving left lower lobe pneumonia. Plan Time Spent: Greater than 30 Minutes - Follow in office 1 week follow-up with the ENT and pulmonary Stroke Is this a Stroke Patient?: No Acute Heart Failure - Is this a Heart Failure Patient?: No
--- NOTE | 2019-04-10 13:53 | Progress Note ---
Provider Note Provider Note: Discharge summary already up-to-date with a left-sided Pseudomonas pneumonia
== END 2019-03-28 09:14 | disposition home health service (06) | DRG 207 ==
LOC: ER 16:32 → EH 19:09 → 3N 03-21 02:36 → 3S 03-23 16:50
PROVIDERS: ADMIT Family Medicine; ATTEND Family Medicine
PROC: 5A1955Z Respiratory Ventilation, Greater than 96 Consecutive Hours (ICD-10-PCS; principal; 2019-03-22)
PROC: 0BC18ZZ Extirpation of Matter from Trachea, Via Natural or Artificial Opening Endoscopic (ICD-10-PCS; 2019-03-22)
PROC: 3E02340 Introduction of Influenza Vaccine into Muscle, Percutaneous Approach (ICD-10-PCS; 2019-03-28)
DX: J15.1 Pneumonia due to Pseudomonas (principal); J44.0 Chronic obstructive pulmonary disease with (acute) lower respiratory infection; Z99.11 Dependence on respirator [ventilator] status; T17.490A Other foreign object in trachea causing asphyxiation, initial encounter; I10 Essential (primary) hypertension; I25.10 Atherosclerotic heart disease of native coronary artery without angina pectoris; B95.61 Methicillin susceptible Staphylococcus aureus infection as the cause of diseases classified elsewhere; B96.1 Klebsiella pneumoniae [K. pneumoniae] as the cause of diseases classified elsewhere; Z23 Encounter for immunization; Z79.899 Other long term (current) drug therapy; Z87.891 Personal history of nicotine dependence; Z90.02 Acquired absence of larynx; Z85.21 Personal history of malignant neoplasm of larynx; Z91.81 History of falling
CPT/HCPCS: 36415; 70470; 71045; 71046; 71260; 73522; 80048; 80053; 81001; 82550; 82553; 82803; 82962; 83605; 83735; 84484; 85025; 87015; 87040; 87070; 87077; 87101; 87116; 87150; 87186; 87205; 87206; 87804; 88305; 90686; 93005; 93010; 93880; 94640; 96365; 99285; J0692; J1650; J1956; J3490; J7030; J7060; J7120; J7620

== ENCOUNTER → 2019-04-12 | Outpatient (CLI) | payer MEDICARE, OTHER ==
--- NOTE | 2019-04-12 12:12 | RADIOLOGY REPORT (SQ) ---
EXAM DESCRIPTION: CHEST PA/LATERAL COMPLETED DATE/TIME: 04/12/2019 11:02 am REASON FOR STUDY: CHRONIC OBSTRUCTIVE PULMONARY DISEASE, UNSPECIFIED COMPARISON: Chest films 03/27/2019, 03/22/2019, 08/06/2017 CT chest 03/23/2019 EXAM PARAMETERS: NUMBER OF VIEWS: two views TECHNIQUE: Digital Frontal and Lateral radiographic views of the chest acquired. RADIATION DOSE: NA LIMITATIONS: none FINDINGS: LUNGS AND PLEURA: Minimal lingular scarring or atelectasis persists. Dense consolidation in the left posterior lung base and elsewhere in the left upper lobe has resolved . Right lung clear. No pleural effusion or pneumothorax. MEDIASTINUM AND HILAR STRUCTURES: No masses or contour abnormalities. HEART AND VASCULAR STRUCTURES: Heart normal size. No evidence for failure. BONES: No acute findings. HARDWARE: None in the chest. OTHER: No other significant finding. IMPRESSION: Minimal lingular scarring or atelectasis. Significant clearing of multifocal pneumonia compared to CT chest 03/23/2019. TECHNICAL DOCUMENTATION: JOB ID: [id number] 2010 [employer]- All Rights Reserved Reading location - IP/workstation name: [email or web address]
== END ==
LOC: OD 10:50
PROVIDERS: ATTEND Physician Assistant
DX: J44.9 Chronic obstructive pulmonary disease, unspecified (principal)
CPT/HCPCS: 71046

== ENCOUNTER 2019-08-25 15:33 | Emergency (ER) | payer MEDICARE, OTHER ==
[2019-08-25] MEDS ORDERED: LIDOCAINE 1% INJ-PF (10 MG/ML) 30 ML SDV INJ ONE (15:54)
--- NOTE | 2019-08-25 15:57 | ER Document Report ---
ED Medical Screen (RME) - General Chief Complaint: Arm Injury Stated Complaint: FALL/ARM/HEAD LACERATION Time Seen by Provider: 08/25/19 15:44 Primary Care Provider: HODAN WILBURN PA-C [Primary Care Provider] - Follow up as needed Mode of Arrival: Ambulatory Information source: Patient Notes: Patient is a 74-year-old male presenting to the emergency department after falling 8 feet from a ladder landing onto pavement. Patient reports he lost his footing on the ladder. He has a laceration to the back of his head and a laceration to his left elbow area. He has a tracheostomy. He has been ambulatory since the fall. He is alert, oriented and does not appear to be in any acute distress. I have greeted and performed a rapid initial assessment of this patient. A comprehensive ED assessment and evaluation of the patient, analysis of test results and completion of the medical decision making process will be conducted by additional ED providers. I have specifically instructed the patient or family members with the patient to immediately return to any nursing staff should anything change in the patient's condition or with their chief complaint. TRAVEL OUTSIDE OF THE [place] IN LAST 30 DAYS: No - Related Data Allergies/Adverse Reactions: No Known Allergies Allergy (Verified 03/20/19 16:48) Past Medical History - Past Medical History Cardiac Medical History: Reports: Hx Coronary Artery Disease, Hx Hypertension Denies: Hx Heart Attack Pulmonary Medical History: Reports: Hx Asthma, Hx Bronchitis, Hx COPD Denies: Hx Pneumonia Neurological Medical History: Denies: Hx Cerebrovascular Accident, Hx Seizures Renal/ Medical History: Denies: Hx Peritoneal Dialysis Musculoskeltal Medical History: Denies Hx Arthritis Past Surgical History: Reports: Hx Oral Surgery - laynectomy 2010, Other - The patient is with a post laryngectomy stoma site - Immunizations Hx Diphtheria, Pertussis, Tetanus Vaccination: Yes Physical Exam - Vital signs Vitals: Temp Pulse Resp BP Pulse Ox 98.7 F 68 20 166/84 H 95 08/25/19 15:38 08/25/19 15:38 08/25/19 15:38 08/25/19 15:38 08/25/19 15:38 Course - Vital Signs Vital signs: Temp Pulse Resp BP Pulse Ox 98.7 F 68 20 166/84 H 95 08/25/19 15:38 08/25/19 15:38 08/25/19 15:38 08/25/19 15:38 08/25/19 15:38 Doctor's Discharge - Discharge Referrals: HODAN WILBURN PA-C [Primary Care Provider] - Follow up as needed
--- NOTE | 2019-08-25 16:36 | RADIOLOGY REPORT (SQ) ---
EXAM DESCRIPTION: CT HEAD WITHOUT IMAGES COMPLETED DATE/TIME: 08/25/2019 4:23 pm REASON FOR STUDY: fall 8 feet COMPARISON: 03/23/2019 TECHNIQUE: Axial images acquired through the brain without intravenous contrast. Images reviewed wi th bone, brain and subdural windows. Additional sagittal and coronal reconstructions were generated. Images stored on PACS. All CT scanners at this facility use dose modulation, iterative reconstruction, and/or weight based d osing when appropriate to reduce radiation dose to as low as reasonably achievable (ALARA). [facility]: Dose Right [facility]: CareDose [facility]: Dose Right [facility]: Teradose 4D [facility]: Smart [employer] RADIATION DOSE: CT Rad equipment meets quality standard of care and radiation dose reduction techniq ues were employed. CTDIvol: 53.2 mGy. DLP: 1230 mGy-cm.mGy. LIMITATIONS: None. FINDINGS: VENTRICLES: Prominent. CEREBRUM: No masses. No hemorrhage. No midline shift. Areas of low density in the white matter mos t likely due to chronic micro-vascular ischemic change. No evidence for acute infarction. CEREBELLUM: No masses. No hemorrhage. No alteration of density. No evidence for acute infarction. EXTRAAXIAL SPACES: Aneurysm clips basal cistern. Age-related involutional change. No fluid collecti ons. No masses. ORBITS AND GLOBE: No intra- or extraconal masses. Normal contour of globe without masses. CALVARIUM: No fracture. PARANASAL SINUSES: No fluid or mucosal thickening. SOFT TISSUES: Small occipital scalp hematoma. OTHER: No other significant finding. IMPRESSION: CHRONIC CHANGES OF ATROPHY AND MICROVASCULAR ISCHEMIA. NO ACUTE PROCESS. EVIDENCE OF ACUTE STROKE: NO. TECHNICAL DOCUMENTATION: JOB ID: [id number] Quality ID # [id number]: Final reports with documentation of one or more dose reduction techniques (e.g., Au tomated exposure control, adjustment of the mA and/or kV according to patient size, use of iterative reconstruction technique) 2010 [employer]- All Rights Reserved Reading location - IP/workstation name: [email or web address]
--- NOTE | 2019-08-25 16:37 | RADIOLOGY REPORT (SQ) ---
EXAM DESCRIPTION: CT CERVICAL SPINE WITHOUT IMAGES COMPLETED DATE/TIME: 08/25/2019 4:23 pm REASON FOR STUDY: fall 8 feet COMPARISON: None. TECHNIQUE: Axial images acquired through the cervical spine without intravenous contrast. Images re viewed with lung, soft tissue and bone windows. Reconstructed coronal and sagittal MPR images review ed. Images stored on PACS. All CT scanners at this facility use dose modulation, iterative reconstruction, and/or weight based d osing when appropriate to reduce radiation dose to as low as reasonably achievable (ALARA). [facility]: Dose Right [facility]: CareDose [facility]: Dose Right [facility]: Teradose 4D [facility]: Smart [employer] RADIATION DOSE: CT Rad equipment meets quality standard of care and radiation dose reduction techniq ues were employed. CTDIvol: 18.6 mGy. DLP: 326 mGy-cm. mGy. LIMITATIONS: None. FINDINGS: ALIGNMENT: Anatomic. MINERALIZATION: Normal. VERTEBRAL BODIES: No fractures or dislocation. DISCS: Multilevel disc space narrowing with osteophytes. FACETS, LATERAL MASSES, POSTERIOR ELEMENTS: Facet arthropathy. No fractures. No dislocation. No ac kake findings. HARDWARE: None in the spine. VISUALIZED RIBS: No fractures. LUNG APICES AND SOFT TISSUES: No significant or acute findings. OTHER: No other significant finding. IMPRESSION: CHRONIC DEGENERATIVE CHANGES. NO ACUTE FINDINGS. TECHNICAL DOCUMENTATION: JOB ID: [id number] Quality ID # [id number]: Final reports with documentation of one or more dose reduction techniques (e.g., Au tomated exposure control, adjustment of the mA and/or kV according to patient size, use of iterative reconstruction technique) 2010 [employer]- All Rights Reserved Reading location - IP/workstation name: [email or web address]
--- NOTE | 2019-08-25 16:46 | RADIOLOGY REPORT (SQ) ---
EXAM DESCRIPTION: ELBOW LEFT OVER 2 VIEWS; ELBOW RIGHT OVER 2 VIEWS IMAGES COMPLETED DATE/TIME: 08/25/2019 4:36 pm REASON FOR STUDY: fall/laceration/eval for FB; pain s/p fall COMPARISON: 11/26/2011 NUMBER OF VIEWS: 8 views TECHNIQUE: AP, lateral, and both oblique radiographic images acquired of the right and left elbow. LIMITATIONS: None. FINDINGS: MINERALIZATION: Normal. BONES: Old fracture right radial head. No acute fracture. JOINT: No effusion. SOFT TISSUES: Posterior swelling. No foreign body. OTHER: No other significant finding. IMPRESSION: No acute fracture or foreign body. TECHNICAL DOCUMENTATION: JOB ID: [id number] 2010 [employer]- All Rights Reserved Reading location - IP/workstation name: [email or web address]
--- NOTE | 2019-08-25 16:46 | RADIOLOGY REPORT (SQ) ---
EXAM DESCRIPTION: ELBOW LEFT OVER 2 VIEWS; ELBOW RIGHT OVER 2 VIEWS IMAGES COMPLETED DATE/TIME: 08/25/2019 4:36 pm REASON FOR STUDY: fall/laceration/eval for FB; pain s/p fall COMPARISON: 11/26/2011 NUMBER OF VIEWS: 8 views TECHNIQUE: AP, lateral, and both oblique radiographic images acquired of the right and left elbow. LIMITATIONS: None. FINDINGS: MINERALIZATION: Normal. BONES: Old fracture right radial head. No acute fracture. JOINT: No effusion. SOFT TISSUES: Posterior swelling. No foreign body. OTHER: No other significant finding. IMPRESSION: No acute fracture or foreign body. TECHNICAL DOCUMENTATION: JOB ID: [id number] 2010 [employer]- All Rights Reserved Reading location - IP/workstation name: [email or web address]
--- NOTE | 2019-08-25 16:55 | RADIOLOGY REPORT (SQ) ---
EXAM DESCRIPTION: CHEST SINGLE VIEW IMAGES COMPLETED DATE/TIME: 08/25/2019 4:36 pm REASON FOR STUDY: fall 8 feet COMPARISON: Chest x-ray 04/12/2019, 03/27/2019. EXAM PARAMETERS: NUMBER OF VIEWS: One view. TECHNIQUE: 2 frontal radiographic views of the chest acquired. RADIATION DOSE: NA LIMITATIONS: None. FINDINGS: LUNGS AND PLEURA: Airspace opacity noted at the left lung base. No sizable pneumothorax o r pleural effusion. MEDIASTINUM AND HILAR STRUCTURES: No masses. Contour normal. HEART AND VASCULAR STRUCTURES: Heart normal in size. Normal vasculature. Atherosclerotic calcificat ions are noted at the thoracic aorta. BONES: No acute findings. HARDWARE: None in the chest. IMPRESSION: Airspace opacity at the left lung base, may be secondary to pneumonia or atelectasis. TECHNICAL DOCUMENTATION: JOB ID: [id number] 2010 [employer]- All Rights Reserved Reading location - IP/workstation name: [email or web address]
[2019-08-25] MEDS ORDERED: OXYCODONE-ACETAMINOPHEN 5-325 MG TABLET PO ONE (17:41)
--- NOTE | 2019-08-25 17:45 | ER Document Report ---
ED General - General Chief Complaint: Fall Stated Complaint: FALL/ARM/HEAD LACERATION Time Seen by Provider: 08/25/19 15:44 Primary Care Provider: HODAN WILBURN PA-C [PHYSICIAN DIRECTOR OF DIETARY] - Follow up as needed Mode of Arrival: Ambulatory TRAVEL OUTSIDE OF THE [place] IN LAST 30 DAYS: No - HPI Notes: Patient is a 74-year-old male with a history of laryngeal cancer, status post tracheostomy, who was 8 feet up on a ladder and missed a rung. He fell down, backwards onto concrete. He landed on his buttocks and his head. He did not lose consciousness. He has very minimal neck pain. He complains of pain primarily in his left elbow and his sacral area. He denies any numbness or tingling. He denies any nausea or vomiting. No altered mental status. No other acute complaints or concerns. He states his tetanus is up-to-date. - Related Data Allergies/Adverse Reactions: No Known Allergies Allergy (Verified 08/25/19 16:21) Home Medications: List reviewed Past Medical History - General Information source: Patient - Social History Smoking Status: Former Smoker Family History: None, Reviewed & Not Pertinent - Past Medical History Cardiac Medical History: Reports: Hx Coronary Artery Disease, Hx Hypertension Denies: Hx Heart Attack Pulmonary Medical History: Reports: Hx Asthma, Hx Bronchitis, Hx COPD Denies: Hx Pneumonia Neurological Medical History: Denies: Hx Cerebrovascular Accident, Hx Seizures Renal/ Medical History: Denies: Hx Peritoneal Dialysis Malignancy Medical History: Reports Other - Laryngeal cancer Musculoskeletal Medical History: Denies Hx Arthritis Past Surgical History: Reports: Hx Oral Surgery - laynectomy 2010, Other - The patient is with a post laryngectomy stoma site - Immunizations Hx Diphtheria, Pertussis, Tetanus Vaccination: Yes Hx Pneumococcal Vaccination: 02/07/09 Review of Systems - Review of Systems Musculoskeletal: See HPI Skin: See HPI -: Yes All other systems reviewed and negative Physical Exam - Vital signs Vitals: Temp Pulse Resp BP Pulse Ox 98.7 F 68 20 166/84 H 95 08/25/19 15:38 08/25/19 15:38 08/25/19 15:38 08/25/19 15:38 08/25/19 15:38 - Notes Notes: This is a 74-year-old male appears his stated age, no acute distress. Vital signs reviewed, please refer to chart. Head is normocephalic. He has a curvilinear shaped 2 cm laceration to the posterior scalp, overlying the posterior occiput. No foreign body. No active bleeding. Pupils equal round, reactive to light. Nares are patent without septal hematoma. No facial bone tenderness, no orbital stepoff. Oral mucosa is moist. Uvula is midline. Examination of the spine yields no midline tenderness or step-off. No asif gurpreet musculature tenderness is appreciated. Tracheostomy in place, no surrounding erythema. Heart is regular rate and rhythm. Lungs are clear to auscultation bilaterally. Chest wall excursion is equal, chest is nontender. Abdomen is soft, nontender, normoactive bowel sounds throughout. Extremities without cyanosis, clubbing. Posterior calves are nontender. Peripheral pulses are equal. Skin is warm and dry. Patient with 4 cm U-shaped laceration overlying the proximal ulna. No foreign body. Patient is awake, alert, oriented x3. Cranial nerves II - XII are grossly intact without focal neurological deficits. Strength is plus 5 out of 5 bilateral upper and lower extremities. Sensation is intact. Reflexes symmetrical. Intact [id number], rapid alternating movements, [id number]. Course - Re-evaluation Re-evalutation: 08/25/19 17:59 Patient presents to the emergency department for evaluation. He was seen initially through triage. He was given Percocet here for pain. His images failed to reveal any acute abnormalities. Attention was turned to the scalp and left elbow laceration. These were closed by this physician, please see procedure notes. Patient tolerated this well. He will be sent home with pain medication. He is given instructions on wound care and head injury. He is to follow-up next week with Dr. Cassidy. He is to return to the emergency department for worsening or new concerning symptoms of any sort. 08/25/19 17:59 Please note the patient is not complaining of chest pain, fever, coughing worse than normal. I suspect that the changes on the x-ray of his chest are secondary to atelectasis. - Vital Signs Vital signs: Temp Pulse Resp BP Pulse Ox 98.5 F 71 16 159/79 H 99 08/25/19 17:55 08/25/19 17:55 08/25/19 17:55 08/25/19 17:55 08/25/19 17:55 - Diagnostic Test Radiology reviewed: Reports reviewed Radiology results interpreted by me: 08/25/19 17:[address] 08/25/19 15:53 IMPRESSION: CHRONIC DEGENERATIVE CHANGES. NO ACUTE FINDINGS. Chest X-Ray 08/25/19 15:53 IMPRESSION: Airspace opacity at the left lung base, may be secondary to pneumonia or atelectasis. Head CT 08/25/19 15:53 IMPRESSION: CHRONIC CHANGES OF ATROPHY AND MICROVASCULAR ISCHEMIA. NO ACUTE PROCESS. EVIDENCE OF ACUTE STROKE: NO. Elbow X-Ray 08/25/19 15:55 IMPRESSION: No acute fracture or foreign body. Elbow X-Ray 08/25/19 15:58 IMPRESSION: No acute fracture or foreign body. Procedures - Laceration/Wound Repair Head Time completed: 17:40 Wound length (cm): 2 Wound's Depth, Shape: Superficial, Other - U shaped Laceration pre-procedure: Chloraprep applied, Sterile drapes applied Anesthetic type: 1% Lidocaine Volume Anesthetic (mLs): 3 Wound explored: Clean Wound Repaired With: Susan Number of Sutures: 3 Post-procedure NV exam normal: Yes Complications: No Left Elbow Time completed: 17:46 Wound length (cm): 4.5 Wound's Depth, Shape: Superficial, Other - U shaped Laceration pre-procedure: Sterile PPE donned, Chloraprep applied Anesthetic type: 1% Lidocaine - 5 cc Volume Anesthetic (mLs): 5 Irrigated w/ Saline (mLs): 40 Wound Repaired With: Sutures Suture Size/Type: 4:0 Number of Sutures: 7 Layer Closure?: No Post-procedure wound care: Sterile dressing applied Post-procedure NV exam normal: Yes Complications: No Discharge - Discharge Clinical Impression: Laceration of left elbow Qualifiers: Encounter type: initial encounter Qualified Code(s): S51.012A - Laceration without foreign body of left elbow, initial encounter Scalp laceration Qualifiers: Encounter type: initial encounter Qualified Code(s): S01.01XA - Laceration without foreign body of scalp, initial encounter Sacral contusion Qualifiers: Encounter type: initial encounter Qualified Code(s): S30.0XXA - Contusion of lower back and pelvis, initial encounter Head injury Qualifiers: Encounter type: initial encounter Qualified Code(s): S09.90XA - Unspecified injury of head, initial encounter Contusion, elbow Qualifiers: Encounter type: initial encounter Laterality: unspecified laterality Qualified Code(s): S50.00XA - Contusion of unspecified elbow, initial encounter Condition: Stable Disposition: HOME, SELF-CARE Instructions: Antibiotic Ointment Protection ([facility]), Laceration Care ([facility]), Oral Narcotic Medication ([facility]), Soap Cleansing ([facility]) Additional Instructions: Keep wounds clean with soap and water. Avoid submerging in standing water. Have sutures removed in 7 to 10 days. Follow-up with Dr. Cassidy for this. Otherwise Percocet as needed for severe pain. Please watch for dizziness, drowsiness, constipation with this medication. If you develop fever, vomiting, increased pain, redness, drainage, or any other new or concerning symptoms, please return immediately to the emergency department for evaluation. Prescriptions: Oxycodone HCl/Acetaminophen [Percocet 5-325 mg Tablet] 1 tab PO Q6HP PRN #15 tablet PRN Reason: Referrals: HODAN WILBURN PA-C [PHYSICIAN DIRECTOR OF DIETARY] - Follow up as needed
[2019-08-25 17:56] VITALS: BP 159/79
== END 2019-08-25 17:55 | disposition home or self-care (01) ==
LOC: ER 15:33
DX: S51.012A Laceration without foreign body of left elbow, initial encounter (principal); S01.01XA Laceration without foreign body of scalp, initial encounter; S30.0XXA Contusion of lower back and pelvis, initial encounter; S50.00XA Contusion of unspecified elbow, initial encounter; M54.2 Cervicalgia; W11.XXXA Fall on and from ladder, initial encounter; Y93.H9 Activity, other involving exterior property and land maintenance, building and construction; M47.812 Spondylosis without myelopathy or radiculopathy, cervical region; I25.10 Atherosclerotic heart disease of native coronary artery without angina pectoris; I10 Essential (primary) hypertension; J44.9 Chronic obstructive pulmonary disease, unspecified; Z87.891 Personal history of nicotine dependence
CPT/HCPCS: 99284; 71045; 73080 ×2; 70450; 72125; 12002; J3490; A9270

== ENCOUNTER 2019-09-02 08:31 | Emergency (ER) | payer MEDICARE, OTHER ==
[2019-09-02 10:16] VITALS: BP 143/73
--- NOTE | 2019-09-02 10:17 | ER Document Report ---
ED Suture/Wound Recheck - General Chief Complaint: Staple Removal Stated Complaint: SUTURE/STAPLE REMOVAL Time Seen by Provider: 09/02/19 10:06 Primary Care Provider: MANUEL SIMS MD [Primary Care Provider] - Follow up as needed EDUARDO SINGH JR, DO [ACTIVE PROVISIONAL STAFF] - Follow up as needed Mode of Arrival: Ambulatory Information source: Patient Notes: 74-year-old male presented to ED for removal of susan from head and Steri- Strips from left elbow. He states he fell off of a ladder when cleaning the gutters last week. The scabs laceration is well-healed the laceration to the elbow is currently Steri-Strips. He states he needs some sutures out so we will apply Steri-Strips to the site. Patient and family have been instructed that the Steri-Strips need to stay at least 4 days. TRAVEL OUTSIDE OF THE [place] IN LAST 30 DAYS: No - HPI Previous ED treatment: Laceration repair Quality of pain: No pain Severity: None Pain Level: Denies Context: Injury Symptoms since procedure: No complaints Exacerbated by: Denies Relieved by: Denies - Related Data Allergies/Adverse Reactions: No Known Allergies Allergy (Verified 09/02/19 09:37) Past Medical History - Social History Smoking Status: Never Smoker Frequency of alcohol use: Heavy Drug Abuse: None Lives with: Family Family History: None, Reviewed & Not Pertinent Patient has homicidal ideation: No - Past Medical History Cardiac Medical History: Reports: Hx Coronary Artery Disease, Hx Hypertension Pulmonary Medical History: Reports: Hx Asthma, Hx Bronchitis, Hx COPD EENT Medical History: Reports: None Neurological Medical History: Reports: None Endocrine Medical History: Reports: None Renal/ Medical History: Reports: None Malignancy Medical History: Reports None GI Medical History: Reports: None Musculoskeletal Medical History: Reports None Skin Medical History: Reports None Psychiatric Medical History: Reports: None Traumatic Medical History: Reports: None Infectious Medical History: Reports: None Past Surgical History: Reports: Hx Oral Surgery - laynectomy 2010, Other - The patient is with a post laryngectomy stoma site - Immunizations Hx Diphtheria, Pertussis, Tetanus Vaccination: Yes Hx Pneumococcal Vaccination: 02/07/09 Review of Systems - Review of Systems Constitutional: No symptoms reported EENT: No symptoms reported Cardiovascular: No symptoms reported Respiratory: No symptoms reported Gastrointestinal: No symptoms reported Genitourinary: No symptoms reported Male Genitourinary: No symptoms reported Musculoskeletal: Other Skin: Other - sutures removed from left elbow susan from scalp Steri-Strips to elbow Hematologic/Lymphatic: No symptoms reported Neurological/Psychological: No symptoms reported Physical Exam - Vital signs Vitals: Temp Pulse Resp BP Pulse Ox 98.5 F 59 L 20 132/69 H 96 09/02/19 08:35 09/02/19 08:35 09/02/19 08:35 09/02/19 08:35 09/02/19 08:35 Interpretation: Normal - General General appearance: Appears well, Alert - HEENT Head: Normocephalic, Atraumatic Eyes: Normal Pupils: PERRL - Respiratory Respiratory status: No respiratory distress Chest status: Nontender Breath sounds: Normal Chest palpation: Normal - Cardiovascular Rhythm: Regular Heart sounds: Normal auscultation Murmur: No - Abdominal Inspection: Normal Distension: No distension Bowel sounds: Normal Tenderness: Nontender Organomegaly: No organomegaly - Back Back: Normal, Nontender - Extremities General upper extremity: Normal inspection, Nontender, Normal color, Normal ROM, Normal temperature General lower extremity: Normal inspection, Nontender, Normal color, Normal ROM, Normal temperature, Normal weight bearing. No: Cayla's sign - Neurological Neuro grossly intact: Yes Cognition: Normal Orientation: AAOx4 [place] Coma Scale Eye Opening: Spontaneous [place] Coma Scale Verbal: Oriented [place] Coma Scale Motor: Obeys Commands [place] Coma Scale Total: 15 Speech: Normal Motor strength normal: LUE, RUE, LLE, RLE Sensory: Normal - Psychological Associated symptoms: Normal affect, Normal mood - Skin Skin Temperature: Warm Skin Moisture: Dry Skin Color: Normal Location of irregularity: Scalp - Susan 3, Extremities - Sutures removed from left elbow Steri-Strips applied wound healing well Course - Vital Signs Vital signs: Temp Pulse Resp BP Pulse Ox 98.7 F 61 15 143/73 H 100 09/02/19 10:14 09/02/19 10:14 09/02/19 10:14 09/02/19 10:14 09/02/19 10:14 Discharge - Discharge Clinical Impression: Removal of staple, Visit for suture removal Elbow joint effusion Qualifiers: Laterality: left Qualified Code(s): M25.422 - Effusion, left elbow Condition: Stable Disposition: HOME, SELF-CARE Instructions: Staple Removal ([facility]), Suture Removal Additional Instructions: Care of Steri-Strip Closure Your cut has been closed up with a special surgical tape. For this type of cut, it can replace stitches. You must protect the wound just as you would with stitches, however. For the first few days, keep the wound area completely dry. This also means you should avoid activity which makes you sweat. Do not move the area if motion stretches or wrinkles the strips. Don't allow the area to be bumped -- if bleeding occurs, the blood can make the strips loosen. The strips are somewhat waterproof. After a few days, the physician may allow you to shower. Be sure to ask if it's OK. Do not remove the tape until it peels off by itself. At that time, the wound should be healed. Elbow Effusion Your elbow shows no sign of fracture. However, there is fluid (probably blood) within the elbow joint. This may be due to a subtle cartilage injury or sprain, but it may also be a sign of a hidden fracture at the elbow. The usual treatment is to immobilize the elbow, and treat it exactly as if it were broken. Then in a few days, the joint will be rechecked by the physician for evidence of a hidden fracture. This follow-up is important -- the elbow must be checked as often as necessary until the physician is sure there is no broken bone. You should call the doctor or return at once if the elbow or forearm becomes severely painful or swollen, or if you become numb in the arm or hand. You need to follow-up with orthopedics for your elbow effusion FOLLOW-UP CARE: If you have been referred to a physician for follow-up care, call the [facility] office for an appointment as you were instructed or within the next two days. If you experience worsening or a significant change in your symptoms, notify the physician immediately or return to the Emergency Department at any time for re-evaluation. Referrals: MANUEL SIMS MD [Primary Care Provider] - Follow up as needed EDUARDO SINGH JR, DO [ACTIVE PROVISIONAL STAFF] - Follow up as needed
== END 2019-09-02 10:15 | disposition home or self-care (01) ==
LOC: ER 08:31
DX: S51.012D Laceration without foreign body of left elbow, subsequent encounter (principal); M25.422 Effusion, left elbow; X58.XXXD Exposure to other specified factors, subsequent encounter; I25.10 Atherosclerotic heart disease of native coronary artery without angina pectoris; I10 Essential (primary) hypertension; J44.9 Chronic obstructive pulmonary disease, unspecified